=== PATIENT | male | born 1975 | race Caucasian/White ===

== ENCOUNTER 2016-07-25 11:35 | Inpatient (IN) | payer OTHER ==
[2016-07-25 11:53] VITALS: BMI 19.8
[2016-07-25] MEDS ORDERED: IBUPROFEN 400 MG TABLET (FP) PO PRN (13:14)
[2016-07-25] MEDS ORDERED: MAGNESIUM CITRATE 300 ML BOTTLE PO PRN (13:14)
[2016-07-25] MEDS ORDERED: ACETAMINOPHEN 325 MG TABLET (FP) PO PRN (13:14)
[2016-07-25] MEDS ORDERED: guaiFENesin/D-METHORPHAN HB 10 ML UNIT-DOSE CUPS PO PRN (13:14)
[2016-07-25] MEDS ORDERED: chlordiazePOXIDE HCL 25 MG CAPSULE PO PRN (13:14)
[2016-07-25] MEDS ORDERED: MAG HYDROX/AL HYDROX/SIMETH 30 ML UNIT-DOSE CUP PO PRN (13:14)
[2016-07-25] MEDS ORDERED: MAGNESIUM HYDROX 2400MG/30ML ORAL SUSPENSION 30 ML CUP PO PRN (13:14)
[2016-07-25] MEDS ORDERED: P-EPHED 60MG/TRIPROLIDI 2.5MG TABLET PO PRN (13:14)
[2016-07-25] MEDS ORDERED: LOPERAMIDE HCL 2 MG CAPSULE PO PRN (13:14)
[2016-07-25] MEDS ORDERED: MENTHOL/PHENOL 1 EACH UD MM PRN (13:14)
[2016-07-25] MEDS ORDERED: NICOTINE POLACRILEX 4 MG GUM BUC PRN (13:14)
--- NOTE | 2016-07-25 13:14 | HP ---
CIWA Score - CIWA Score Nausea/Vomitin Muscle Tremors: 4-Moderate,w/Arms Extend Anxiety: 4-Mod. Anxious/Guarded Agitation: 4-Moderately Restless Paroxysmal Sweats: 3 Orientation: 0-Oriented Tacttile Disturbances: 1-Very Mild Itch/Numbness Auditory Disturbances: 0-None Visual Disturbances: 0-None Headache: 1-Very Mild CIWA-Ar Total Score: 22 Admission ROS BHS - HPI Chief Complaint: requesting detoxification from alcohol Allergies/Adverse Reactions: Allergies Allergy/AdvReac Type Severity Reaction Status Date / Time diphenhydramine HCl Allergy Severe Difficulty Verified 07/25/16 13:10 [From Benadryl] Breathing History of Present Illness: 40 yo m w h/o alcohol dependence since age 16, h/o alcohol withdrawal seizures, last seizure 3-4 months ago, on keppra for alcohol withdrawal 8 25 fl oz beer cans and vodka daily, last drink this AM. took benzodiazepines prescribed by MD for detox. Signed out AMA last month because of court date. no other illicit drug use reported PMHX asthma, depression, anxiety and insomnia reports recent wt loss and dry heaves Exam Limitations: No Limitations - Ebola screening Have you traveled outside of the country in the last 21 days: No Have you had contact with anyone from an Ebola affected area: No Have you been sick,other than usual withdrawal symptoms: No Do you have a fever: No - Review of Systems Constitutional: See HPI, Loss of Appetite, Changes in sleep, Unintentional Wgt. Loss EENT: reports: No Symptoms Reported (from asthma, not present now) Respiratory: reports: Shortness of Breath, Wheezing Cardiac: reports: No Symptoms Reported GI: reports: Nausea, Poor Appetite, Poor Fluid Intake, Vomiting, Abdominal cramping : reports: No Symptoms Reported Musculoskeletal: reports: No Symptoms Reported Integumentary: reports: Dryness, Other (eczema) Neuro: reports: Seizure (alcohol withdrawal seizure on keppra, last seizure seeral months ago), Tremors Endocrine: reports: No Symptoms Reported Hematology: reports: No Symptoms Reported Psychiatric: reports: Judgement Intact, Mood/Affect Appropiate, Orientated x3, Anxious, Depressed Other Systems: Reviewed and Negative Patient History - Patient Medical History Hx Anemia: No Hx Asthma: Yes (on albuterol inhaler) Hx Chronic Obstructive Pulmonary Disease (COPD): No Hx Cancer: No Hx Cardiac Disorders: No Hx Congestive Heart Failure: No Hx Hypertension: No Hx Hypercholesterolemia: No Hx Pacemaker: No HX Cerebrovascular Accident: No Hx Seizures: Yes (last in 04/17) Hx Dementia: No Hx Diabetes: No Hx Gastrointestinal Disorders: No Hx Liver Disease: No Hx Genitourinary Disorders: No Hx Sexually Transmitted Disorders: No Hx Renal Disease (ESRD): No Hx Thyroid Disease: No Hx Human Immunodeficiency Virus (HIV): No Hx Hepatitis C: No Hx Depression: Yes (anxiety) Hx Suicide Attempt: No Hx Bipolar Disorder: No Hx Schizophrenia: No - Patient Surgical History Past Surgical History: No Hx Neurologic Surgery: No Hx Cataract Extraction: No Hx Cardiac Surgery: No Hx Lung Surgery: No Hx Breast Surgery: No Hx Breast Biopsy: No Hx Abdominal Surgery: No Hx Appendectomy: No Hx Cholecystectomy: No Hx Genitourinary Surgery: No Hx Section: No Hx Orthopedic Surgery: No Anesthesia Reaction: No - PPD History Date: 06/08/15 Results: 0 MM - Reproductive History Patient is a Female of Child Bearing Age (11 -55 yrs old): No Patient : No - Smoking Cessation Smoking history: Current every day smoker Have you smoked in the past 12 months: Yes Aproximately how many cigarettes per day: 30 Cigars Per Day: 0 Hx Chewing Tobacco Use: No Initiated information on smoking cessation: Yes 'Breaking Loose' booklet given: 07/25/16 - Substance & Tx. History Hx Alcohol Use: Yes (beer and vodka dily) Hx Substance Use: Yes Substance Use Type: Alcohol, Tranquilizers Hx Substance Use Treatment: Yes - Substances Abused Alcohol Route: Oral Frequency: Daily Amount used: 8 25 OZ BEERS Age of first use: 16 Date of Last Use: 07/25/16 Family Disease History - Family Disease History Family Disease History: Diabetes: Grandparent, Heart Disease: Father ( [place]), [place]: Grandparent, Other: Father, Mother (alive, no med hx) Admission Physical Exam BHS - Vital Signs Vital Signs: Vital Signs - 24 hr 07/25/16 11:47 Temperature 97 F L Pulse Rate 101 H Respiratory 20 Rate Blood Pressure 133/73 - Physical General Appearance: Yes: Disheveled, Mild Distress, Alcohol on Breath, Thin, Tremorous, Irritable, Sweating, Anxious HEENTM: Yes: EOMI, Hearing grossly Normal, Normal ENT Inspection, Normocephalic , Normal Voice, MIGUEL A, Pharynx Normal Respiratory: Yes: Within Normal Limits, Chest Non-Tender, Lungs Clear, Normal Breath Sounds, No Respiratory Distress, No Accessory Muscle Use Neck: Yes: Within Normal Limits, No masses,lesions,Nodules, Supple, Trachea in good position Breast: Yes: Breast Exam Deferred Cardiology: Yes: Within Normal Limits, Regular Rhythm, Regular Rate, S1, S2 Abdominal: Yes: Within Normal Limits, Normal Bowel Sounds, Non Tender, Flat, Soft Genitourinary: Yes: Within Normal Limits Back: Yes: Within Normal Limits, Normal Inspection Musculoskeletal: Yes: Within Normal Limits, full range of Motion, Gait Steady Extremities: Yes: Within Normal Limits, Normal Capillary Refill, Normal Inspection, Normal Range of Motion, Non-Tender, Tremors Neurological: Yes: Within Normal Limits, stna II-XII NML intact, Fully Oriented, Alert, Motor Strength 5/5, Normal Response, Depressed Affect Integumentary: Yes: Within Normal Limits, Normal Color, Dry, Warm Lymphatic: Yes: Within Normal Limits - Diagnostic (1) Alcohol dependence with uncomplicated withdrawal Current Visit: Yes Status: Chronic (2) Drug-induced mood disorder Current Visit: Yes Status: Acute (3) Anxiety disorder Current Visit: No Status: Chronic Qualifiers: Anxiety disorder type: generalized anxiety disorder Qualified Code(s ): F41.1 - Generalized anxiety disorder (4) Asthma Current Visit: No Status: Chronic Qualifiers: Asthma severity: mild intermittent Asthma complication type: uncomplicated Qualified Code(s): J45.20 - Mild intermittent asthma, uncomplicated (5) GERD (gastroesophageal reflux disease) Current Visit: No Status: Chronic Qualifiers: Esophagitis presence: without esophagitis Qualified Code(s): K21.9 - Gastro-esophageal reflux disease without esophagitis (6) MDD (major depressive disorder) Current Visit: No Status: Chronic (7) Nicotine dependence Current Visit: Yes Status: Chronic Qualifiers: Nicotine product type: cigarettes Substance use status: uncomplicated Qualified Code(s): F17.210 - Nicotine dependence, cigarettes, uncomplicated (8) OCD (obsessive compulsive disorder) Current Visit: No Status: Chronic (9) Sedative, hypnotic, or anxiolytic withdrawal Current Visit: No Status: Inactive (10) Seizure Current Visit: No Status: Inactive (11) Weight loss Current Visit: Yes Status: Acute BHS Breath Alcohol Content Breath Alcohol Content: 0.157 Urine Drug Screen - Control Is Test Valid: Yes - Results Drug Screen Negative: No Urine Drug Screen Results: BZO-Benzodiazepines
[2016-07-25] MEDS ORDERED: ALBUTEROL SO4 6.7 GM HFA INHALER IH PRN (13:19)
[2016-07-25] MEDS ORDERED: chlordiazePOXIDE HCL 25 MG CAPSULE PO ONE (14:42)
[2016-07-25] MEDS: levETIRAcetam 500 MG TABLET (FP) PO SCH ×2 (15:27→22:17)
[2016-07-25] MEDS: NICOTINE 21 MG/24 HOURS TOPICAL PATCH TD SCH (15:28)
[2016-07-25] MEDS: VITAMINS A AND D TOPICAL OINTMENT 60 GM TUBE TP SCH (15:52)
--- NOTE | 2016-07-25 16:06 | EKG ---
Test Reason : Blood Pressure : / mmHG Vent. Rate : 089 BPM Atrial Rate : 089 BPM P-R Int : 136 ms QRS Dur : 082 ms QT Int : 336 ms P-R-T Axes : 061 075 059 degrees QTc Int : 408 ms NORMAL SINUS RHYTHM MINIMAL VOLTAGE CRITERIA FOR LVH, MAY BE NORMAL VARIANT BORDERLINE ECG NO PREVIOUS ECGS AVAILABLE Confirmed by CHARO PRAKASH MD ([id number]) on 07/25/2016 4:06:21 PM Referred By: Austin Awad Confirmed By:CHARO PRAKASH MD
[2016-07-25] MEDS: chlordiazePOXIDE HCL 25 MG CAPSULE PO SCH ×2 (17:14→22:17)
--- NOTE | 2016-07-25 17:51 | CONSULT ---
[facility] Psychiatric Consult - Data Date of interview: 07/25/16 Admission source: [facility] Identifying data: This is one of multiple admisssions to [facility] for this 40 y /o male seeking detox treatment on for alcohol and benzodiazepine dependence.Patient is single without children,domiciled, unemployed and supported by his parents. Substance Abuse History: - Smoking Cessation. Smoking history: Current every day smoker. Have you smoked in the past 12 months: Yes. Aproximately how many cigarettes per day: 30. Cigars Per Day: 0. Hx Chewing Tobacco Use: No. Initiated information on smoking cessation: Yes. 'Breaking Loose' booklet given : 07/25/16. - Substance & Tx. History. Hx Alcohol Use: Yes (beer and vodka dily). Hx Substance Use: Yes. Substance Use Type: Alcohol, Tranquilizers. Hx Substance Use Treatment: Yes. - Substances Abused. Alcohol. Route: Oral. Frequency: Daily. Amount used: 8 25 OZ BEERS. Age of first use: 16. Date of Last Use: 07/25/16. Confirmed by patient. Medical History: Consistent with a history of bronchial asthma,GERD and substance-induced seizures. Psychiatric History: First contact with Psychiatry occurred approximately 20 years ago.No reported history of psychiatric hospitalizations.Mr Aquino has been diagnosed with Anxiety Disorder and Panic Disorder.He gets his outpatient psychiatric services at the [facility] clinic (formerly [facility]) where he sees Dr Islas for medication management (effexor XR 150 mg daily & 75 mg hs + remeron 30 mg po hs).Patient denies history of suicide attempts. Physical/Sexual Abuse/Trauma History: Patient denies. Additional Comment: Urine Drug Screen Results: BZO-Benzodiazepines.Noted. Psychiatric Findings - Problem List ([place] 1, 2,3) (1) Alcohol dependence with uncomplicated withdrawal Current Visit: Yes Status: Acute (2) Nicotine dependence Current Visit: Yes Status: Acute Qualifiers: Nicotine product type: cigarettes Substance use status: uncomplicated Qualified Code(s): F17.210 - Nicotine dependence, cigarettes, uncomplicated (3) Anxiety disorder Current Visit: Yes Status: Chronic Qualifiers: Anxiety disorder type: generalized anxiety disorder Qualified Code(s ): F41.1 - Generalized anxiety disorder (4) GERD (gastroesophageal reflux disease) Current Visit: No Status: Chronic Qualifiers: Esophagitis presence: without esophagitis Qualified Code(s): K21.9 - Gastro-esophageal reflux disease without esophagitis (5) MDD (major depressive disorder) Current Visit: No Status: Chronic (6) OCD (obsessive compulsive disorder) Current Visit: No Status: Chronic Comment: By history. (7) Asthma Current Visit: No Status: Chronic Qualifiers: Asthma severity: mild intermittent Asthma complication type: uncomplicated Qualified Code(s): J45.20 - Mild intermittent asthma, uncomplicated - Initial Treatment Plan Initial Treatment Plan: Psychoeducation.Detoxification.Medications : remeron 30 mg po hs + effexor ER 150 mg po daily + 75 mg po @ 4 pm (no later).Side effects/ benefits discussed with the patient,including the risk of hypertension/seizures (venlafaxine).Mr Aquino indicated that he understood the information and he verbally consented to the implementation of this careplan.According to the patient,he took the remeron last night at home and a dose of effexor this morning prior to coming to [facility].Observation.Review of pharmacy claims confirms medications as reported by the patient (filled scripts issued on 07/01/16 for remeron 30mg/hs # 30 @ [facility] and 07/19/16 for effexor ER 150 mg/75 mg ).
[2016-07-25] MEDS: METOCLOPRAMIDE HCL 10 MG TABLET (FP) PO PRN (18:56)
[2016-07-25] MEDS: hydrOXYzine PAMOATE 50 MG CAPSULE (FP) PO PRN (19:51)
[2016-07-25 20:06] LABS: URINE APPEARANCE CLEAR; URINE BILIRUBIN NEGATIVE (NEGATIVE); URINE BLOOD NEGATIVE (NEGATIVE); URINE COLOR YELLOW; URINE GLUCOSE (UA) NEGATIVE (NEGATIVE); URINE KETONE NEGATIVE (NEGATIVE); URINE LEUK ESTERASE NEGATIVE (NEGATIVE); URINE NITRITE NEGATIVE (NEGATIVE); URINE PROTEIN NEGATIVE (NEGATIVE); URINE UROBILINOGEN NEGATIVE E.U./dl (0.2-1.0)
[2016-07-25] MEDS ORDERED: VENLAFAXINE HCL 75 MG TABLET PO SCH (22:00)
[2016-07-25] MEDS: MIRTAZAPINE 30 MG TABLET (FP) PO SCH (22:17)
[2016-07-25] MEDS: THIAMINE HCL 100 MG TABLET (FP) PO SCH (22:17)
[2016-07-26] MEDS: chlordiazePOXIDE HCL 25 MG CAPSULE PO SCH ×4 (04:53→22:20)
[2016-07-26] MEDS: VENLAFAXINE HCL 150 MG E.R. CAPSULE PO SCH (08:36)
[2016-07-26 09:25] LABS: HIV 1 & 2 AB NEGATIVE; HIV 1 AGp24 NEGATIVE
[2016-07-26] MEDS ORDERED: PRENATAL VITAMINS W/ FOLIC ACID TABLET (FP) PO SCH (10:00)
[2016-07-26 10:15] LABS: MCH 33.1 pg (25.7-33.7); MCHC 33.6 g/dl (32.0-35.9); MEAN CELL VOLUME 98.5 fl (80-96); MEAN PLT VOLUME 7.7 fl (7.5-11.1); PLATELET COUNT 384 K/MM3 (134-434); RDW 14.3 % (11.9-15.9); WHITE BLOOD COUNT 5.4 K/mm3 (4.0-10.0)
[2016-07-26] MEDS: METOCLOPRAMIDE HCL 10 MG TABLET (FP) PO PRN ×2 (10:23→16:58)
[2016-07-26] MEDS: levETIRAcetam 500 MG TABLET (FP) PO SCH ×2 (10:23→22:20)
[2016-07-26] MEDS: NICOTINE 21 MG/24 HOURS TOPICAL PATCH TD SCH (10:24)
[2016-07-26] MEDS: VITAMINS A AND D TOPICAL OINTMENT 60 GM TUBE TP SCH (10:24)
--- NOTE | 2016-07-26 10:34 | PN ---
[facility] CIWA - CIWA Score Nausea/Vomitin-Int. Nausea w/Dry Heave Muscle Tremors: 4-Moderate,w/Arms Extend Anxiety: 3 Agitation: 3 Paroxysmal Sweats: 3 Orientation: 0-Oriented Tacttile Disturbances: 1-Very Mild Itch/Numbness Auditory Disturbances: 0-None Visual Disturbances: 0-None Headache: 0-None Present CIWA-Ar Total Score: 18 BHS Progress Note (SOAP) Subjective: interrupted sleep, nausea, tremor , Objective: 07/26/16 10:33 Vital Signs Temperature 97.7 F 07/26/16 09:35 Pulse Rate 93 H 07/26/16 09:35 Respiratory Rate 18 07/26/16 09:35 Blood Pressure 127/90 07/26/16 09:35 O2 Sat by Pulse Oximetry (%) Laboratory Tests 07/25/16 07/25/16 07/26/16 13:40 17:08 05:50 WBC 5.4 RBC 4.89 Hgb 16.2 Hct 48.2 MCV 98.5 H MCHC 33.6 RDW 14.3 Plt Count 384 MPV 7.7 Urine Color Yellow Urine Appearance Clear Urine pH 6.0 Ur Specific [place] 1.017 Urine Protein Negative Urine Glucose (UA) Negative Urine Ketones Negative Urine Blood Negative Urine Nitrite Negative Urine Bilirubin Negative Urine Urobilinogen Negative Ur Leukocyte Esterase Negative HIV 1&2 Antibody Screen Negative HIV P24 Antigen Negative pt aox3 in nad ambulating Assessment: 07/26/16 10:34 withdrawl sx;s Plan: cont. detox increase fluids prn librium
[2016-07-26] MEDS ORDERED: COLLOIDAL OATMEAL 1 BAR EACH TP PRN (10:48)
[2016-07-26 11:06] LABS: ALBUMIN 4.3 g/dl (3.4-5.0); ALK PHOS 74 U/L (45-117); ANION GAP 9 (8-16); BILIRUBIN,TOTAL 0.2 mg/dL (0.2-1.0); CALCIUM 8.9 mg/dL (8.5-10.1); CO2 27 mmol/L (21-32); CREATININE 0.7 mg/dL (0.7-1.3); GLUCOSE,RANDOM 86 mg/dL (74-106); SGOT/AST 50 U/L (15-37); SGPT/ALT 46 U/L (12-78); TOT PROT 7.8 g/dl (6.4-8.2)
[2016-07-26] MEDS: hydrOXYzine PAMOATE 50 MG CAPSULE (FP) PO PRN ×2 (13:10→20:07)
--- NOTE | 2016-07-26 14:34 | PN ---
[facility] Progress Note Note: Psychiatry Attending's note :
[2016-07-26] MEDS ORDERED: VENLAFAXINE HCL 75 MG E.R. CAPSULES (FP) PO SCH (21:00)
[2016-07-26] MEDS: THIAMINE HCL 100 MG TABLET (FP) PO SCH (22:20)
[2016-07-26] MEDS: MIRTAZAPINE 30 MG TABLET (FP) PO SCH (22:20)
[2016-07-27] MEDS: chlordiazePOXIDE HCL 25 MG CAPSULE PO SCH (05:28)
[2016-07-27] MEDS: VENLAFAXINE HCL 150 MG E.R. CAPSULE PO SCH (07:44)
[2016-07-27 09:35] VITALS: BP 111/80; PULSE 95; TEMP 97.5
--- NOTE | 2016-07-27 09:44 | PN ---
[facility] CIWA - CIWA Score Nausea/Vomitin-No Nausea/No Vomiting Muscle Tremors: 3 Anxiety: 3 Agitation: 3 Paroxysmal Sweats: 3 Orientation: 0-Oriented Tacttile Disturbances: 0-None Auditory Disturbances: 0-None Visual Disturbances: 0-None Headache: 1-Very Mild CIWA-Ar Total Score: 13 S Progress Note (SOAP) Subjective: agitation sweats irritable mild shakes Objective: 07/27/16 09:41 Vital Signs Temperature 97.5 F L 07/27/16 09:34 Pulse Rate 95 H 07/27/16 09:34 Respiratory Rate 20 07/27/16 09:34 Blood Pressure 111/80 07/27/16 09:34 O2 Sat by Pulse Oximetry (%) Laboratory Tests 07/25/16 07/25/16 07/26/16 13:40 17:08 05:50 WBC 5.4 RBC 4.89 Hgb 16.2 Hct 48.2 MCV 98.5 H MCHC 33.6 RDW 14.3 Plt Count 384 MPV 7.7 Sodium Potassium Chloride Carbon Dioxide Anion Gap BUN Creatinine Creat Clearance w eGFR Random Glucose Calcium Total Bilirubin AST ALT Alkaline Phosphatase Total Protein Albumin Urine Color Yellow Urine Appearance Clear Urine pH 6.0 Ur Specific [place] 1.017 Urine Protein Negative Urine Glucose (UA) Negative Urine Ketones Negative Urine Blood Negative Urine Nitrite Negative Urine Bilirubin Negative Urine Urobilinogen Negative Ur Leukocyte Esterase Negative RPR Titer HIV 1&2 Antibody Screen Negative HIV P24 Antigen Negative 07/26/16 07/26/16 05:50 05:50 WBC RBC Hgb Hct MCV MCHC RDW Plt Count MPV Sodium 139 Potassium 4.5 Chloride 103 Carbon Dioxide 27 Anion Gap 9 BUN 6 L Creatinine 0.7 Creat Clearance w eGFR > 60 Random Glucose 86 D Calcium 8.9 Total Bilirubin 0.2 D AST 50 H D ALT 46 Alkaline Phosphatase 74 Total Protein 7.8 Albumin 4.3 Urine Color Urine Appearance Urine pH Ur Specific [place] Urine Protein Urine Glucose (UA) Urine Ketones Urine Blood Urine Nitrite Urine Bilirubin Urine Urobilinogen Ur Leukocyte Esterase RPR Titer Nonreactive HIV 1&2 Antibody Screen HIV P24 Antigen awake/alert ambulating no acute distress Assessment: 07/27/16 09:42 withdrawal sx Plan: continue detox increase fluids
--- NOTE | 2016-07-27 09:52 | PN ---
[facility] Progress Note Note: pt states he feels better and wants to sign out. pt spoke with counselor, RN, and [facility] but pt still insist to leave.
--- NOTE | 2016-07-27 09:59 | DS ---
[facility] Detox Discharge Summary Admission Date: 07/25/16 Discharge Date: 07/27/16 (refused to complete detox. AMA) - History Present History: Alcohol Dependence - Physical Exam Results Vital Signs: Vital Signs Temperature 97.5 F L 07/27/16 09:34 Pulse Rate 95 H 07/27/16 09:34 Respiratory Rate 20 07/27/16 09:34 Blood Pressure 111/80 07/27/16 09:34 O2 Sat by Pulse Oximetry (%) - Medication Discharge Medications: Ambulatory Orders Albuterol Sulfate Inhaler - [Ventolin Hfa Inhaler -] 2 inh PO Q4H PRN 06/06/15 Levetiracetam [Keppra -] 1,000 mg PO BID 03/26/16 Mirtazapine [Remeron -] 30 mg PO HS #30 tablet 06/07/16 Venlafaxine HCl ER [Effexor Xr -] 75 mg PO HS #30 cap.er.24h 06/07/16 Venlafaxine HCl ER [Effexor Xr -] 150 mg PO DAILY #30 cap.er.24h 06/07/16 Metoclopramide HCl [Reglan -] 10 mg PO BID PRN 07/25/16 Petrolatum,White/Lanolin [Vitamin A & D Ointment] 454 gm TP DAILY 07/25/16 Mirtazapine [Remeron -] 30 mg PO HS #30 tablet 07/26/16 - Diagnosis (1) Alcohol dependence with uncomplicated withdrawal Current Visit: Yes Status: Chronic (2) Drug-induced mood disorder Current Visit: Yes Status: Acute (3) Nicotine dependence Current Visit: Yes Status: Chronic Qualifiers: Nicotine product type: cigarettes Substance use status: uncomplicated Qualified Code(s): F17.210 - Nicotine dependence, cigarettes, uncomplicated (4) Weight loss Current Visit: Yes Status: Acute (5) Anxiety disorder Current Visit: Yes Status: Chronic Qualifiers: Anxiety disorder type: generalized anxiety disorder Qualified Code(s ): F41.1 - Generalized anxiety disorder (6) Asthma Current Visit: Yes Status: Chronic Qualifiers: Asthma severity: mild intermittent Asthma complication type: uncomplicated Qualified Code(s): J45.20 - Mild intermittent asthma, uncomplicated (7) GERD (gastroesophageal reflux disease) Current Visit: Yes Status: Chronic Qualifiers: Esophagitis presence: without esophagitis Qualified Code(s): K21.9 - Gastro-esophageal reflux disease without esophagitis (8) MDD (major depressive disorder) Current Visit: No Status: Chronic (9) OCD (obsessive compulsive disorder) Current Visit: No Status: Chronic - AMA Did Patient Leave Against Medical Advice: Yes
[2016-07-27] MEDS ORDERED: chlordiazePOXIDE 5 MG CAPSULE PO SCH (17:00)
[2016-07-28] MEDS ORDERED: chlordiazePOXIDE HCL 10 MG CAPSULE PO SCH (17:00)
== END 2016-07-27 12:07 | disposition left against medical advice (07) | DRG 770 ==
LOC: YASAS 11:35 → Y6N 14:31
PROVIDERS: ADMIT Internal Medicine Addiction Medicine; ATTEND Internal Medicine Addiction Medicine
PROC: HZ2ZZZZ Detoxification Services for Substance Abuse Treatment (ICD-10-PCS; principal; 2016-07-25)
DX: F10.230 Alcohol dependence with withdrawal, uncomplicated (principal); F13.230 Sedative, hypnotic or anxiolytic dependence with withdrawal, uncomplicated; F17.210 Nicotine dependence, cigarettes, uncomplicated; F19.24 Other psychoactive substance dependence with psychoactive substance-induced mood disorder; F41.1 Generalized anxiety disorder; F33.9 Major depressive disorder, recurrent, unspecified; F42.9 Obsessive-compulsive disorder, unspecified; J45.20 Mild intermittent asthma, uncomplicated; K21.9 Gastro-esophageal reflux disease without esophagitis; Z86.69 Personal history of other diseases of the nervous system and sense organs; Z87.898 Personal history of other specified conditions
CPT/HCPCS: 36415; 80053; 81003; 85027; 86593; 87389; 93005; 93010

== ENCOUNTER 2017-02-07 13:55 | Inpatient (IN) | payer OTHER ==
[2017-02-07 15:28] VITALS: BMI 19.4
--- NOTE | 2017-02-07 19:09 | HP ---
CIWA Score - CIWA Score Nausea/Vomitin Muscle Tremors: 3 Anxiety: 3 Agitation: 3 Paroxysmal Sweats: 2 Orientation: 0-Oriented Tacttile Disturbances: 2-Mild Itch/Numbness/Burn Auditory Disturbances: 2-Mild Harshness/Frighten Visual Disturbances: 2-Mild Sensitivity Headache: 2-Mild CIWA-Ar Total Score: 22 Admission ROS BHS - HPI Chief Complaint: i am here for detox from alcohol and valium Allergies/Adverse Reactions: Allergies Allergy/AdvReac Type Severity Reaction Status Date / Time diphenhydramine HCl Allergy Severe Difficulty Verified 02/07/17 18:22 [From Benadryl] Breathing History of Present Illness: this 41 years old mal with alcohol and valium dependence,seeking detox,last treatment in 12/17 [facility] multiple admissions but keep relapsing multiple medical problem asthma,gerd,seizure,nicotine dependence, anxiety,depression,insomnia longest period of sobriety for 6 months Exam Limitations: No Limitations - Ebola screening Have you traveled outside of the country in the last 21 days: No Have you had contact with anyone from an Ebola affected area: No Have you been sick,other than usual withdrawal symptoms: No Do you have a fever: No - Review of Systems Constitutional: Chills, Loss of Appetite, Malaise, Night Sweats, Changes in sleep, Weakness, Unintentional Wgt. Loss EENT: reports: Tearing, Nose Congestion Respiratory: reports: Other (asthm) Cardiac: reports: Palpitations GI: reports: Diarrhea, Nausea, Vomiting, Abdominal cramping : reports: No Symptoms Reported Musculoskeletal: reports: Back Pain, Muscle Pain Integumentary: reports: Dryness Neuro: reports: Headache, Tremors Endocrine: reports: No Symptoms Reported Hematology: reports: No Symptoms Reported Psychiatric: reports: No Sypmtoms Reported, Judgement Intact, Mood/Affect Appropiate, Anxious, Depressed (insomnia) Patient History - Patient Medical History Hx Anemia: No Hx Asthma: Yes (on albuterol inhaler) Hx Chronic Obstructive Pulmonary Disease (COPD): No Hx Cancer: No Hx Cardiac Disorders: No Hx Congestive Heart Failure: No Hx Hypertension: No Hx Hypercholesterolemia: No Hx Pacemaker: No HX Cerebrovascular Accident: No Hx Seizures: Yes (last in 04/17) Hx Dementia: No Hx Diabetes: No Hx Gastrointestinal Disorders: No Hx Liver Disease: No Hx Genitourinary Disorders: No Hx Sexually Transmitted Disorders: No Hx Renal Disease (ESRD): No Hx Thyroid Disease: No Hx Human Immunodeficiency Virus (HIV): No Hx Hepatitis C: No Hx Depression: Yes (anxiety) Hx Suicide Attempt: No Hx Bipolar Disorder: No Hx Schizophrenia: No Other Medical History: insomnia,no suicidal,no homicidal - Patient Surgical History Past Surgical History: No Hx Neurologic Surgery: No Hx Cataract Extraction: No Hx Cardiac Surgery: No Hx Lung Surgery: No Hx Breast Surgery: No Hx Breast Biopsy: No Hx Abdominal Surgery: No Hx Appendectomy: No Hx Cholecystectomy: No Hx Genitourinary Surgery: No Hx Section: No Hx Orthopedic Surgery: No Anesthesia Reaction: No - PPD History Previous Implant?: Yes Documented Results: Negative w/proof Date: 07/27/16 Results: 0 MM PPD to be Administered?: No - Smoking Cessation Smoking history: Current every day smoker Have you smoked in the past 12 months: Yes Aproximately how many cigarettes per day: 30 Cigars Per Day: 0 Hx Chewing Tobacco Use: No Initiated information on smoking cessation: No - Substance & Tx. History Hx Alcohol Use: Yes Hx Substance Use: Yes Substance Use Type: Alcohol, Tranquilizers - Substances Abused Alcohol Route: Oral Frequency: Daily Amount used: BEER- 8, 25oz Age of first use: 16 Date of Last Use: 02/07/17 valium Route: Oral Frequency: Daily Amount used: 15 mgs Age of first use: 16 Date of Last Use: 02/07/17 Family Disease History - Family Disease History Family Disease History: Diabetes: Grandparent, Heart Disease: Father ( [place]), [place]: Grandparent, Other: Father, Mother (alive, no med hx) Admission Physical Exam S - Vital Signs Vital Signs: Vital Signs - 24 hr 02/07/17 15:27 Temperature 97 F L Pulse Rate 112 H Respiratory 20 Rate Blood Pressure 122/69 - Physical General Appearance: Yes: Moderate Distress, Tremorous, Irritable, Sweating, Anxious HEENTM: Yes: Normocephalic, MIGUEL A, Pharynx Normal Respiratory: Yes: Lungs Clear, Normal Breath Sounds, No Respiratory Distress Neck: Yes: Within Normal Limits Breast: Yes: Within Normal Limits Cardiology: Yes: Tachycardia Abdominal: Yes: Within Normal Limits, Normal Bowel Sounds, Non Tender, Flat, Soft Genitourinary: Yes: Within Normal Limits Back: Yes: Muscle Spasm Musculoskeletal: Yes: Back pain, Muscle Pain Extremities: Yes: Tremors Neurological: Yes: lead pharmacy technician II-XII NML intact, Fully Oriented, Alert, Motor Strength 5/5 Integumentary: Yes: Dry Lymphatic: Yes: Within Normal Limits - Diagnostic (1) Weight loss Current Visit: No Status: Acute (2) Alcohol dependence with uncomplicated withdrawal Current Visit: No Status: Chronic (3) Anxiety disorder Current Visit: No Status: Chronic Qualifiers: Anxiety disorder type: generalized anxiety disorder Qualified Code(s ): F41.1 - Generalized anxiety disorder (4) Asthma Current Visit: No Status: Chronic Qualifiers: Asthma severity: mild intermittent Asthma complication type: uncomplicated Qualified Code(s): J45.20 - Mild intermittent asthma, uncomplicated (5) GERD (gastroesophageal reflux disease) Current Visit: No Status: Chronic Qualifiers: Esophagitis presence: without esophagitis Qualified Code(s): K21.9 - Gastro-esophageal reflux disease without esophagitis (6) MDD (major depressive disorder) Current Visit: No Status: Chronic (7) Nicotine dependence Current Visit: No Status: Chronic Qualifiers: Nicotine product type: cigarettes Substance use status: uncomplicated Qualified Code(s): F17.210 - Nicotine dependence, cigarettes, uncomplicated (8) OCD (obsessive compulsive disorder) Current Visit: No Status: Chronic Comment: By history. (9) Uncomplicated sedative, hypnotic or anxiolytic withdrawal Current Visit: Yes Status: Acute Cleared for Admission [facility] - Detox or Rehab [facility] Level of Care: Medically Managed Detox Regimen/Protocol: Librium [facility] Breath Alcohol Content Breath Alcohol Content: 0.202 Urine Drug Screen - Results Drug Screen Negative: No Urine Drug Screen Results: BZO-Benzodiazepines
[2017-02-07] MEDS ORDERED: ACETAMINOPHEN 325 MG TABLET (FP) PO PRN (19:22)
[2017-02-07] MEDS ORDERED: P-EPHED 60MG/TRIPROLIDI 2.5MG TABLET PO PRN (19:22)
[2017-02-07] MEDS ORDERED: MAG HYDROX/AL HYDROX/SIMETH 30 ML UNIT-DOSE CUP PO PRN (19:22)
[2017-02-07] MEDS ORDERED: MAGNESIUM CITRATE 300 ML BOTTLE PO PRN (19:22)
[2017-02-07] MEDS ORDERED: guaiFENesin/D-METHORPHAN HB 10 ML UNIT-DOSE CUPS PO PRN (19:22)
[2017-02-07] MEDS ORDERED: MAGNESIUM HYDROX 2400MG/30ML ORAL SUSPENSION 30 ML CUP PO PRN (19:22)
[2017-02-07] MEDS ORDERED: IBUPROFEN 400 MG TABLET (FP) PO PRN (19:22)
[2017-02-07] MEDS ORDERED: hydrOXYzine PAMOATE 50 MG CAPSULE (FP) PO PRN (19:22)
[2017-02-07] MEDS ORDERED: LOPERAMIDE HCL 2 MG CAPSULE PO PRN (19:22)
[2017-02-07] MEDS ORDERED: MENTHOL/PHENOL 1 EACH UD MM PRN (19:22)
[2017-02-07] MEDS ORDERED: chlordiazePOXIDE HCL 25 MG CAPSULE PO ONE (19:25)
[2017-02-07] MEDS ORDERED: chlordiazePOXIDE HCL 25 MG CAPSULE PO PRN (19:25)
[2017-02-07] MEDS ORDERED: ALBUTEROL SO4 6.7 GM HFA INHALER IH PRN (19:26)
[2017-02-07] MEDS: NICOTINE 21 MG/24 HOURS TOPICAL PATCH TD SCH (20:32)
[2017-02-07] MEDS: ONDANSETRON *ODT* 4 MG TABLET SL PRN (20:33)
[2017-02-07] MEDS ORDERED: THIAMINE HCL 100 MG TABLET (FP) PO SCH (22:00)
[2017-02-07] MEDS: levETIRAcetam 500 MG TABLET (FP) PO SCH (22:50)
[2017-02-07] MEDS: chlordiazePOXIDE HCL 25 MG CAPSULE PO SCH (22:50)
[2017-02-07 23:43] LABS: URINE APPEARANCE CLEAR; URINE BILIRUBIN NEGATIVE (NEGATIVE); URINE BLOOD NEGATIVE (NEGATIVE); URINE COLOR STRAW; URINE GLUCOSE (UA) NEGATIVE (NEGATIVE); URINE KETONE NEGATIVE (NEGATIVE); URINE LEUK ESTERASE NEGATIVE (NEGATIVE); URINE NITRITE NEGATIVE (NEGATIVE); URINE PROTEIN NEGATIVE (NEGATIVE); URINE UROBILINOGEN NEGATIVE mg/dL (0.2-1.0)
[2017-02-08] MEDS: chlordiazePOXIDE HCL 25 MG CAPSULE PO SCH ×2 (06:06→10:07)
[2017-02-08 09:56] LABS: MCH 31.9 pg (25.7-33.7); MCHC 33.2 g/dl (32.0-35.9); MEAN CELL VOLUME 96.2 fl (80-96); PLATELET COUNT 225 K/MM3 (134-434); RDW 14.4 % (11.9-15.9); WHITE BLOOD COUNT 6.4 K/mm3 (4.0-10.0)
[2017-02-08] MEDS ORDERED: PRENATAL VITAMINS W/ FOLIC ACID TABLET (FP) PO SCH (10:00)
[2017-02-08] MEDS: levETIRAcetam 500 MG TABLET (FP) PO SCH (10:07)
[2017-02-08] MEDS: NICOTINE 21 MG/24 HOURS TOPICAL PATCH TD SCH (10:07)
[2017-02-08] MEDS: ONDANSETRON *ODT* 4 MG TABLET SL PRN (10:10)
[2017-02-08 10:46] LABS: ALBUMIN 3.8 g/dl (3.4-5.0); ALK PHOS 54 U/L (45-117); ANION GAP 6 (8-16); BILIRUBIN,TOTAL 0.5 mg/dL (0.2-1.0); CALCIUM 8.8 mg/dL (8.5-10.1); CO2 28 mmol/L (21-32); CREATININE 0.9 mg/dL (0.7-1.3); GLUCOSE,RANDOM 81 mg/dL (74-106); SGOT/AST 20 U/L (15-37); SGPT/ALT 25 U/L (12-78); TOT PROT 6.9 g/dl (6.4-8.2)
[2017-02-08 14:28] VITALS: BP 123/83; PULSE 89; TEMP 96.7
--- NOTE | 2017-02-08 14:50 | EKG ---
Test Reason : Blood Pressure : / mmHG Vent. Rate : 098 BPM Atrial Rate : 098 BPM P-R Int : 132 ms QRS Dur : 086 ms QT Int : 324 ms P-R-T Axes : 062 074 055 degrees QTc Int : 413 ms NORMAL SINUS RHYTHM NORMAL ECG WHEN COMPARED WITH ECG OF 25-JUL-2016 15:14, NO SIGNIFICANT CHANGE WAS FOUND Confirmed by NINO JONH MD ([id number]) on 02/08/2017 2:50:28 PM Referred By: Confirmed By:NINO JOHN MD
--- NOTE | 2017-02-08 15:15 | CONSULT ---
[facility] Psychiatric Consult - Data Date of interview: 02/08/17 Admission source: [facility] Identifying data: Another admisssion to [facility] for this 41 y/o male seeking detox treatment on for alcohol dependence.Patient is single without children,domiciled,unemployed and supported by relatives. Substance Abuse History: Discussed with patient.He confirms this report. Smoking Cessation. Smoking history: Current every day smoker. Have you smoked in the past 12 months: Yes. Aproximately how many cigarettes per day: 30. Cigars Per Day: 0. Hx Chewing Tobacco Use: No. Initiated information on smoking cessation: No. - Substance & Tx. History. Hx Alcohol Use: Yes. Hx Substance Use: Yes. Substance Use Type: Alcohol, Tranquilizers. - Substances Abused. Alcohol. Route: Oral. Frequency: Daily. Amount used: BEER- 8, 25oz. Age of first use: 16. Date of Last Use: 02/07/17. valium. Route: Oral. Frequency: Daily. Amount used: 15 mgs. Age of first use: 16. Date of Last Use: 02/07/17 Medical History: Bronchial asthma,GERD and substance-induced seizures. Psychiatric History: No reported history of psychiatric hospitalizations.Diagnosed with Anxiety Disorder and Panic Disorder.He gets his outpatient psychiatric services at the [facility] in the [place].Maintained on effexor 150 mg daily & 75 mg hs + remeron 15 mg po hs.Patient denies history of suicide attempts. Physical/Sexual Abuse/Trauma History: Patient denies. Additional Comment: Urine Drug Screen Results: BZO-Benzodiazepines.Noted. Mental Status Exam - Mental Status Exam Alert and Oriented to: Time, Place, Person Cognitive Function: Good Patient Appearance: Well Groomed Mood: Withdrawn Affect: Mood Congruent Patient Behavior: Fatigued, Appropriate, Cooperative Speech Pattern: Clear Voice Loudness: Normal Thought Process: Goal Oriented Thought Disorder: Not Present Hallucinations: Denies Suicidal Ideation: Denies Homicidal Ideation: Denies Insight/Judgement: Poor Sleep: Poorly, Difficulty falling asleep Appetite: Good Muscle strength/Tone: Normal Gait/Station: Normal Psychiatric Findings - Problem List ([place] 1, 2,3) (1) Alcohol dependence with uncomplicated withdrawal Current Visit: Yes Status: Acute (2) Uncomplicated sedative, hypnotic or anxiolytic withdrawal Current Visit: Yes Status: Acute (3) Nicotine dependence Current Visit: Yes Status: Acute Qualifiers: Nicotine product type: cigarettes Substance use status: uncomplicated Qualified Code(s): F17.210 - Nicotine dependence, cigarettes, uncomplicated (4) Drug-induced mood disorder Current Visit: Yes Status: Acute (5) MDD (major depressive disorder) Current Visit: Yes Status: Chronic Comment: History. (6) Asthma Current Visit: Yes Status: Chronic Qualifiers: Asthma severity: mild intermittent Asthma complication type: uncomplicated Qualified Code(s): J45.20 - Mild intermittent asthma, uncomplicated (7) GERD (gastroesophageal reflux disease) Current Visit: Yes Status: Chronic Qualifiers: Esophagitis presence: without esophagitis Qualified Code(s): K21.9 - Gastro-esophageal reflux disease without esophagitis (8) Insomnia Current Visit: Yes Status: Acute - Initial Treatment Plan Initial Treatment Plan: Psychoeducation.Detoxification.Medications : effexor 150 mg po daily + 75 mg po hs.Side effects/benefits discussed with the patient.He is in agreement with this careplan.Observation.Medications verified ( filled script on 01/16/17 at [facility] for effexor 150 mg/day - 30 day supply).
--- NOTE | 2017-02-08 15:41 | PN ---
S CIWA - CIWA Score Nausea/Vomitin-Int. Nausea w/Dry Heave Muscle Tremors: 3 Anxiety: 3 Agitation: 2 Paroxysmal Sweats: 2 Orientation: 2-Disoriented Date<2 days Tacttile Disturbances: 3-Moderate Itch/Numb/Burn Auditory Disturbances: 0-None Visual Disturbances: 0-None Headache: 0-None Present CIWA-Ar Total Score: 19 BHS Progress Note (SOAP) Subjective: Nausea, Sweating, Stomach Cramping, Interrupted sleep. Objective: PT. A & O X 3, OBSERVED AMBULATING ON UNIT. NO ACUTE DISTRESS. PT. DENIES CHEST PAIN. 02/08/17 15:39 Vital Signs Temperature 96.7 F L 02/08/17 14:27 Pulse Rate 89 02/08/17 14:27 Respiratory Rate 18 02/08/17 14:27 Blood Pressure 123/83 02/08/17 14:27 O2 Sat by Pulse Oximetry (%) Laboratory Tests 02/07/17 02/08/17 02/08/17 Unknown 07:40 07:40 WBC 6.4 RBC 4.63 Hgb 14.8 Hct 44.5 MCV 96.2 H MCH 31.9 MCHC 33.2 RDW 14.4 Plt Count 225 D MPV 8.0 Sodium 142 Potassium 4.5 Chloride 108 H Carbon Dioxide 28 Anion Gap 6 L BUN 8 D Creatinine 0.9 D Creat Clearance w eGFR > 60 Random Glucose 81 Calcium 8.8 Total Bilirubin 0.5 D AST 20 D ALT 25 D Alkaline Phosphatase 54 D Total Protein 6.9 Albumin 3.8 Urine Color Straw Urine Appearance Clear Urine pH 6.0 Ur Specific [place] <= 1.005 Urine Protein Negative Urine Glucose (UA) Negative Urine Ketones Negative Urine Blood Negative Urine Nitrite Negative Urine Bilirubin Negative Urine Urobilinogen Negative Ur Leukocyte Esterase Negative RPR Titer 02/08/17 07:40 WBC RBC Hgb Hct MCV MCH MCHC RDW Plt Count MPV Sodium Potassium Chloride Carbon Dioxide Anion Gap BUN Creatinine Creat Clearance w eGFR Random Glucose Calcium Total Bilirubin AST ALT Alkaline Phosphatase Total Protein Albumin Urine Color Urine Appearance Urine pH Ur Specific [place] Urine Protein Urine Glucose (UA) Urine Ketones Urine Blood Urine Nitrite Urine Bilirubin Urine Urobilinogen Ur Leukocyte Esterase RPR Titer Nonreactive LABS NOTED. Assessment: WITHDRAWAL SYMPTOMS. 02/08/17 15:40 Plan: CONTINUE DETOX.
--- NOTE | 2017-02-08 17:34 | DS ---
[facility] Detox Discharge Summary Admission Date: 02/07/17 Discharge Date: 02/08/17 - History Present History: Alcohol Dependence, Sedative Dependence Pertinent Past History: GERD Seizure - Physical Exam Results Vital Signs: Vital Signs Temperature 96.7 F L 02/08/17 14:27 Pulse Rate 89 02/08/17 14:27 Respiratory Rate 18 02/08/17 14:27 Blood Pressure 123/83 02/08/17 14:27 O2 Sat by Pulse Oximetry (%) Pertinent Admission Physical Exam Findings: Withdrawal sx. Laboratory Last Values WBC 6.4 K/mm3 (4.0-10.0) 02/08/17 07:40 RBC 4.63 M/mm3 (4.00-5.60) 02/08/17 07:40 Hgb 14.8 GM/dL (11.7-16.9) 02/08/17 07:40 Hct 44.5 % (35.4-49) 02/08/17 07:40 MCV 96.2 fl (80-96) H 02/08/17 07:40 MCH 31.9 pg (25.7-33.7) 02/08/17 07:40 MCHC 33.2 g/dl (32.0-35.9) 02/08/17 07:40 RDW 14.4 % (11.9-15.9) 02/08/17 07:40 Plt Count 225 K/MM3 (134-434) D 02/08/17 07:40 MPV 8.0 fl (7.5-11.1) 02/08/17 07:40 Sodium 142 mmol/L (136-145) 02/08/17 07:40 Potassium 4.5 mmol/L (3.5-5.1) 02/08/17 07:40 Chloride 108 mmol/L (98-107) H 02/08/17 07:40 Carbon Dioxide 28 mmol/L (21-32) 02/08/17 07:40 Anion Gap 6 (8-16) L 02/08/17 07:40 BUN 8 mg/dL (7-18) D 02/08/17 07:40 Creatinine 0.9 mg/dL (0.7-1.3) D 02/08/17 07:40 Creat Clearance w eGFR > 60 (>60) 02/08/17 07:40 Random Glucose 81 mg/dL (74-106) 02/08/17 07:40 Calcium 8.8 mg/dL (8.5-10.1) 02/08/17 07:40 Total Bilirubin 0.5 mg/dL (0.2-1.0) D 02/08/17 07:40 AST 20 U/L (15-37) D 02/08/17 07:40 ALT 25 U/L (12-78) D 02/08/17 07:40 Alkaline Phosphatase 54 U/L (45-117) D 02/08/17 07:40 Total Protein 6.9 g/dl (6.4-8.2) 02/08/17 07:40 Albumin 3.8 g/dl (3.4-5.0) 02/08/17 07:40 Urine Color Straw 02/07/17 Unknown Urine Appearance Clear 02/07/17 Unknown Urine pH 6.0 (5.0-8.0) 02/07/17 Unknown Ur Specific [place] <= 1.005 (1.005-1.025) 02/07/17 Unknown Urine Protein Negative (NEGATIVE) 02/07/17 Unknown Urine Glucose (UA) Negative (NEGATIVE) 02/07/17 Unknown Urine Ketones Negative (NEGATIVE) 02/07/17 Unknown Urine Blood Negative (NEGATIVE) 02/07/17 Unknown Urine Nitrite Negative (NEGATIVE) 02/07/17 Unknown Urine Bilirubin Negative (NEGATIVE) 02/07/17 Unknown Urine Urobilinogen Negative mg/dL (0.2-1.0) 02/07/17 Unknown Ur Leukocyte Esterase Negative (NEGATIVE) 02/07/17 Unknown RPR Titer Nonreactive (NONREACTIVE) 02/08/17 07:40 labs noted - Treatment Patient has Accepted a Rehab Referral to: Primary care doctor Denilson Refused referral to IOP - Medication Discharge Medications: Ambulatory Orders Albuterol Sulfate Inhaler - [Ventolin Hfa Inhaler -] 2 inh PO Q4H PRN 06/06/15 Levetiracetam [Keppra -] 1,000 mg PO BID 03/26/16 Venlafaxine HCl ER [Effexor Xr -] 75 mg PO HS #30 cap.er.24h 06/07/16 Venlafaxine HCl ER [Effexor Xr -] 150 mg PO DAILY #30 cap.er.24h 06/07/16 Metoclopramide HCl [Reglan -] 10 mg PO BID PRN 07/25/16 Mirtazapine [Remeron -] 15 mg PO HS 02/07/17 Venlafaxine HCl ER [Effexor Xr -] 150 mg PO DAILY #30 cap.er.24h 02/08/17 - Diagnosis (1) Alcohol dependence with uncomplicated withdrawal Status: Acute (2) Nicotine dependence Status: Acute Qualifiers: Nicotine product type: cigarettes Substance use status: uncomplicated Qualified Code(s): F17.210 - Nicotine dependence, cigarettes, uncomplicated (3) Seizure Status: Acute (4) Uncomplicated sedative, hypnotic or anxiolytic withdrawal Status: Acute (5) Asthma Status: Chronic Qualifiers: Asthma severity: mild intermittent Asthma complication type: uncomplicated Qualified Code(s): J45.20 - Mild intermittent asthma, uncomplicated (6) GERD (gastroesophageal reflux disease) Status: Chronic Qualifiers: Esophagitis presence: without esophagitis Qualified Code(s): K21.9 - Gastro-esophageal reflux disease without esophagitis (7) Drug-induced mood disorder Status: Acute (8) Insomnia Status: Acute (9) MDD (major depressive disorder) Status: Chronic - AMA Did Patient Leave Against Medical Advice: Yes (refused to complete detox,)
[2017-02-08] MEDS ORDERED: MIRTAZAPINE 15 MG TABLET (FP) PO SCH (22:00)
[2017-02-08] MEDS ORDERED: chlordiazePOXIDE HCL 25 MG CAPSULE PO SCH (23:00)
[2017-02-09] MEDS ORDERED: VENLAFAXINE HCL 150 MG E.R. CAPSULE PO SCH (10:00)
[2017-02-09] MEDS ORDERED: chlordiazePOXIDE 5 MG CAPSULE PO SCH (23:00)
[2017-02-10] MEDS ORDERED: chlordiazePOXIDE HCL 10 MG CAPSULE PO SCH (23:00)
== END 2017-02-08 17:05 | disposition left against medical advice (07) | DRG 770 ==
LOC: YASAS 13:55 → Y3N 18:42
PROVIDERS: ADMIT Internal Medicine; ATTEND Internal Medicine
PROC: HZ2ZZZZ Detoxification Services for Substance Abuse Treatment (ICD-10-PCS; principal; 2017-02-07)
DX: F13.230 Sedative, hypnotic or anxiolytic dependence with withdrawal, uncomplicated (principal); F10.230 Alcohol dependence with withdrawal, uncomplicated; F17.210 Nicotine dependence, cigarettes, uncomplicated; F19.24 Other psychoactive substance dependence with psychoactive substance-induced mood disorder; F33.9 Major depressive disorder, recurrent, unspecified; G40.909 Epilepsy, unspecified, not intractable, without status epilepticus; J45.20 Mild intermittent asthma, uncomplicated; K21.9 Gastro-esophageal reflux disease without esophagitis; G47.00 Insomnia, unspecified; Z87.898 Personal history of other specified conditions
CPT/HCPCS: 36415; 80053; 81003; 85027; 86593; 93005; 93010

== ENCOUNTER 2018-01-26 08:34 | Inpatient (IN) | payer OTHER ==
[2018-01-26 09:25] VITALS: BMI 18.2
--- NOTE | 2018-01-26 10:54 | HP ---
CIWA Score - CIWA Score Nausea/Vomitin Muscle Tremors: 3 Anxiety: 3 Agitation: 3 Paroxysmal Sweats: 2 Orientation: 0-Oriented Tacttile Disturbances: 1-Very Mild Itch/Numbness Auditory Disturbances: 1-Very Mild Visual Disturbances: 0-None Headache: 2-Mild CIWA-Ar Total Score: 18 Admission ROS BHS - HPI Chief Complaint: i need help to stop drinking alcohol Allergies/Adverse Reactions: Allergies Allergy/AdvReac Type Severity Reaction Status Date / Time diphenhydramine HCl Allergy Severe Difficulty Verified 01/26/18 10:00 [From Benadryl] Breathing History of Present Illness: this 42 years old male with alcohol dependence,seeking detox,seen in [facility] 01/25/18 for seizure,clear to come for detox, multiple admissions in the past but keep relapsing last rehab [facility] 01/10/18 to 01/11/18 not completed stated had family emergency asthma on albuterol inhaler anxiety and panic disorder longest period of sobriety 1 year Exam Limitations: No Limitations - Ebola screening Have you traveled outside of the country in the last 21 days: No Have you had contact with anyone from an Ebola affected area: No Have you been sick,other than usual withdrawal symptoms: No Do you have a fever: No - Review of Systems Constitutional: Loss of Appetite, Malaise, Night Sweats, Changes in sleep, Weakness, Unintentional Wgt. Loss EENT: reports: Tearing, Nose Congestion Respiratory: reports: No Symptoms reported, Other (asthma) Cardiac: reports: No Symptoms Reported GI: reports: Diarrhea, Nausea, Vomiting, Abdominal cramping : reports: No Symptoms Reported Musculoskeletal: reports: Back Pain, Muscle Pain Integumentary: reports: Dryness Neuro: reports: Headache, Tremors Endocrine: reports: No Symptoms Reported Hematology: reports: No Symptoms Reported Psychiatric: reports: No Sypmtoms Reported, Judgement Intact, Mood/Affect Appropiate, Orientated x3 (panic disorder), Anxious Patient History - Patient Medical History Hx Anemia: No Hx Asthma: Yes (on albuterol inhaler) Hx Chronic Obstructive Pulmonary Disease (COPD): No Hx Cancer: No Hx Cardiac Disorders: No Hx Congestive Heart Failure: No Hx Hypertension: No Hx Hypercholesterolemia: No Hx Pacemaker: No HX Cerebrovascular Accident: No Hx Seizures: Yes (alcohol related-last episode was in 01/25/2018) Hx Dementia: No Hx Diabetes: No Hx Gastrointestinal Disorders: No Hx Liver Disease: No Hx Genitourinary Disorders: No Hx Sexually Transmitted Disorders: No Hx Renal Disease (ESRD): No Hx Thyroid Disease: No Hx Human Immunodeficiency Virus (HIV): No (last tested 07/20 negative) Hx Hepatitis C: No Hx Depression: No Hx Suicide Attempt: No Hx Bipolar Disorder: No Hx Schizophrenia: No Other Medical History: anxiety and panic disorder,no suicidal,no homicidal - Patient Surgical History Past Surgical History: No Hx Neurologic Surgery: No Hx Cataract Extraction: No Hx Cardiac Surgery: No Hx Lung Surgery: No Hx Breast Surgery: No Hx Breast Biopsy: No Hx Abdominal Surgery: No Hx Appendectomy: No Hx Cholecystectomy: No Hx Genitourinary Surgery: No Hx Section: No Hx Orthopedic Surgery: No Anesthesia Reaction: No - PPD History Previous Implant?: Yes Documented Results: Positive w/proof Date: 01/12/18 Results: no reading PPD to be Administered?: Yes - Smoking Cessation Smoking history: Current every day smoker Have you smoked in the past 12 months: Yes Aproximately how many cigarettes per day: 40 Cigars Per Day: 0 Hx Chewing Tobacco Use: No Initiated information on smoking cessation: Yes 'Breaking Loose' booklet given: 01/26/18 - Substance & Tx. History Hx Alcohol Use: Yes Hx Substance Use: No Substance Use Type: Alcohol Hx Substance Use Treatment: Yes ([facility] last rehab 01/10/18 to 01/11/18) - Substances Abused Alcohol-beer Route: Oral Frequency: Daily Amount used: 8 (24 oz.) Age of first use: 16 Date of Last Use: 01/26/18 Family Disease History - Family Disease History Family Disease History: Diabetes: Grandparent, Heart Disease: Father ( [place]), [place]: Grandparent, Other: Father, Mother (alive, no med hx) Admission Physical Exam BHS - Vital Signs Vital Signs: Vital Signs - 24 hr 01/26/18 09:22 Temperature 96.7 F L Pulse Rate 82 Respiratory 18 Rate Blood Pressure 90/60 - Physical General Appearance: Yes: Moderate Distress, Tremorous, Irritable, Sweating, Anxious HEENTM: Yes: Normal ENT Inspection, MIGUEL A, Pharynx Normal Respiratory: Yes: Lungs Clear, Normal Breath Sounds, No Respiratory Distress Neck: Yes: Within Normal Limits, Supple, Trachea in good position Cardiology: Yes: Within Normal Limits, Regular Rhythm, Regular Rate, S1, S2 Abdominal: Yes: Within Normal Limits, Normal Bowel Sounds, Non Tender, Soft Genitourinary: Yes: Within Normal Limits Back: Yes: Muscle Spasm Extremities: Yes: Within Normal Limits, Normal Capillary Refill, Normal Inspection, Normal Range of Motion Integumentary: Yes: Within Normal Limits, Dry, Other (abrasion of right knee) Lymphatic: Yes: Within Normal Limits - Diagnostic (1) Alcohol dependence with uncomplicated withdrawal Current Visit: No Status: Acute (2) Alcohol-induced sleep disorder Current Visit: No Status: Acute (3) Insomnia Current Visit: No Status: Acute (4) Nicotine dependence Current Visit: No Status: Acute Qualifiers: Nicotine product type: cigarettes Substance use status: uncomplicated Qualified Code(s): F17.210 - Nicotine dependence, cigarettes, uncomplicated (5) Weight loss Current Visit: No Status: Acute (6) Asthma Current Visit: No Status: Chronic (7) Panic disorder Current Visit: No Status: Chronic (8) Alcohol withdrawal seizure Current Visit: No Status: Resolved Cleared for Admission [facility] - Detox or Rehab [facility] Level of Care: Medically Managed Detox Regimen/Protocol: Librium [facility] Breath Alcohol Content Breath Alcohol Content: 0.90 Urine Drug Screen - Results Drug Screen Negative: No Urine Drug Screen Results: BZO-Benzodiazepines
[2018-01-26] MEDS ORDERED: MAG HYDROX/AL HYDROX/SIMETH 30 ML UNIT-DOSE CUP PO PRN (11:12)
[2018-01-26] MEDS ORDERED: MENTHOL/PHENOL 1 EACH UD MM PRN (11:12)
[2018-01-26] MEDS ORDERED: guaiFENesin/D-METHORPHAN HB 10 ML UNIT-DOSE CUPS PO PRN (11:12)
[2018-01-26] MEDS ORDERED: MAGNESIUM HYDROX 2400MG/30ML ORAL SUSPENSION 30 ML CUP PO PRN (11:12)
[2018-01-26] MEDS ORDERED: LOPERAMIDE HCL 2 MG CAPSULE PO PRN (11:12)
[2018-01-26] MEDS ORDERED: MAGNESIUM CITRATE 300 ML BOTTLE PO PRN (11:12)
[2018-01-26] MEDS ORDERED: P-EPHED 60MG/TRIPROLIDI 2.5MG TABLET PO PRN (11:12)
[2018-01-26] MEDS ORDERED: ACETAMINOPHEN 325 MG TABLET (FP) PO PRN (11:12)
[2018-01-26] MEDS ORDERED: NICOTINE POLACRILEX 4 MG GUM BUC PRN (11:12)
[2018-01-26] MEDS ORDERED: IBUPROFEN 400 MG TABLET (FP) PO PRN (11:12)
[2018-01-26] MEDS ORDERED: ALBUTEROL SO4 8 GM HFA INHALER IH PRN (11:23)
[2018-01-26] MEDS ORDERED: COLLOIDAL OATMEAL 1 BAR EACH TP PRN (11:26)
[2018-01-26] MEDS: BACITRACIN 0.9 GM PACKET TP SCH ×2 (13:24→22:48)
[2018-01-26] MEDS: chlordiazePOXIDE HCL 25 MG CAPSULE PO PRN (13:25)
[2018-01-26] MEDS: NICOTINE 21 MG/24 HOURS TOPICAL PATCH TD SCH (13:33)
[2018-01-26] MEDS: chlordiazePOXIDE HCL 25 MG CAPSULE PO SCH ×2 (17:25→22:49)
[2018-01-26] MEDS ORDERED: THIAMINE HCL 100 MG TABLET (FP) PO SCH (22:00)
[2018-01-26] MEDS ORDERED: MELATONIN 5 MG TABLETS PO PRN (22:00)
[2018-01-26] MEDS: levETIRAcetam 500 MG TABLET (FP) PO SCH (22:49)
[2018-01-27] MEDS: chlordiazePOXIDE HCL 25 MG CAPSULE PO SCH ×2 (05:15→10:28)
[2018-01-27] MEDS ORDERED: PRENATAL VITAMINS W/ FOLIC ACID TABLET (FP) PO SCH (10:00)
[2018-01-27 10:14] LABS: HEMATOCRIT 40.9 % (35.4-49); HEMOGLOBIN 13.8 GM/dL (11.7-16.9); MCH 32.9 pg (25.7-33.7); MCHC 33.9 g/dl (32.0-35.9); MEAN CELL VOLUME 97.2 fl (80-96); MEAN PLT VOLUME 8.7 fl (7.5-11.1); PLATELET COUNT 187 K/MM3 (134-434); WHITE BLOOD COUNT 5.2 K/mm3 (4.0-10.0)
[2018-01-27 10:26] LABS: URINE APPEARANCE CLEAR; URINE BILIRUBIN NEGATIVE (<2.0 mg/dL); URINE COLOR LTYELLOW; URINE GLUCOSE (UA) NEGATIVE (NEGATIVE); URINE KETONE NEGATIVE (NEGATIVE); URINE LEUK ESTERASE NEGATIVE (NEGATIVE); URINE NITRITE NEGATIVE (NEGATIVE); URINE PROTEIN NEGATIVE (NEGATIVE); URINE UROBILINOGEN NEGATIVE mg/dL (0.2-1.0)
[2018-01-27] MEDS: levETIRAcetam 500 MG TABLET (FP) PO SCH (10:28)
[2018-01-27] MEDS: BACITRACIN 0.9 GM PACKET TP SCH (10:28)
[2018-01-27] MEDS: NICOTINE 21 MG/24 HOURS TOPICAL PATCH TD SCH (10:28)
[2018-01-27 10:41] LABS: CHLORIDE 103 mmol/L (98-107); SODIUM 139 mmol/L (136-145)
[2018-01-27 10:50] LABS: ALK PHOS 55 U/L (45-117); ANION GAP 9 (8-16); BILIRUBIN,TOTAL 0.3 mg/dL (0.2-1.0); BLOOD UREA NITROGEN 8 mg/dL (7-18); CALCIUM 8.5 mg/dL (8.5-10.1); CO2 27 mmol/L (21-32); CREATININE 1.1 mg/dL (0.7-1.3); GLUCOSE,RANDOM 96 mg/dL (74-106); SGOT/AST 52 U/L (15-37); SGPT/ALT 47 U/L (12-78)
--- NOTE | 2018-01-27 11:38 | CONSULT ---
[facility] Psychiatric Consult - Data Date of interview: 01/27/18 Admission source: [facility] Identifying data: This is one of multiple admisssions to [facility] for this 42 y /o male seeking detox treatment on for alcohol dependence.Patient is single without children,domiciled,unemployed and supported on SSI benefits. Substance Abuse History: Confirmed by patient in this interview.Smoking history : Current every day smoker. Have you smoked in the past 12 months: Yes. Aproximately how many cigarettes per day: 40. Cigars Per Day: 0. Hx Chewing Tobacco Use: No. Initiated information on smoking cessation: Yes. 'Breaking Loose' booklet given: 01/26/18. - Substance & Tx. History. Hx Alcohol Use: Yes. Hx Substance Use: No. Substance Use Type: Alcohol. Hx Substance Use Treatment: Yes ([facility] last rehab 01/10/18 to 01/11/18). - Substances Abused. * * Alcohol-beer. Route: Oral. Frequency: Daily. Amount used: 8 (24 oz.). Age of first use: 16. Date of Last Use: 01/26/18 Medical History: Bronchial asthma,GERD and substance-induced seizures. Psychiatric History: No reported history of psychiatric hospitalizations.Diagnosed with Anxiety Disorder and Panic Disorder.Mr Aquino sees a psychiatrist at the [facility] ([facility]Maintained on effexor 150 mg bid + remeron 30 mg po hs (self-report) .Patient denies history of suicide attempts. Physical/Sexual Abuse/Trauma History: Patient denies. Additional Comment: Urine Drug Screen Results: BZO-Benzodiazepines.Noted. Mental Status Exam - Mental Status Exam Alert and Oriented to: Time, Place, Person Cognitive Function: Good Patient Appearance: Well Groomed (small stature,thin habitus) Mood: Nervous, Withdrawn, Anxious Affect: Mood Congruent Patient Behavior: Fatigued, Cooperative Speech Pattern: Clear Voice Loudness: Normal Thought Process: Intact, Goal Oriented Thought Disorder: Not Present Hallucinations: Denies Suicidal Ideation: Denies Homicidal Ideation: Denies Insight/Judgement: Fair Sleep: Poorly, Difficulty falling asleep Appetite: Good Muscle strength/Tone: Normal Gait/Station: Normal Psychiatric Findings - Problem List ([place] 1, 2,3) (1) Alcohol dependence with uncomplicated withdrawal Current Visit: Yes Status: Acute (2) Nicotine dependence Current Visit: Yes Status: Acute Qualifiers: Nicotine product type: cigarettes Substance use status: uncomplicated Qualified Code(s): F17.210 - Nicotine dependence, cigarettes, uncomplicated (3) Drug-induced mood disorder Current Visit: Yes Status: Acute (4) Panic disorder Current Visit: Yes Status: Chronic Comment: As per existing records and self -report. (5) Insomnia Current Visit: Yes Status: Acute - Initial Treatment Plan Initial Treatment Plan: Psychoeducation.Sleep hygiene.Detoxification.Medications : effexor 75 mg po bid + remeron 15 mg po hs.Side effects/benefits of both drugs are discussed with the patient.Consent ( verbal) given.Observation.Medications are verified with pharmacist at [facility] # : most recent refills were issued on 01/25/18 for remeron 30 mg/hs + effexor 75 mg po bid (still for pick out hand).
[2018-01-27] MEDS ORDERED: VENLAFAXINE HCL 37.5 MG TABLET PO SCH (12:15)
[2018-01-27] MEDS: chlordiazePOXIDE HCL 25 MG CAPSULE PO PRN (12:50)
[2018-01-27 14:41] VITALS: BP 105/70; PULSE 82; TEMP 97.2
[2018-01-27] MEDS ORDERED: chlordiazePOXIDE HCL 25 MG CAPSULE PO SCH (17:00)
--- NOTE | 2018-01-27 18:22 | PN ---
[facility] CIWA - CIWA Score Nausea/Vomitin-No Nausea/No Vomiting Muscle Tremors: 2 Anxiety: 4-Mod. Anxious/Guarded Agitation: 4-Moderately Restless Paroxysmal Sweats: 3 Orientation: 2-Disoriented Date<2 days Tacttile Disturbances: 1-Very Mild Itch/Numbness Auditory Disturbances: 0-None Visual Disturbances: 1-Very Mild Sensitivity Headache: 0-None Present CIWA-Ar Total Score: 17 BHS Progress Note (SOAP) Subjective: Tremors, Anxious, Sweating. Objective: PATIENT A & O X 2 (UNCERTAIN ABOUT CURRENT DAY / DATE). PATIENT OBSERVED AMBULATING ON UNIT. NO ACUTE DISTRESS. 01/27/18 18:20 Laboratory Tests 01/26/18 01/27/18 01/27/18 12:00 05:30 05:30 WBC 5.2 RBC 4.20 Hgb 13.8 Hct 40.9 MCV 97.2 H MCH 32.9 MCHC 33.9 RDW 14.0 Plt Count 187 MPV 8.7 Sodium 139 Potassium 4.0 Chloride 103 Carbon Dioxide 27 Anion Gap 9 BUN 8 Creatinine 1.1 Creat Clearance w eGFR > 60 Random Glucose 96 D Calcium 8.5 Total Bilirubin 0.3 AST 52 H D ALT 47 D Alkaline Phosphatase 55 Total Protein 7.0 Albumin 4.0 Urine Color Urine Appearance Urine pH Ur Specific [place] Urine Protein Urine Glucose (UA) Urine Ketones Urine Blood Urine Nitrite Urine Bilirubin Urine Urobilinogen Ur Leukocyte Esterase RPR Titer HIV 1&2 Antibody Screen Negative HIV P24 Antigen Negative 01/27/18 01/27/18 05:30 05:50 WBC RBC Hgb Hct MCV MCH MCHC RDW Plt Count MPV Sodium Potassium Chloride Carbon Dioxide Anion Gap BUN Creatinine Creat Clearance w eGFR Random Glucose Calcium Total Bilirubin AST ALT Alkaline Phosphatase Total Protein Albumin Urine Color [place] Urine Appearance Clear Urine pH 6.0 Ur Specific [place] 1.005 Urine Protein Negative Urine Glucose (UA) Negative Urine Ketones Negative Urine Blood Negative Urine Nitrite Negative Urine Bilirubin Negative Urine Urobilinogen Negative Ur Leukocyte Esterase Negative RPR Titer Nonreactive HIV 1&2 Antibody Screen HIV P24 Antigen LABS NOTED. Assessment: 01/27/18 18:21 WITHDRAWAL SYMPTOMS. Plan: CONTINUE DETOX.
--- NOTE | 2018-01-27 18:25 | DS ---
[facility] Detox Discharge Summary Admission Date: 01/26/18 Discharge Date: 01/27/18 - History Present History: Alcohol Dependence Additional Comments: PATIENT DOES NOT WISH TO REMAIN TO COMPLETE DETOX REGIMEN. RISKS OF LEAVING DETOX UNIT AGAINST MEDICAL ADVICE AND PRIOR TO COMPLETION OF DETOX REGIMEN EXPLAINED TO PATIENT. PATIENT ADVISED TO GO IMMEDIATELY TO NEAREST ER SHOULD ANY INTOLERABLE DETOX SYMPTOMS DEVELOP AT ANY TIME. PATIENT LEFT DETOX UNIT IN STABLE MEDICAL CONDITION. Pertinent Past History: Asthma, Anxiety, History of Panic Disorder, Nicotine Dependence, History of Seizures (due to ETOH withdrawal), Insomnia, Weight Loss. - Physical Exam Results Vital Signs: Vital Signs Temperature 97.2 F L 01/27/18 14:39 Pulse Rate 82 01/27/18 14:39 Respiratory Rate 20 01/27/18 14:39 Blood Pressure 105/70 01/27/18 14:39 O2 Sat by Pulse Oximetry (%) Pertinent Admission Physical Exam Findings: WITHDRAWAL SYMPTOMS. Laboratory Tests 01/26/18 01/27/18 01/27/18 12:00 05:30 05:30 WBC 5.2 RBC 4.20 Hgb 13.8 Hct 40.9 MCV 97.2 H MCH 32.9 MCHC 33.9 RDW 14.0 Plt Count 187 MPV 8.7 Sodium 139 Potassium 4.0 Chloride 103 Carbon Dioxide 27 Anion Gap 9 BUN 8 Creatinine 1.1 Creat Clearance w eGFR > 60 Random Glucose 96 D Calcium 8.5 Total Bilirubin 0.3 AST 52 H D ALT 47 D Alkaline Phosphatase 55 Total Protein 7.0 Albumin 4.0 Urine Color Urine Appearance Urine pH Ur Specific [place] Urine Protein Urine Glucose (UA) Urine Ketones Urine Blood Urine Nitrite Urine Bilirubin Urine Urobilinogen Ur Leukocyte Esterase RPR Titer HIV 1&2 Antibody Screen Negative HIV P24 Antigen Negative 01/27/18 01/27/18 05:30 05:50 WBC RBC Hgb Hct MCV MCH MCHC RDW Plt Count MPV Sodium Potassium Chloride Carbon Dioxide Anion Gap BUN Creatinine Creat Clearance w eGFR Random Glucose Calcium Total Bilirubin AST ALT Alkaline Phosphatase Total Protein Albumin Urine Color Ltyellow Urine Appearance Clear Urine pH 6.0 Ur Specific [place] 1.005 Urine Protein Negative Urine Glucose (UA) Negative Urine Ketones Negative Urine Blood Negative Urine Nitrite Negative Urine Bilirubin Negative Urine Urobilinogen Negative Ur Leukocyte Esterase Negative RPR Titer Nonreactive HIV 1&2 Antibody Screen HIV P24 Antigen LABS NOTED. - Treatment Hospital Course: Detoxed Safely - Medication Discharge Medications: Ambulatory Orders Mirtazapine [Remeron -] 15 mg PO HS 02/07/17 Venlafaxine HCl ER [Effexor Xr -] 150 mg PO BID 01/10/18 Albuterol Sulfate Inhaler - [Ventolin HFA Inhaler -] 2 inh PO Q4H PRN #1 inhaler 01/11/18 levETIRAcetam [Keppra -] 1,000 mg PO BID #30 tablet 01/11/18 - Diagnosis (1) Alcohol dependence with uncomplicated withdrawal Status: Acute (2) Insomnia Status: Acute Qualifiers: Insomnia type: unspecified Qualified Code(s): G47.00 - Insomnia, unspecified (3) Nicotine dependence Status: Acute Qualifiers: Nicotine product type: cigarettes Substance use status: uncomplicated Qualified Code(s): F17.210 - Nicotine dependence, cigarettes, uncomplicated (4) Weight loss Status: Acute (5) Asthma Status: Chronic Qualifiers: Asthma severity: mild Asthma persistence: intermittent Asthma complication type: uncomplicated Qualified Code(s): J45.20 - Mild intermittent asthma, uncomplicated (6) Panic disorder Status: Chronic (7) Alcohol withdrawal seizure Status: Resolved Qualifiers: Complication of substance-induced condition: uncomplicated Qualified Code(s ): F10.230 - Alcohol dependence with withdrawal, uncomplicated (8) Alcohol-induced sleep disorder Status: Acute (9) Drug-induced mood disorder Status: Acute - AMA Did Patient Leave Against Medical Advice: Yes (PATIENT DID NOT WISH TO REMAIN TO COMPELTE DETOX REGIMEN.)
[2018-01-27] MEDS ORDERED: MIRTAZAPINE 30 MG TABLET (FP) PO SCH (22:00)
[2018-01-27] MEDS ORDERED: VENLAFAXINE HCL 75 MG TABLET PO SCH (22:00)
[2018-01-28] MEDS ORDERED: chlordiazePOXIDE 5 MG CAPSULE PO SCH (17:00)
--- NOTE | 2018-01-29 11:11 | EKG ---
Test Reason : Blood Pressure : / mmHG Vent. Rate : 101 BPM Atrial Rate : 101 BPM P-R Int : 134 ms QRS Dur : 082 ms QT Int : 318 ms P-R-T Axes : 059 066 060 degrees QTc Int : 412 ms SINUS TACHYCARDIA POSSIBLE LEFT ATRIAL ENLARGEMENT BORDERLINE ECG WHEN COMPARED WITH ECG OF 10-JAN-2018 23:02, NO SIGNIFICANT CHANGE WAS FOUND Confirmed by CHARO PRAKASH MD ([id number]) on 01/29/2018 11:10:24 AM Referred By: Confirmed By:CHARO PRAKASH MD
[2018-01-29] MEDS ORDERED: chlordiazePOXIDE HCL 10 MG CAPSULE PO SCH (17:00)
== END 2018-01-27 14:35 | disposition left against medical advice (07) | DRG 770 ==
LOC: YASAS 08:34 → Y3N 11:42
PROVIDERS: ADMIT Surgery; ATTEND Surgery
PROC: HZ2ZZZZ Detoxification Services for Substance Abuse Treatment (ICD-10-PCS; principal; 2018-01-26)
DX: F10.230 Alcohol dependence with withdrawal, uncomplicated (principal); F17.210 Nicotine dependence, cigarettes, uncomplicated; F10.282 Alcohol dependence with alcohol-induced sleep disorder; F10.24 Alcohol dependence with alcohol-induced mood disorder; F41.0 Panic disorder [episodic paroxysmal anxiety]; F41.9 Anxiety disorder, unspecified; G47.00 Insomnia, unspecified; G40.509 Epileptic seizures related to external causes, not intractable, without status epilepticus; J45.20 Mild intermittent asthma, uncomplicated; R63.4 Abnormal weight loss; Z68.1 Body mass index [BMI] 19.9 or less, adult
CPT/HCPCS: 36415; 80053; 81003; 85027; 86593; 87389; 93005; 93010

== ENCOUNTER 2018-04-27 09:27 | Inpatient (IN) | payer OTHER ==
[2018-04-27 10:24] VITALS: BMI 18.2
--- NOTE | 2018-04-27 12:21 | HP ---
CIWA Score - CIWA Score Nausea/Vomitin Muscle Tremors: 2 Anxiety: 2 Agitation: 2 Paroxysmal Sweats: 1-Minimal Palms Moist Orientation: 0-Oriented Tacttile Disturbances: 1-Very Mild Itch/Numbness Auditory Disturbances: 1-Very Mild Visual Disturbances: 0-None Headache: 2-Mild CIWA-Ar Total Score: 13 Admission ROS BHS - HPI Chief Complaint: i need help to stop drinking alcohol Allergies/Adverse Reactions: Allergies Allergy/AdvReac Type Severity Reaction Status Date / Time diphenhydramine HCl Allergy Severe Difficulty Verified 04/27/18 17:25 [From Benadryl] Breathing History of Present Illness: this 42 years old male with alcohol dependence,seeking detox,withdrawal symptom, last detox 12/18 twan completed seizure last 02/17 ,alcohol related [facility] weight loss neuropathy multiple admissions to detox,keep relapsing,non compliance history nicotine dependence no significant period of sobriety anxiety,depression,panic attack Exam Limitations: No Limitations - Ebola screening Have you traveled outside of the country in the last 21 days: No Have you had contact with anyone from an Ebola affected area: No Have you been sick,other than usual withdrawal symptoms: No Do you have a fever: No - Review of Systems Constitutional: Loss of Appetite, Malaise, Night Sweats, Changes in sleep, Weakness, Unintentional Wgt. Loss EENT: reports: Tearing, Nose Congestion Respiratory: reports: No Symptoms reported, Other (asthma) Cardiac: reports: Palpitations GI: reports: Nausea, Vomiting, Abdominal cramping : reports: No Symptoms Reported Musculoskeletal: reports: Back Pain, Muscle Pain Integumentary: reports: Dryness Neuro: reports: Headache, Tremors Endocrine: reports: No Symptoms Reported Hematology: reports: No Symptoms Reported Psychiatric: reports: No Sypmtoms Reported, Judgement Intact, Mood/Affect Appropiate, Orientated x3, Anxious, Depressed (panic attack) Patient History - Patient Medical History Hx Anemia: No Hx Asthma: Yes (on albuterol inhaler) Hx Chronic Obstructive Pulmonary Disease (COPD): No Hx Cancer: No Hx Cardiac Disorders: No Hx Congestive Heart Failure: No Hx Hypertension: No Hx Hypercholesterolemia: No Hx Pacemaker: No HX Cerebrovascular Accident: No Hx Seizures: Yes (alcohol related-last episode was in 01/25/2018) Hx Dementia: No Hx Diabetes: No Hx Gastrointestinal Disorders: No Hx Liver Disease: No Hx Genitourinary Disorders: No Hx Sexually Transmitted Disorders: No Hx Renal Disease (ESRD): No Hx Thyroid Disease: No Hx Human Immunodeficiency Virus (HIV): No (last tested 07/20 negative) Hx Hepatitis C: No Hx Depression: Yes Hx Suicide Attempt: No Hx Bipolar Disorder: No Hx Schizophrenia: No Other Medical History: anxiety,depression,panic attack - Patient Surgical History Past Surgical History: No Hx Neurologic Surgery: No Hx Cataract Extraction: No Hx Cardiac Surgery: No Hx Lung Surgery: No Hx Breast Surgery: No Hx Breast Biopsy: No Hx Abdominal Surgery: No Hx Appendectomy: No Hx Cholecystectomy: No Hx Genitourinary Surgery: No Hx Section: No Hx Orthopedic Surgery: No Anesthesia Reaction: No - PPD History Previous Implant?: Yes Documented Results: Negative w/o proof Date: 01/12/18 Results: no reading PPD to be Administered?: Yes - Smoking Cessation Smoking history: Current every day smoker Have you smoked in the past 12 months: Yes Aproximately how many cigarettes per day: 40 Cigars Per Day: 0 Hx Chewing Tobacco Use: No Initiated information on smoking cessation: Yes 'Breaking Loose' booklet given: 04/27/18 - Substance & Tx. History Hx Alcohol Use: Yes Hx Substance Use: No Substance Use Type: Alcohol Hx Substance Use Treatment: No - Substances Abused Alcohol-vodka/beer Route: Oral Frequency: Daily Amount used: 3 pts./3-6 pks. Age of first use: 16 Date of Last Use: 04/26/18 Family Disease History - Family Disease History Family Disease History: Diabetes: Grandparent, Heart Disease: Father ( [place]), [place]: Grandparent, Other: Father, Mother (alive, no med hx) Admission Physical Exam BHS - Vital Signs Vital Signs: Vital Signs - 24 hr 04/27/18 10:21 Temperature 98.3 F Pulse Rate 130 H Respiratory 17 Rate Blood Pressure 154/84 - Physical General Appearance: Yes: Moderate Distress, Tremorous, Irritable, Sweating, Anxious HEENTM: Yes: Normal ENT Inspection, MIGUEL A, Pharynx Normal Respiratory: Yes: Within Normal Limits, Lungs Clear, Normal Breath Sounds Neck: Yes: Within Normal Limits, Supple, Trachea in good position Breast: Yes: Within Normal Limits Cardiology: Yes: Tachycardia Abdominal: Yes: Within Normal Limits, Normal Bowel Sounds, Non Tender, Soft Genitourinary: Yes: Within Normal Limits Back: Yes: Muscle Spasm Musculoskeletal: Yes: Back pain, Muscle Pain Extremities: Yes: Normal Range of Motion, Tremors Neurological: Yes: vine pruner II-XII NML intact, Fully Oriented, Alert, Motor Strength 5/5 Integumentary: Yes: Dry Lymphatic: Yes: Tenderness - Diagnostic (1) Alcohol dependence with uncomplicated withdrawal Current Visit: Yes Status: Acute (2) Nicotine dependence Current Visit: Yes Status: Chronic Qualifiers: Nicotine product type: cigarettes Substance use status: uncomplicated Qualified Code(s): F17.210 - Nicotine dependence, cigarettes, uncomplicated (3) Weight loss Current Visit: No Status: Acute (4) Asthma Current Visit: No Status: Chronic Qualifiers: Asthma severity: mild Asthma persistence: intermittent Asthma complication type: uncomplicated Qualified Code(s): J45.20 - Mild intermittent asthma, uncomplicated (5) Panic disorder Current Visit: Yes Status: Chronic Comment: As per existing records and self -report. (6) Alcohol withdrawal seizure Current Visit: No Status: Resolved Qualifiers: Complication of substance-induced condition: uncomplicated Qualified Code(s ): F10.230 - Alcohol dependence with withdrawal, uncomplicated (7) Insomnia secondary to depression with anxiety Current Visit: Yes Status: Acute (8) Neuropathy Current Visit: Yes Status: Acute Cleared for Admission [facility] - Detox or Rehab [facility] Level of Care: Medically Managed Detox Regimen/Protocol: Librium [facility] Breath Alcohol Content Breath Alcohol Content: 0.048 Urine Drug Screen - Results Drug Screen Negative: No Urine Drug Screen Results: BZO-Benzodiazepines
[2018-04-27] MEDS ORDERED: P-EPHED 60MG/TRIPROLIDI 2.5MG TABLET PO PRN (12:51)
[2018-04-27] MEDS ORDERED: LOPERAMIDE HCL 2 MG CAPSULE PO PRN (12:51)
[2018-04-27] MEDS ORDERED: MAGNESIUM CITRATE 300 ML BOTTLE PO PRN (12:51)
[2018-04-27] MEDS ORDERED: MAGNESIUM HYDROX 2400MG/30ML ORAL SUSPENSION 30 ML CUP PO PRN (12:51)
[2018-04-27] MEDS ORDERED: IBUPROFEN 400 MG TABLET (FP) PO PRN (12:51)
[2018-04-27] MEDS ORDERED: NICOTINE POLACRILEX 2 MG GUM BUC PRN (12:51)
[2018-04-27] MEDS ORDERED: guaiFENesin/D-METHORPHAN HB 10 ML UNIT-DOSE CUPS PO PRN (12:51)
[2018-04-27] MEDS ORDERED: MENTHOL/PHENOL 1 EACH UD MM PRN (12:51)
[2018-04-27] MEDS ORDERED: ALBUTEROL SO4 8 GM HFA INHALER IH PRN (12:56)
[2018-04-27] MEDS: chlordiazePOXIDE HCL 25 MG CAPSULE PO PRN ×2 (13:16→19:19)
[2018-04-27] MEDS: NICOTINE 21 MG/24 HOURS TOPICAL PATCH TD SCH (13:16)
[2018-04-27] MEDS: ONDANSETRON *ODT* 4 MG TABLET SL PRN (15:18)
--- NOTE | 2018-04-27 16:48 | PN ---
[facility] Progress Note Note: Psychiatric nurse practitioner: As per history patient has reported adverse reactions to benadryl. He is currently requesting vistaril. He denies adverse effects from accepting vistaril in the past. He reports taking medications at home and as per chart medication has been ordered in rehab. Will order Vistaril 50mg q4h.
[2018-04-27] MEDS: COLLOIDAL OATMEAL 1 BAR EACH TP PRN (17:27)
[2018-04-27] MEDS: hydrOXYzine PAMOATE 50 MG CAPSULE (FP) PO PRN ×2 (17:27→22:23)
[2018-04-27] MEDS: chlordiazePOXIDE HCL 25 MG CAPSULE PO SCH ×2 (17:27→22:20)
--- NOTE | 2018-04-27 17:53 | CONSULT ---
[facility] Psychiatric Consult - Data Date of interview: 04/27/18 Admission source: [facility] Identifying data: Patient is a 42 year old single male, without children, unemployed, and is currently residing with mother. This is one of multiple admissions for patient. Patient admitted to for alcohol dependence. Substance Abuse History: Smoking Cessation. Smoking history: Current every day smoker. Have you smoked in the past 12 months: Yes. Aproximately how many cigarettes per day: 40. Cigars Per Day: 0. Hx Chewing Tobacco Use: No. Initiated information on smoking cessation: Yes. 'Breaking Loose' booklet given : 04/27/18. - Substance & Tx. History. Hx Alcohol Use: Yes. Hx Substance Use : No. Substance Use Type: Alcohol. Hx Substance Use Treatment: No. - Substances Abused. Alcohol-vodka/beer. Route: Oral. Frequency: Daily. Amount used: 3 pts./3-6 pks. Age of first use: 16. Date of Last Use: 04/26/18 Medical History: Asthma, Seizures alcohol related-last episode was in 01/25/2018 Psychiatric History: Patient denies h/o psychiatric hospitalizations. Outpatient psychiatric services is provided at the [facility] ([facility] Patient is currently prescribed effexor 75mg BID + remeron 15mg qhs + vistaril 50mg TID. Diagnosis of anxiety and panic disorder. Patient denies h/o suicide attempt. Physical/Sexual Abuse/Trauma History: denies. Mental Status Exam - Mental Status Exam Alert and Oriented to: Time, Place, Person Cognitive Function: Good Patient Appearance: Well Groomed Mood: Euthymic Affect: Appropriate Patient Behavior: Appropriate, Cooperative Speech Pattern: Clear, Appropriate Voice Loudness: Normal Thought Process: Intact, Goal Oriented Hallucinations: Denies Suicidal Ideation: Denies Homicidal Ideation: Denies Insight/Judgement: Poor Sleep: Poorly Appetite: Fair Muscle strength/Tone: Normal Gait/Station: Normal Psychiatric Findings - Problem List (Sims 1, 2,3) (1) Alcohol dependence with uncomplicated withdrawal Current Visit: Yes Status: Acute (2) Nicotine dependence Current Visit: Yes Status: Chronic Qualifiers: Nicotine product type: cigarettes Substance use status: uncomplicated Qualified Code(s): F17.210 - Nicotine dependence, cigarettes, uncomplicated (3) Anxiety disorder Current Visit: Yes Status: Chronic Qualifiers: Anxiety disorder type: generalized anxiety disorder Qualified Code(s): F41.1 - Generalized anxiety disorder (4) Panic disorder Current Visit: Yes Status: Chronic Comment: As per existing records and self -report. (5) Insomnia Current Visit: Yes Status: Acute Qualifiers: Insomnia type: unspecified Qualified Code(s): G47.00 - Insomnia, unspecified - Initial Treatment Plan Initial Treatment Plan: Psychoeducation provided. Detoxification in progress. Will order Effexor 75mg BID (1000, 1800) + Mirtzapine 15mg qhs + Vistaril 50mg q4h. Benefits and side effects discussed. Verbal consent given.
[2018-04-27] MEDS: MAG HYDROX/AL HYDROX/SIMETH 30 ML UNIT-DOSE CUP PO PRN (18:25)
[2018-04-27] MEDS: VENLAFAXINE HCL 75 MG TABLET PO SCH (19:18)
[2018-04-27 19:29] LABS: URINE APPEARANCE CLEAR; URINE BILIRUBIN NEGATIVE (<2.0 mg/dL); URINE COLOR STRAW; URINE GLUCOSE (UA) NEGATIVE (NEGATIVE); URINE KETONE TRACE (NEGATIVE); URINE LEUK ESTERASE NEGATIVE (NEGATIVE); URINE NITRITE NEGATIVE (NEGATIVE); URINE PROTEIN NEGATIVE (NEGATIVE); URINE UROBILINOGEN NEGATIVE mg/dL (0.2-1.0)
[2018-04-27] MEDS: IBUPROFEN 400 MG TABLET (FP) PO PRN (20:14)
[2018-04-27] MEDS ORDERED: MELATONIN 5 MG TABLETS PO PRN (22:00)
[2018-04-27] MEDS ORDERED: VENLAFAXINE HCL 150 MG E.R. CAPSULE PO SCH (22:00)
[2018-04-27] MEDS: MIRTAZAPINE 15 MG TABLET (FP) PO SCH (22:20)
[2018-04-27] MEDS: THIAMINE HCL 100 MG TABLET (FP) PO SCH (22:20)
[2018-04-27] MEDS: levETIRAcetam 500 MG TABLET (FP) PO SCH (22:20)
[2018-04-28] MEDS: chlordiazePOXIDE HCL 25 MG CAPSULE PO SCH ×4 (05:25→22:16)
[2018-04-28] MEDS: chlordiazePOXIDE HCL 25 MG CAPSULE PO PRN (08:39)
[2018-04-28] MEDS: PRENATAL VITAMINS W/ FOLIC ACID TABLET (FP) PO SCH (10:13)
[2018-04-28] MEDS: NICOTINE 21 MG/24 HOURS TOPICAL PATCH TD SCH (10:14)
[2018-04-28] MEDS: levETIRAcetam 500 MG TABLET (FP) PO SCH ×2 (10:14→22:16)
[2018-04-28] MEDS: VENLAFAXINE HCL 75 MG TABLET PO SCH ×2 (10:14→17:26)
[2018-04-28] MEDS: IBUPROFEN 400 MG TABLET (FP) PO PRN ×2 (10:15→17:25)
[2018-04-28 10:19] LABS: HEMATOCRIT 33.3 % (35.4-49); HEMOGLOBIN 11.4 GM/dL (11.7-16.9); MCH 29.8 pg (25.7-33.7); MCHC 34.1 g/dl (32.0-35.9); MEAN CELL VOLUME 87.2 fl (80-96); MEAN PLT VOLUME 7.6 fl (7.5-11.1); PLATELET COUNT 424 K/MM3 (134-434); RBC 3.82 M/mm3 (4.00-5.60); RDW 12.7 % (11.9-15.9); WHITE BLOOD COUNT 9.5 K/mm3 (4.0-10.0)
[2018-04-28 10:54] LABS: ALBUMIN 3.9 g/dl (3.4-5.0); ALK PHOS 64 U/L (45-117); ANION GAP 13 MMOL/L (8-16); BILIRUBIN,TOTAL 0.6 mg/dL (0.2-1); BLOOD UREA NITROGEN 13 mg/dL (7-18); CALCIUM 8.9 mg/dL (8.5-10.1); CHLORIDE 98 mmol/L (98-107); CO2 25 mmol/L (21-32); CREATININE 0.9 mg/dL (0.55-1.3); GLUCOSE,RANDOM 100 mg/dL (74-106); POTASSIUM 3.9 mmol/L (3.5-5.1); SGOT/AST 28 U/L (15-37); SGPT/ALT 30 U/L (13-61); SODIUM 136 mmol/L (136-145)
[2018-04-28] MEDS: hydrOXYzine PAMOATE 50 MG CAPSULE (FP) PO PRN ×2 (14:21→19:39)
--- NOTE | 2018-04-28 15:03 | EKG ---
Test Reason : Blood Pressure : / mmHG Vent. Rate : 125 BPM Atrial Rate : 125 BPM P-R Int : 132 ms QRS Dur : 086 ms QT Int : 310 ms P-R-T Axes : 074 075 061 degrees QTc Int : 447 ms SINUS TACHYCARDIA OTHERWISE NORMAL ECG WHEN COMPARED WITH ECG OF 26-JAN-2018 12:43, NO SIGNIFICANT CHANGE WAS FOUND Confirmed by MD Griffith Edward ([id number]) on 04/28/2018 3:03:19 PM Referred By: Confirmed By:Sergio Griffith MD
--- NOTE | 2018-04-28 16:38 | PN ---
[facility] CIWA - CIWA Score Nausea/Vomitin-No Nausea/No Vomiting Muscle Tremors: 2 Anxiety: 3 Agitation: 3 Paroxysmal Sweats: 2 Orientation: 0-Oriented Tacttile Disturbances: 1-Very Mild Itch/Numbness Auditory Disturbances: 0-None Visual Disturbances: 1-Very Mild Sensitivity Headache: 1-Very Mild CIWA-Ar Total Score: 13 S Progress Note (SOAP) Subjective: anxious, interrupted sleep, body aches Objective: 04/28/18 16:37 Vital Signs Temperature 96.7 F L 04/28/18 13:54 Pulse Rate 121 H 04/28/18 13:54 Respiratory Rate 18 04/28/18 13:54 Blood Pressure 129/9 L 04/28/18 13:54 O2 Sat by Pulse Oximetry (%) Laboratory Last Values WBC 9.5 K/mm3 (4.0-10.0) 04/28/18 05:40 RBC 3.82 M/mm3 (4.00-5.60) L 04/28/18 05:40 Hgb 11.4 GM/dL (11.7-16.9) L 04/28/18 05:40 Hct 33.3 % (35.4-49) L D 04/28/18 05:40 MCV 87.2 fl (80-96) 04/28/18 05:40 MCH 29.8 pg (25.7-33.7) 04/28/18 05:40 MCHC 34.1 g/dl (32.0-35.9) 04/28/18 05:40 RDW 12.7 % (11.9-15.9) 04/28/18 05:40 Plt Count 424 K/MM3 (134-434) D 04/28/18 05:40 MPV 7.6 fl (7.5-11.1) D 04/28/18 05:40 Sodium 136 mmol/L (136-145) 04/28/18 05:40 Potassium 3.9 mmol/L (3.5-5.1) 04/28/18 05:40 Chloride 98 mmol/L (98-107) 04/28/18 05:40 Carbon Dioxide 25 mmol/L (21-32) 04/28/18 05:40 Anion Gap 13 MMOL/L (8-16) 04/28/18 05:40 BUN 13 mg/dL (7-18) 04/28/18 05:40 Creatinine 0.9 mg/dL (0.55-1.3) 04/28/18 05:40 Creat Clearance w eGFR > 60 (>60) 04/28/18 05:40 Random Glucose 100 mg/dL (74-106) 04/28/18 05:40 Calcium 8.9 mg/dL (8.5-10.1) 04/28/18 05:40 Total Bilirubin 0.6 mg/dL (0.2-1) 04/28/18 05:40 AST 28 U/L (15-37) 04/28/18 05:40 ALT 30 U/L (13-61) 04/28/18 05:40 Alkaline Phosphatase 64 U/L (45-117) 04/28/18 05:40 Total Protein 7.0 g/dl (6.4-8.2) 04/28/18 05:40 Albumin 3.9 g/dl (3.4-5.0) 04/28/18 05:40 Urine Color Straw 04/27/18 16:27 Urine Appearance Clear 04/27/18 16:27 Urine pH 7.0 (5.0-8.0) 04/27/18 16:27 Ur Specific [place] 1.008 (1.010-1.035) L 04/27/18 16:27 Urine Protein Negative (NEGATIVE) 04/27/18 16:27 Urine Glucose (UA) Negative (NEGATIVE) 04/27/18 16:27 Urine Ketones Trace (NEGATIVE) H 04/27/18 16:27 Urine Blood Negative (NEGATIVE) 04/27/18 16:27 Urine Nitrite Negative (NEGATIVE) 04/27/18 16:27 Urine Bilirubin Negative (<2.0 mg/dL) 04/27/18 16:27 Urine Urobilinogen Negative mg/dL (0.2-1.0) 04/27/18 16:27 Ur Leukocyte Esterase Negative (NEGATIVE) 04/27/18 16:27 RPR Titer Nonreactive (NONREACTIVE) 04/28/18 05:40 Aox3 no adventitious breath sounds full ROM Assessment: 04/28/18 16:37 withdrawal sx Plan: increase PO fluids continue detox continue to monitor
[2018-04-28] MEDS: ONDANSETRON *ODT* 4 MG TABLET SL PRN (17:25)
[2018-04-28] MEDS: THIAMINE HCL 100 MG TABLET (FP) PO SCH (22:15)
[2018-04-28] MEDS: MIRTAZAPINE 15 MG TABLET (FP) PO SCH (22:16)
[2018-04-29] MEDS: IBUPROFEN 400 MG TABLET (FP) PO PRN ×3 (02:58→17:25)
[2018-04-29] MEDS: chlordiazePOXIDE HCL 25 MG CAPSULE PO SCH ×2 (05:40→10:09)
[2018-04-29] MEDS: VENLAFAXINE HCL 75 MG TABLET PO SCH ×2 (10:08→17:24)
[2018-04-29] MEDS: PRENATAL VITAMINS W/ FOLIC ACID TABLET (FP) PO SCH (10:08)
[2018-04-29] MEDS: levETIRAcetam 500 MG TABLET (FP) PO SCH ×2 (10:08→22:16)
[2018-04-29] MEDS: NICOTINE 21 MG/24 HOURS TOPICAL PATCH TD SCH (10:12)
[2018-04-29] MEDS: hydrOXYzine PAMOATE 50 MG CAPSULE (FP) PO PRN ×2 (12:14→17:27)
[2018-04-29] MEDS: ONDANSETRON *ODT* 4 MG TABLET SL PRN (12:14)
--- NOTE | 2018-04-29 13:20 | PN ---
S CIWA - CIWA Score Nausea/Vomitin Muscle Tremors: 3 Anxiety: 3 Agitation: 3 Paroxysmal Sweats: 3 Orientation: 0-Oriented Tacttile Disturbances: 0-None Auditory Disturbances: 0-None Visual Disturbances: 0-None Headache: 0-None Present CIWA-Ar Total Score: 14 BHS Progress Note (SOAP) Subjective: Sweating, interrupted sleep Objective: 04/29/18 13:19 Last Vital Signs Temp Pulse Resp BP Pulse Ox 96.5 F L 99 H 16 137/87 04/29/18 09:43 04/29/18 09:43 04/29/18 09:43 04/29/18 09:43 Laboratory Tests 04/27/18 04/28/18 04/28/18 16:27 05:40 05:40 WBC 9.5 RBC 3.82 L Hgb 11.4 L Hct 33.3 L D MCV 87.2 MCH 29.8 MCHC 34.1 RDW 12.7 Plt Count 424 D MPV 7.6 D Sodium 136 Potassium 3.9 Chloride 98 Carbon Dioxide 25 Anion Gap 13 BUN 13 Creatinine 0.9 Creat Clearance w eGFR > 60 Random Glucose 100 Calcium 8.9 Total Bilirubin 0.6 AST 28 ALT 30 Alkaline Phosphatase 64 Total Protein 7.0 Albumin 3.9 Urine Color Straw Urine Appearance Clear Urine pH 7.0 Ur Specific [place] 1.008 L Urine Protein Negative Urine Glucose (UA) Negative Urine Ketones Trace H Urine Blood Negative Urine Nitrite Negative Urine Bilirubin Negative Urine Urobilinogen Negative Ur Leukocyte Esterase Negative RPR Titer 04/28/18 05:40 WBC RBC Hgb Hct MCV MCH MCHC RDW Plt Count MPV Sodium Potassium Chloride Carbon Dioxide Anion Gap BUN Creatinine Creat Clearance w eGFR Random Glucose Calcium Total Bilirubin AST ALT Alkaline Phosphatase Total Protein Albumin Urine Color Urine Appearance Urine pH Ur Specific [place] Urine Protein Urine Glucose (UA) Urine Ketones Urine Blood Urine Nitrite Urine Bilirubin Urine Urobilinogen Ur Leukocyte Esterase RPR Titer Nonreactive Labs reviewed Assessment: 04/29/18 13:20 Withdrawal symptoms Plan: Continue detox Encouraged PO water intake
[2018-04-29] MEDS: COLLOIDAL OATMEAL 1 BAR EACH TP PRN (14:39)
[2018-04-29] MEDS: ACETAMINOPHEN 325 MG TABLET (FP) PO PRN ×2 (15:42→22:17)
[2018-04-29] MEDS: chlordiazePOXIDE 5 MG CAPSULE PO SCH ×2 (17:24→22:16)
[2018-04-29] MEDS: MIRTAZAPINE 15 MG TABLET (FP) PO SCH (22:16)
[2018-04-29] MEDS: THIAMINE HCL 100 MG TABLET (FP) PO SCH (22:16)
[2018-04-29] MEDS: CYCLOBENZAPRINE HCL 5 MG TABLET PO PRN (23:52)
[2018-04-30] MEDS: chlordiazePOXIDE 5 MG CAPSULE PO SCH ×2 (05:34→10:16)
[2018-04-30] MEDS: NICOTINE 21 MG/24 HOURS TOPICAL PATCH TD SCH (10:10)
[2018-04-30] MEDS: VENLAFAXINE HCL 75 MG TABLET PO SCH ×2 (10:11→17:30)
[2018-04-30] MEDS: levETIRAcetam 500 MG TABLET (FP) PO SCH ×2 (10:11→22:16)
[2018-04-30] MEDS: PRENATAL VITAMINS W/ FOLIC ACID TABLET (FP) PO SCH (10:11)
[2018-04-30] MEDS: IBUPROFEN 400 MG TABLET (FP) PO PRN ×2 (10:14→17:31)
[2018-04-30] MEDS: hydrOXYzine PAMOATE 50 MG CAPSULE (FP) PO PRN ×2 (10:15→17:34)
[2018-04-30] MEDS: CYCLOBENZAPRINE HCL 5 MG TABLET PO PRN ×2 (13:48→22:16)
[2018-04-30] MEDS: ACETAMINOPHEN 325 MG TABLET (FP) PO PRN ×2 (15:47→23:18)
--- NOTE | 2018-04-30 15:48 | PN ---
BHS Progress Note (SOAP) Subjective: sweats interrupted sleep Objective: 04/30/18 15:47 Ambulates with a limp No acute distress noted Vital Signs Temperature 97.5 F L 04/30/18 13:08 Pulse Rate 102 H 04/30/18 13:08 Respiratory Rate 20 04/30/18 13:08 Blood Pressure 125/77 04/30/18 13:08 O2 Sat by Pulse Oximetry (%) Assessment: 04/30/18 15:48 withdrawal sx Plan: continuie detox
[2018-04-30] MEDS: chlordiazePOXIDE HCL 10 MG CAPSULE PO SCH ×2 (17:29→22:16)
[2018-04-30] MEDS: MAG HYDROX/AL HYDROX/SIMETH 30 ML UNIT-DOSE CUP PO PRN (20:52)
[2018-04-30] MEDS: MIRTAZAPINE 15 MG TABLET (FP) PO SCH (22:17)
[2018-04-30] MEDS: THIAMINE HCL 100 MG TABLET (FP) PO SCH (22:17)
[2018-05-01] MEDS: IBUPROFEN 400 MG TABLET (FP) PO PRN ×3 (05:09→23:08)
[2018-05-01] MEDS: chlordiazePOXIDE HCL 10 MG CAPSULE PO SCH ×2 (06:03→12:01)
[2018-05-01] MEDS: PRENATAL VITAMINS W/ FOLIC ACID TABLET (FP) PO SCH (10:17)
[2018-05-01] MEDS: levETIRAcetam 500 MG TABLET (FP) PO SCH ×2 (10:17→22:14)
[2018-05-01] MEDS: ACETAMINOPHEN 325 MG TABLET (FP) PO PRN ×2 (10:17→17:21)
[2018-05-01] MEDS: NICOTINE 21 MG/24 HOURS TOPICAL PATCH TD SCH (10:17)
[2018-05-01] MEDS: VENLAFAXINE HCL 75 MG TABLET PO SCH ×2 (10:17→17:20)
--- NOTE | 2018-05-01 10:42 | DS ---
[facility] Detox Discharge Summary Admission Date: 04/27/18 Discharge Date: 05/01/18 - History Present History: Alcohol Dependence - Physical Exam Results Vital Signs: Vital Signs Temperature 98.3 F 05/01/18 09:34 Pulse Rate 87 05/01/18 09:34 Respiratory Rate 18 05/01/18 09:34 Blood Pressure 137/77 05/01/18 09:34 O2 Sat by Pulse Oximetry (%) Pertinent Admission Physical Exam Findings: PATIENT COMPLETED DETOX REGIMEN WITHOUT ADVERSE EVENT. PATIENT CLINICALLY STABLE UPON D/C AND DENIES SI/HI. PATIENT ALERT AND ORIENTED X 3, SKIN WARM AND DRY, EXT FULL ROM, AMB AD CHRIS. PATIENT ENCOURAGED TO ATTEND AA TO PREVENT RELAPSE, FOLLOW UP WITH PCP WITHIN ONE WEEK OF D/C AND TO SEEK MEDICAL ATTENTION IF WITHDRAWAL SX OCCUR. D/C INSTRUCTIONS GIVEN TO PATIENT AND PROVIDED BY STAFF. - Treatment Hospital Course: Detox Protocol Followed, Detoxed Safely, Responded well, Discharged Condition Good - Medication Discharge Medications: Ambulatory Orders Mirtazapine [Remeron -] 15 mg PO HS 02/07/17 Venlafaxine HCl ER [Effexor Xr -] 150 mg PO BID 01/10/18 Albuterol Sulfate Inhaler - [Ventolin HFA Inhaler -] 2 inh PO Q4H PRN #1 inhaler 01/11/18 levETIRAcetam [Keppra -] 1,000 mg PO BID #30 tablet 01/11/18 Hydroxyzine HCl 50 mg PO TID 04/27/18 Ibuprofen [Ibu] 800 mg PO TID PRN 04/27/18 Venlafaxine HCl [Effexor -] 75 mg PO BID@1000,1800 04/27/18 - AMA Did Patient Leave Against Medical Advice: No
[2018-05-01] MEDS: CYCLOBENZAPRINE HCL 5 MG TABLET PO PRN ×2 (12:01→22:14)
[2018-05-01] MEDS: hydrOXYzine PAMOATE 50 MG CAPSULE (FP) PO PRN ×2 (15:11→22:16)
[2018-05-01] MEDS: THIAMINE HCL 100 MG TABLET (FP) PO SCH (22:14)
[2018-05-01] MEDS: MIRTAZAPINE 15 MG TABLET (FP) PO SCH (22:14)
[2018-05-02] MEDS: IBUPROFEN 400 MG TABLET (FP) PO PRN (08:49)
[2018-05-02 09:11] VITALS: BP 136/82; PULSE 89; TEMP 97.3
[2018-05-02] MEDS: levETIRAcetam 500 MG TABLET (FP) PO SCH (10:21)
[2018-05-02] MEDS: NICOTINE 21 MG/24 HOURS TOPICAL PATCH TD SCH (10:21)
[2018-05-02] MEDS: VENLAFAXINE HCL 75 MG TABLET PO SCH (10:21)
[2018-05-02] MEDS: PRENATAL VITAMINS W/ FOLIC ACID TABLET (FP) PO SCH (10:21)
--- NOTE | 2018-05-02 11:42 | DS ---
[facility] Detox Discharge Summary Admission Date: 04/27/18 Discharge Date: 05/02/18 - History Present History: Alcohol Dependence Additional Comments: Patient discharged today and has rehab bed at [facility] for today as per his counselor, Mr. Wick. Patient initially wanted to leave tomorrow as he was told that he would have a bed at [facility] tomorrow but a bed became available today and patient agreed to leave today. He is without any complaints. - Physical Exam Results Vital Signs: Vital Signs Temperature 97.3 F L 05/02/18 09:10 Pulse Rate 89 05/02/18 09:10 Respiratory Rate 18 05/02/18 09:10 Blood Pressure 136/82 05/02/18 09:10 O2 Sat by Pulse Oximetry (%) Pertinent Admission Physical Exam Findings: Withdrawal symptoms Laboratory Tests 04/27/18 04/28/18 04/28/18 16:27 05:40 05:40 WBC 9.5 RBC 3.82 L Hgb 11.4 L Hct 33.3 L D MCV 87.2 MCH 29.8 MCHC 34.1 RDW 12.7 Plt Count 424 D MPV 7.6 D Sodium 136 Potassium 3.9 Chloride 98 Carbon Dioxide 25 Anion Gap 13 BUN 13 Creatinine 0.9 Creat Clearance w eGFR > 60 Random Glucose 100 Calcium 8.9 Total Bilirubin 0.6 AST 28 ALT 30 Alkaline Phosphatase 64 Total Protein 7.0 Albumin 3.9 Urine Color Straw Urine Appearance Clear Urine pH 7.0 Ur Specific [place] 1.008 L Urine Protein Negative Urine Glucose (UA) Negative Urine Ketones Trace H Urine Blood Negative Urine Nitrite Negative Urine Bilirubin Negative Urine Urobilinogen Negative Ur Leukocyte Esterase Negative RPR Titer 04/28/18 05:40 WBC RBC Hgb Hct MCV MCH MCHC RDW Plt Count MPV Sodium Potassium Chloride Carbon Dioxide Anion Gap BUN Creatinine Creat Clearance w eGFR Random Glucose Calcium Total Bilirubin AST ALT Alkaline Phosphatase Total Protein Albumin Urine Color Urine Appearance Urine pH Ur Specific [place] Urine Protein Urine Glucose (UA) Urine Ketones Urine Blood Urine Nitrite Urine Bilirubin Urine Urobilinogen Ur Leukocyte Esterase RPR Titer Nonreactive Labs reviewed - Treatment Hospital Course: Detox Protocol Followed, Detoxed Safely, Responded well, Discharged Condition Good, Rehab Referral Accepted - Medication Discharge Medications: Ambulatory Orders Mirtazapine [Remeron -] 15 mg PO HS 02/07/17 Venlafaxine HCl ER [Effexor Xr -] 150 mg PO BID 01/10/18 Hydroxyzine HCl 50 mg PO TID 04/27/18 Ibuprofen [Ibu] 800 mg PO TID PRN 04/27/18 Venlafaxine HCl [Effexor -] 75 mg PO BID@1000,1800 04/27/18 Albuterol Sulfate Inhaler - [Ventolin HFA Inhaler -] 2 inh PO Q4H PRN #1 inhaler 05/01/18 levETIRAcetam [Keppra -] 1,000 mg PO BID #30 tablet 05/01/18 - Diagnosis (1) Alcohol dependence with uncomplicated withdrawal Status: Resolved (2) Insomnia secondary to depression with anxiety Status: Acute (3) Neuropathy Status: Chronic (4) Nicotine dependence Status: Chronic Qualifiers: Nicotine product type: cigarettes Substance use status: uncomplicated Qualified Code(s): F17.210 - Nicotine dependence, cigarettes, uncomplicated (5) Panic disorder Status: Chronic (6) Asthma Status: Chronic Qualifiers: Asthma severity: mild Asthma persistence: intermittent Asthma complication type: uncomplicated Qualified Code(s): J45.20 - Mild intermittent asthma, uncomplicated - AMA Did Patient Leave Against Medical Advice: No (F/U with your PCP after completion of rehab at [facility])
== END 2018-05-02 10:36 | disposition home or self-care (01) | DRG 775 ==
LOC: YASAS 09:27 → Y3N 12:30
PROC: HZ2ZZZZ Detoxification Services for Substance Abuse Treatment (ICD-10-PCS; principal; 2018-04-27)
DX: F10.230 Alcohol dependence with withdrawal, uncomplicated (principal); F13.230 Sedative, hypnotic or anxiolytic dependence with withdrawal, uncomplicated; F17.210 Nicotine dependence, cigarettes, uncomplicated; F51.05 Insomnia due to other mental disorder; F41.0 Panic disorder [episodic paroxysmal anxiety]; F41.1 Generalized anxiety disorder; F19.282 Other psychoactive substance dependence with psychoactive substance-induced sleep disorder; G62.9 Polyneuropathy, unspecified; J45.20 Mild intermittent asthma, uncomplicated; K21.9 Gastro-esophageal reflux disease without esophagitis; R00.0 Tachycardia, unspecified; Z86.69 Personal history of other diseases of the nervous system and sense organs; Z87.898 Personal history of other specified conditions
CPT/HCPCS: 36415; 80053; 81003; 85027; 86593; 93005; 93010; Q0162

== ENCOUNTER 2018-06-19 10:23 | Inpatient (IN) | payer OTHER ==
[2018-06-19 10:52] VITALS: BMI 19.8
--- NOTE | 2018-06-19 12:58 | HP ---
CIWA Score Nausea/Vomitin-No Nausea/No Vomiting Muscle Tremors: 4-Moderate,w/Arms Extend Anxiety: 4-Mod. Anxious/Guarded Agitation: 4-Moderately Restless Paroxysmal Sweats: 3 Orientation: 0-Oriented Tacttile Disturbances: 0-None Auditory Disturbances: 0-None Visual Disturbances: 0-None Headache: 2-Mild CIWA-Ar Total Score: 17 - Admission Criteria OASAS Guidelines: Admission for Medically Managed Detox: Requires at least one of the followin. CIWA greater than 12 2. Seizures within the past 24 hours 3. Delirium tremens within the past 24 hours 4. Hallucinations within the past 24 hours 5. Acute intervention needed for co occurring medical disorder 6. Acute intervention needed for co occurring psychiatric disorder 7. Severe withdrawal that cannot be handled at a lower level of care (continued vomiting, continued diarrhea, abnormal vital signs) requiring intravenous medication and/or fluids 8. Admission ROS [facility] Chief Complaint: I need to be here for detox after being at [facility] overnight for alcohol withdrawals. I was released and referred to [facility] for detox. Allergies/Adverse Reactions: Allergies Allergy/AdvReac Type Severity Reaction Status Date / Time diphenhydramine HCl Allergy Severe Difficulty Verified 06/19/18 12:45 [From Benadryl] Breathing History of Present Illness: Pt is here d/t alcohol withdrawals seeking detox for treatment. Pt was referred from [facility] for detox. Pt was at [facility] last night and received medication for his withdrawals. Pt was d/c and referred to [facility] for detox. Exam Limitations: No Limitations - Ebola screening Have you traveled outside of the country in the last 21 days: No Have you had contact with anyone from an Ebola affected area: No Have you been sick,other than usual withdrawal symptoms: No Do you have a fever: No - Review of Systems Constitutional: Chills, Diaphoresis, Night Sweats, Changes in sleep EENT: reports: No Symptoms Reported Respiratory: reports: No Symptoms reported Cardiac: reports: Syncope GI: reports: Poor Appetite, Poor Fluid Intake : reports: No Symptoms Reported Musculoskeletal: reports: Joint Pain, Muscle Pain (left leg) Integumentary: reports: No Symptoms Reported Neuro: reports: Headache, Seizure, Tingling, Tremors Endocrine: reports: Excessive Sweating, Flushing, Intolerance to Cold, Intolerance to Heat Hematology: reports: No Symptoms Reported Psychiatric: reports: Judgement Intact, Mood/Affect Appropiate, Orientated x3, Agitated, Anxious Other Systems: Reviewed and Negative Patient History - Patient Medical History Hx Anemia: No Hx Asthma: No Hx Chronic Obstructive Pulmonary Disease (COPD): No Hx Cancer: No Hx Cardiac Disorders: No Hx Congestive Heart Failure: No Hx Hypertension: No Hx Hypercholesterolemia: No Hx Pacemaker: No HX Cerebrovascular Accident: No Hx Seizures: No Hx Dementia: No Hx Diabetes: No Hx Gastrointestinal Disorders: No Hx Liver Disease: No Hx Genitourinary Disorders: No Hx Sexually Transmitted Disorders: No Hx Renal Disease (ESRD): No Hx Thyroid Disease: No Hx Human Immunodeficiency Virus (HIV): No (last tested 07/20 negative) Hx Hepatitis C: No Hx Depression: Yes Hx Suicide Attempt: No Hx Bipolar Disorder: No Hx Schizophrenia: No Other Medical History: panic anxiety - Patient Surgical History Past Surgical History: No Hx Neurologic Surgery: No Hx Cataract Extraction: No Hx Cardiac Surgery: No Hx Lung Surgery: No Hx Breast Surgery: No Hx Breast Biopsy: No Hx Abdominal Surgery: No Hx Appendectomy: No Hx Cholecystectomy: No Hx Genitourinary Surgery: No Hx Section: No Hx Orthopedic Surgery: No Anesthesia Reaction: No - PPD History Previous Implant?: Yes Documented Results: Negative w/proof Implanted On Prior [facility] Admission?: Yes Date: 04/29/18 Results: 0 mm PPD to be Administered?: No - Reproductive History Patient is a Female of Child Bearing Age (11 -55 yrs old): No - Smoking Cessation Smoking history: Current every day smoker Have you smoked in the past 12 months: Yes Aproximately how many cigarettes per day: 30 Cigars Per Day: 0 Hx Chewing Tobacco Use: No Initiated information on smoking cessation: Yes 'Breaking Loose' booklet given: 06/19/18 - Substance & Tx. History Hx Alcohol Use: Yes Hx Substance Use: No Substance Use Type: Alcohol Hx Substance Use Treatment: Yes (last detox at [facility] 2mo ago) - Substances Abused Alcohol Route: Oral Frequency: Daily Amount used: 8 25 oz cans beer Age of first use: 16 Date of Last Use: 06/19/18 Family Disease History - Family Disease History Family Disease History: Diabetes: Grandparent, Heart Disease: Father ( [place]), [place]: Grandparent, Other: Father, Mother (alive, no med hx) Admission Physical Exam [facility] - Vital Signs Vital Signs: Vital Signs - 24 hr 06/19/18 10:51 Temperature 98.3 F Pulse Rate 110 H Respiratory 18 Rate Blood Pressure 134/85 - Physical General Appearance: Yes: Appropriately Dressed, Moderate Distress, Thin, Tremorous, Irritable, Sweating, Anxious HEENTM: Yes: Hearing grossly Normal, Normal Voice, Nasal Congestion Respiratory: Yes: Lungs Clear, Normal Breath Sounds, No Respiratory Distress Neck: Yes: No masses,lesions,Nodules Breast: Yes: Within Normal Limits Cardiology: Yes: Regular Rhythm, Regular Rate, S1, S2, Tachycardia Abdominal: Yes: Normal Bowel Sounds, Non Tender, Soft Genitourinary: Yes: Within Normal Limits Back: Yes: Normal Inspection Musculoskeletal: Yes: Gait Steady, Muscle Pain Extremities: Yes: Normal Capillary Refill, Normal Inspection, Tremors Neurological: Yes: Fully Oriented, Alert, Normal Response Integumentary: Yes: Normal Color, Diaphoresis Lymphatic: Yes: Within Normal Limits - Diagnostic (1) Asthma Current Visit: Yes Status: Chronic Qualifiers: Asthma severity: mild Asthma persistence: unspecified Asthma complication type: uncomplicated Qualified Code(s): J45.909 - Unspecified asthma, uncomplicated (2) MDD (major depressive disorder) Current Visit: No Status: Chronic Comment: History. (3) Nicotine dependence Current Visit: Yes Status: Chronic Qualifiers: Nicotine product type: cigarettes Substance use status: uncomplicated Qualified Code(s): F17.210 - Nicotine dependence, cigarettes, uncomplicated (4) Panic disorder Current Visit: Yes Status: Chronic Comment: As per existing records and self -report. (5) Alcohol dependence with uncomplicated withdrawal Current Visit: Yes Status: Chronic (6) Alcohol withdrawal seizure Current Visit: No Status: Suspected Qualifiers: Complication of substance-induced condition: uncomplicated Cleared for Admission S - Detox or Rehab [facility] Level of Care: Medically Managed Detox Regimen/Protocol: Librium [facility] Breath Alcohol Content Breath Alcohol Content: 0.088 Urine Drug Screen - Results Drug Screen Negative: No Urine Drug Screen Results: BZO-Benzodiazepines
[2018-06-19] MEDS ORDERED: ACETAMINOPHEN 325 MG TABLET (FP) PO PRN (13:13)
[2018-06-19] MEDS ORDERED: guaiFENesin/D-METHORPHAN HB 10 ML UNIT-DOSE CUPS PO PRN (13:13)
[2018-06-19] MEDS ORDERED: MAGNESIUM HYDROX 2400MG/30ML ORAL SUSPENSION 30 ML CUP PO PRN (13:13)
[2018-06-19] MEDS ORDERED: IBUPROFEN 400 MG TABLET (FP) PO PRN ×2 (13:13→13:17)
[2018-06-19] MEDS ORDERED: MAG HYDROX/AL HYDROX/SIMETH 30 ML UNIT-DOSE CUP PO PRN (13:13)
[2018-06-19] MEDS ORDERED: MAGNESIUM CITRATE 300 ML BOTTLE PO PRN (13:13)
[2018-06-19] MEDS ORDERED: LOPERAMIDE HCL 2 MG CAPSULE PO PRN (13:13)
[2018-06-19] MEDS ORDERED: MENTHOL/PHENOL 1 EACH UD MM PRN (13:13)
[2018-06-19] MEDS ORDERED: NICOTINE POLACRILEX 4 MG GUM BUC PRN (13:13)
[2018-06-19] MEDS ORDERED: ALBUTEROL SO4 8 GM HFA INHALER IH PRN (13:16)
[2018-06-19] MEDS ORDERED: chlordiazePOXIDE HCL 25 MG CAPSULE PO ONE (15:45)
[2018-06-19] MEDS: chlordiazePOXIDE HCL 25 MG CAPSULE PO SCH ×2 (17:38→22:25)
--- NOTE | 2018-06-19 19:08 | PN ---
S Progress Note Note: pt was seen for his anxiety and restlessness. he is requesting visitril. Pt states he takes visitiril at home and has taken it while a patient here in the past. Pt states he is not allergic to visitil even though it is in the benadryl family. Will order visitil as per pt request for his anxiety.
[2018-06-19] MEDS: hydrOXYzine PAMOATE 50 MG CAPSULE (FP) PO PRN (19:24)
[2018-06-19] MEDS ORDERED: COLLOIDAL OATMEAL 1 BAR EACH TP PRN (19:30)
[2018-06-19] MEDS ORDERED: MELATONIN 5 MG TABLETS PO PRN (22:00)
[2018-06-19] MEDS: THIAMINE HCL 100 MG TABLET (FP) PO SCH (22:24)
[2018-06-19] MEDS: levETIRAcetam 500 MG TABLET (FP) PO SCH (22:25)
[2018-06-20] MEDS: chlordiazePOXIDE HCL 25 MG CAPSULE PO SCH ×4 (06:50→22:12)
[2018-06-20 10:00] LABS: HEMATOCRIT 42.6 % (35.4-49); MCH 30.2 pg (25.7-33.7); MEAN CELL VOLUME 91.6 fl (80-96); MEAN PLT VOLUME 7.9 fl (7.5-11.1); PLATELET COUNT 340 K/MM3 (134-434); RBC 4.65 M/mm3 (4.00-5.60); RDW 14.2 % (11.9-15.9); WHITE BLOOD COUNT 8.4 K/mm3 (4.0-10.0)
[2018-06-20] MEDS: NICOTINE 21 MG/24 HOURS TOPICAL PATCH TD SCH (10:26)
[2018-06-20] MEDS: PRENATAL VITAMINS W/ FOLIC ACID TABLET (FP) PO SCH (10:26)
[2018-06-20] MEDS: levETIRAcetam 500 MG TABLET (FP) PO SCH ×2 (10:26→22:12)
[2018-06-20] MEDS: hydrOXYzine PAMOATE 50 MG CAPSULE (FP) PO PRN ×3 (10:30→22:12)
--- NOTE | 2018-06-20 11:02 | PN ---
S CIWA - CIWA Score Nausea/Vomitin-No Nausea/No Vomiting Muscle Tremors: 4-Moderate,w/Arms Extend Anxiety: 3 Agitation: 3 Paroxysmal Sweats: 3 Orientation: 0-Oriented Tacttile Disturbances: 0-None Auditory Disturbances: 0-None Visual Disturbances: 0-None Headache: 0-None Present CIWA-Ar Total Score: 13 [facility] Progress Note (SOAP) Subjective: stomach ache sweats body aches shakes agitation Objective: 06/20/18 11:02 Vital Signs Temperature 98.3 F 06/20/18 09:18 Pulse Rate 78 06/20/18 09:18 Respiratory Rate 18 06/20/18 09:18 Blood Pressure 132/76 06/20/18 09:18 O2 Sat by Pulse Oximetry (%) Laboratory Tests 06/20/18 05:45 WBC 8.4 RBC 4.65 Hgb 14.0 Hct 42.6 D MCV 91.6 MCH 30.2 MCHC 33.0 RDW 14.2 D Plt Count 340 MPV 7.9 rest of labs pending aaox3 ambulating no acute distress Assessment: 06/20/18 11:02 withdrawal sx Plan: continue detox increase fluids labs pending
[2018-06-20 11:17] LABS: ALBUMIN 4.1 g/dl (3.4-5.0); ALK PHOS 69 U/L (45-117); ANION GAP 8 MMOL/L (8-16); BILIRUBIN,TOTAL 0.2 mg/dL (0.2-1); BLOOD UREA NITROGEN 10 mg/dL (7-18); CALCIUM 8.6 mg/dL (8.5-10.1); CHLORIDE 102 mmol/L (98-107); CO2 26 mmol/L (21-32); CREATININE 0.9 mg/dL (0.55-1.3); GLUCOSE,RANDOM 70 mg/dL (74-106); SGOT/AST 40 U/L (15-37); SGPT/ALT 28 U/L (13-61); SODIUM 136 mmol/L (136-145); TOT PROT 7.5 g/dl (6.4-8.2)
[2018-06-20] MEDS ORDERED: ONDANSETRON *ODT* 4 MG TABLET SL PRN (11:25)
--- NOTE | 2018-06-20 13:13 | CONSULT ---
[facility] Psychiatric Consult - Data Date of interview: 06/20/18 Admission source: [facility] Identifying data: Readmisssion to [facility] for this 42 y/o male seeking detoxification treatment, on , for alcohol dependence. Patient is single without children, undomiciled, unemployed and supported on food stamps. Substance Abuse History: Confirmed by patient in this session. Details in current [facility] report : Smoking history: Current every day smoker. Have you smoked in the past 12 months: Yes. Aproximately how many cigarettes per day: 30. Cigars Per Day: 0. Hx Chewing Tobacco Use: No. Initiated information on smoking cessation: Yes. 'Breaking Loose' booklet given: 06/19/18. - Substance & Tx. History. Hx Alcohol Use: Yes. Hx Substance Use: No. Substance Use Type : Alcohol. Hx Substance Use Treatment: Yes (last detox at [facility] 2mo ago). - Substances Abused. Alcohol. Route: Oral. Frequency: Daily. Amount used: 8 25 oz cans beer. Age of first use: 16. Date of Last Use: Medical History: Bronchial asthma, GERD and substance-related seizures. Psychiatric History: Patient denies history of psychiatric hospitalizations. Diagnosed with Anxiety Disorder and Panic Disorder. Mr Aquino sees a psychiatrist at the [facility] in the [place]. Medicated with effexor 75 mg bid + remeron 15 mg po hs (self-report). Patient denies history of suicide attempts. Physical/Sexual Abuse/Trauma History: Patient denies. Additional Comment: Urine Drug Screen Results: BZO-Benzodiazepines. Noted. Mental Status Exam - Mental Status Exam Alert and Oriented to: Time, Place, Person Cognitive Function: Good Patient Appearance: Well Groomed Mood: Apprehensive, Hopeful Affect: Appropriate, Normal Range Patient Behavior: Fatigued, Cooperative Speech Pattern: Clear, Appropriate Voice Loudness: Normal Thought Process: Intact, Goal Oriented Thought Disorder: Not Present Hallucinations: Denies Suicidal Ideation: Denies Homicidal Ideation: Denies Insight/Judgement: Poor Sleep: Poorly, Difficulty falling asleep Appetite: Good Muscle strength/Tone: Normal Gait/Station: Normal Psychiatric Findings - Problem List ([place] 1, 2,3) (1) Alcohol dependence with uncomplicated withdrawal Current Visit: Yes Status: Chronic (2) Nicotine dependence Current Visit: Yes Status: Chronic Qualifiers: Nicotine product type: cigarettes Substance use status: uncomplicated Qualified Code(s): F17.210 - Nicotine dependence, cigarettes, uncomplicated (3) MDD (major depressive disorder) Current Visit: Yes Status: Chronic Comment: Self-report. (4) Panic disorder Current Visit: Yes Status: Chronic (5) Insomnia Current Visit: Yes Status: Chronic - Initial Treatment Plan Initial Treatment Plan: Psychoeducation. Sleep hygiene. Detoxification in progress. AA meetings. Patient is made aware of current interventions available for relapse prevention (opioid antagonist, acamprosate, psychotherapy, 12 step doctrine). Will resume medications as : effexor 75 mg po bid + remeron 15 mg po hs. Side effects/benefits of both drugs are discussed with the patient. Mr Aquino is in agreement with this careplan. Observation.
[2018-06-20] MEDS: chlordiazePOXIDE HCL 25 MG CAPSULE PO PRN (15:15)
[2018-06-20] MEDS: VENLAFAXINE HCL 75 MG TABLET PO SCH (18:41)
[2018-06-20] MEDS ORDERED: MIRTAZAPINE 15 MG TABLET (FP) PO SCH (22:00)
[2018-06-20] MEDS: THIAMINE HCL 100 MG TABLET (FP) PO SCH (22:12)
[2018-06-21] MEDS: chlordiazePOXIDE HCL 25 MG CAPSULE PO SCH ×2 (05:21→10:19)
[2018-06-21] MEDS: VENLAFAXINE HCL 75 MG TABLET PO SCH ×2 (10:19→18:04)
[2018-06-21] MEDS: NICOTINE 21 MG/24 HOURS TOPICAL PATCH TD SCH (10:19)
[2018-06-21] MEDS: PRENATAL VITAMINS W/ FOLIC ACID TABLET (FP) PO SCH (10:19)
[2018-06-21] MEDS: levETIRAcetam 500 MG TABLET (FP) PO SCH (10:19)
[2018-06-21] MEDS: hydrOXYzine PAMOATE 50 MG CAPSULE (FP) PO PRN ×2 (12:23→16:32)
--- NOTE | 2018-06-21 12:46 | PN ---
[facility] CIWA - CIWA Score Nausea/Vomitin-No Nausea/No Vomiting Muscle Tremors: 3 Anxiety: 3 Agitation: 3 Paroxysmal Sweats: 3 Orientation: 0-Oriented Tacttile Disturbances: 0-None Auditory Disturbances: 0-None Visual Disturbances: 0-None Headache: 0-None Present CIWA-Ar Total Score: 12 S Progress Note (SOAP) Subjective: sweats agitation interrupted sleep Objective: 06/21/18 12:46 Vital Signs Temperature 97.7 F 06/21/18 09:23 Pulse Rate 77 06/21/18 09:23 Respiratory Rate 18 06/21/18 09:23 Blood Pressure 127/69 06/21/18 09:23 O2 Sat by Pulse Oximetry (%) Laboratory Tests 06/20/18 06/20/18 06/20/18 05:45 05:45 05:45 WBC 8.4 RBC 4.65 Hgb 14.0 Hct 42.6 D MCV 91.6 MCH 30.2 MCHC 33.0 RDW 14.2 D Plt Count 340 MPV 7.9 Sodium 136 Potassium 4.0 Chloride 102 Carbon Dioxide 26 Anion Gap 8 BUN 10 Creatinine 0.9 Creat Clearance w eGFR > 60 Random Glucose 70 L Calcium 8.6 Total Bilirubin 0.2 AST 40 H ALT 28 Alkaline Phosphatase 69 Total Protein 7.5 Albumin 4.1 RPR Titer Nonreactive aaox3 ambulating no acute distress Assessment: 06/21/18 12:46 withdrawal sx Plan: continue detox increase fluids
[2018-06-21] MEDS: chlordiazePOXIDE HCL 25 MG CAPSULE PO PRN (15:15)
[2018-06-21] MEDS ORDERED: chlordiazePOXIDE 5 MG CAPSULE PO SCH (17:00)
[2018-06-21 17:58] VITALS: BP 118/65; PULSE 108; TEMP 97.9
--- NOTE | 2018-06-21 21:52 | DS ---
[facility] Detox Discharge Summary Admission Date: 06/19/18 Discharge Date: 06/21/18 - Physical Exam Results Vital Signs: Vital Signs Temperature 97.9 F 06/21/18 17:57 Pulse Rate 108 H 06/21/18 17:57 Respiratory Rate 18 06/21/18 17:57 Blood Pressure 118/65 06/21/18 17:57 O2 Sat by Pulse Oximetry (%) - Medication Discharge Medications: Ambulatory Orders Mirtazapine [Remeron -] 15 mg PO HS 02/07/17 Hydroxyzine HCl 50 mg PO TID 04/27/18 Ibuprofen [Ibu] 800 mg PO TID PRN 04/27/18 Venlafaxine HCl [Effexor -] 75 mg PO BID@1000,1800 04/27/18 Albuterol Sulfate Inhaler - [Ventolin HFA Inhaler -] 2 inh PO Q4H PRN #1 inhaler 05/01/18 levETIRAcetam [Keppra -] 1,000 mg PO BID #30 tablet 05/01/18
[2018-06-21] MEDS ORDERED: BACLOFEN 10 MG TABLET (FP) PO SCH (22:00)
[2018-06-22] MEDS ORDERED: chlordiazePOXIDE HCL 10 MG CAPSULE PO SCH (17:00)
== END 2018-06-21 20:20 | disposition left against medical advice (07) | DRG 770 ==
LOC: YASAS 10:23 → Y6N 15:06
PROC: HZ2ZZZZ Detoxification Services for Substance Abuse Treatment (ICD-10-PCS; principal; 2018-06-19)
DX: F10.230 Alcohol dependence with withdrawal, uncomplicated (principal); F17.210 Nicotine dependence, cigarettes, uncomplicated; F33.9 Major depressive disorder, recurrent, unspecified; F41.0 Panic disorder [episodic paroxysmal anxiety]; J45.909 Unspecified asthma, uncomplicated; G47.00 Insomnia, unspecified; K21.9 Gastro-esophageal reflux disease without esophagitis; R00.0 Tachycardia, unspecified; Z86.69 Personal history of other diseases of the nervous system and sense organs
CPT/HCPCS: 36415; 80053; 85027; 86593; Q0162

== ENCOUNTER 2018-09-13 10:55 | Inpatient (IN) | payer OTHER ==
[2018-09-13 11:07] VITALS: BMI 19.3
--- NOTE | 2018-09-13 11:54 | HP ---
CIWA Score Nausea/Vomitin Muscle Tremors: 2 Anxiety: 2 Agitation: 2 Paroxysmal Sweats: 1-Minimal Palms Moist Orientation: 0-Oriented Tacttile Disturbances: 1-Very Mild Itch/Numbness Auditory Disturbances: 1-Very Mild Visual Disturbances: 0-None Headache: 2-Mild CIWA-Ar Total Score: 13 - Admission Criteria OASAS Guidelines: Admission for Medically Managed Detox: Requires at least one of the followin. CIWA greater than 12 2. Seizures within the past 24 hours 3. Delirium tremens within the past 24 hours 4. Hallucinations within the past 24 hours 5. Acute intervention needed for co occurring medical disorder 6. Acute intervention needed for co occurring psychiatric disorder 7. Severe withdrawal that cannot be handled at a lower level of care (continued vomiting, continued diarrhea, abnormal vital signs) requiring intravenous medication and/or fluids 8. Patient presents the following: CIWA greater than 12 Admission Criteria Met: Admission criteria met Admission ROS [facility] - HPI Chief Complaint: i need help to stop drinking alcohol Allergies/Adverse Reactions: Allergies Allergy/AdvReac Type Severity Reaction Status Date / Time diphenhydramine HCl Allergy Severe Difficulty Verified 06/19/18 12:45 [From Benadryl] Breathing History of Present Illness: this 43 years old male with alcohol dependence,seeking detox,withdrawal symptom, seen in [facility] last night received librium refer for detox multiple admissions in detox last [facility] 06/19/18 to 06/21/18 not completed alcohol relate seizure last 04/19 syncope nicotine dependence 3o cigarette/day weight loss sensitive skin longest period of sobriety 6 months plan to go to [facility] - Ebola screening Have you traveled outside of the country in the last 21 days: No Have you had contact with anyone from an Ebola affected area: No Have you been sick,other than usual withdrawal symptoms: No Do you have a fever: No - Review of Systems Constitutional: Loss of Appetite, Malaise, Night Sweats, Changes in sleep, Weakness, Unintentional Wgt. Loss EENT: reports: Nose Congestion Respiratory: reports: No Symptoms reported Cardiac: reports: Palpitations GI: reports: Nausea, Vomiting, Abdominal cramping Musculoskeletal: reports: Back Pain, Muscle Pain Integumentary: reports: Dryness Neuro: reports: Headache, Seizure, Tremors Endocrine: reports: No Symptoms Reported Hematology: reports: No Symptoms Reported Psychiatric: reports: No Sypmtoms Reported, Judgement Intact, Mood/Affect Appropiate, Orientated x3, Anxious, Depressed, other (insomnia) Other Systems: Reviewed and Negative Patient History - Patient Medical History Hx Anemia: No Hx Asthma: Yes (on albuterol inhaler) Hx Chronic Obstructive Pulmonary Disease (COPD): No Hx Cancer: No Hx Cardiac Disorders: No Hx Congestive Heart Failure: No Hx Hypertension: No Hx Hypercholesterolemia: No Hx Pacemaker: No HX Cerebrovascular Accident: No Hx Seizures: No Hx Dementia: No Hx Diabetes: No Hx Gastrointestinal Disorders: No Hx Liver Disease: No Hx Genitourinary Disorders: No Hx Sexually Transmitted Disorders: No Hx Renal Disease (ESRD): No Hx Thyroid Disease: No Hx Human Immunodeficiency Virus (HIV): No (last tested 07/20 negative) Hx Hepatitis C: No Hx Depression: Yes (anxiety,insomnia) Hx Suicide Attempt: No Hx Bipolar Disorder: No Hx Schizophrenia: No Other Medical History: no suicidal,no homicidal - Patient Surgical History Past Surgical History: No Hx Neurologic Surgery: No Hx Cataract Extraction: No Hx Cardiac Surgery: No Hx Lung Surgery: No Hx Breast Surgery: No Hx Breast Biopsy: No Hx Abdominal Surgery: No Hx Appendectomy: No Hx Cholecystectomy: No Hx Genitourinary Surgery: No Hx Section: No Hx Orthopedic Surgery: No Anesthesia Reaction: No - PPD History Previous Implant?: Yes Documented Results: Negative w/proof Date: 04/29/18 Results: 0 mm PPD to be Administered?: No - Reproductive History Patient : No - Smoking Cessation Smoking history: Current every day smoker Have you smoked in the past 12 months: Yes Aproximately how many cigarettes per day: 30 Cigars Per Day: 0 Hx Chewing Tobacco Use: No Initiated information on smoking cessation: Yes 'Breaking Loose' booklet given: 09/13/18 - Substance & Tx. History Hx Alcohol Use: Yes Hx Substance Use: No Substance Use Type: Alcohol Hx Substance Use Treatment: Yes ([facility] 06/19/18 to 06/21/18) - Substances Abused Alcohol Route: Oral Frequency: Daily Amount used: 8(25 oz can beer , 4 pints vodka Age of first use: 16 Date of Last Use: 09/13/18 Family Disease History - Family Disease History Family Disease History: Diabetes: Grandparent, Heart Disease: Father ( [place]), [place]: Grandparent, Other: Father, Mother (alive, no med hx) Admission Physical Exam [facility] - Vital Signs Vital Signs: Vital Signs - 24 hr 09/13/18 11:01 Temperature 97.7 F Pulse Rate 106 H Respiratory 17 Rate Blood Pressure 147/81 - Physical General Appearance: Yes: Moderate Distress, Tremorous, Irritable, Sweating, Anxious HEENTM: Yes: Normal ENT Inspection, MIGUEL A, Pharynx Normal Respiratory: Yes: Lungs Clear, Normal Breath Sounds, No Respiratory Distress Neck: Yes: Within Normal Limits, Supple, Trachea in good position Breast: Yes: Within Normal Limits Cardiology: Yes: Tachycardia Abdominal: Yes: Within Normal Limits, Normal Bowel Sounds, Non Tender, Soft Genitourinary: Yes: Within Normal Limits Back: Yes: Muscle Spasm Musculoskeletal: Yes: Back pain, Muscle Pain Extremities: Yes: Within Normal Limits, Normal Range of Motion, Tremors Neurological: Yes: blade 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 (5) Nicotine dependence Current Visit: No Status: Chronic Qualifiers: Nicotine product type: cigarettes Substance use status: uncomplicated Qualified Code(s): F17.210 - Nicotine dependence, cigarettes, uncomplicated (6) Panic disorder Current Visit: No Status: Chronic Comment: As per existing records and self- report. (7) Alcohol withdrawal seizure Current Visit: No Status: Suspected Qualifiers: Complication of substance-induced condition: uncomplicated Qualified Code(s ): F10.230 - Alcohol dependence with withdrawal, uncomplicated (8) Syncope Current Visit: Yes Status: Acute (9) Sensitive skin Current Visit: Yes Status: Acute (10) Weight loss Current Visit: Yes Status: Acute Cleared for Admission [facility] - Detox or Rehab [facility] Level of Care: Medically Managed Detox Regimen/Protocol: Librium [facility] Breath Alcohol Content Breath Alcohol Content: 0.006 Urine Drug Screen - Results Drug Screen Negative: No Urine Drug Screen Results: BZO-Benzodiazepines Inpatient Rehab Admission - Rehab Decision to Admit Inpatient rehab admission?: No
[2018-09-13] MEDS ORDERED: MAGNESIUM CITRATE 300 ML BOTTLE PO PRN (12:02)
[2018-09-13] MEDS ORDERED: NICOTINE POLACRILEX 4 MG GUM BUC PRN (12:02)
[2018-09-13] MEDS ORDERED: MAGNESIUM HYDROX 2400MG/30ML ORAL SUSPENSION 30 ML CUP PO PRN (12:02)
[2018-09-13] MEDS ORDERED: MELATONIN 5 MG TABLETS PO PRN (12:02)
[2018-09-13] MEDS ORDERED: BISMUTH SUBSALICYLATE 524 MG/30 ML UD PO PRN (12:02)
[2018-09-13] MEDS ORDERED: MAG HYDROX/AL HYDROX/SIMETH 30 ML UNIT-DOSE CUP PO PRN (12:02)
[2018-09-13] MEDS ORDERED: IBUPROFEN 400 MG TABLET (FP) PO PRN (12:02)
[2018-09-13] MEDS ORDERED: ACETAMINOPHEN 325 MG TABLET (FP) PO PRN ×2 (12:02)
[2018-09-13] MEDS ORDERED: MENTHOL/PHENOL 1 EACH UD MM PRN (12:02)
[2018-09-13] MEDS ORDERED: ALBUTEROL SO4 8 GM HFA INHALER IH PRN (12:06)
[2018-09-13] MEDS ORDERED: COLLOIDAL OATMEAL 1 BAR EACH TP PRN (12:07)
[2018-09-13] MEDS: hydrOXYzine PAMOATE 50 MG CAPSULE (FP) PO SCH ×2 (13:23→22:23)
[2018-09-13] MEDS: NICOTINE 21 MG/24 HOURS TOPICAL PATCH TD SCH (13:24)
[2018-09-13] MEDS: chlordiazePOXIDE HCL 25 MG CAPSULE PO PRN ×2 (13:25→19:37)
[2018-09-13] MEDS: chlordiazePOXIDE HCL 25 MG CAPSULE PO SCH ×2 (17:38→22:23)
[2018-09-13] MEDS: ONDANSETRON *ODT* 4 MG TABLET SL PRN (19:55)
[2018-09-13] MEDS ORDERED: VENLAFAXINE HCL 150 MG E.R. CAPSULE PO SCH (20:15)
--- NOTE | 2018-09-13 20:22 | PN ---
[facility] Progress Note Note: Psychiatric nurse practitioner note: Call received requesting patient's evening dose of Effexor 150mg ER and Mirtazapine 15mg HS. Pharmacy claims reviewed and noted a 30 day prescription of effexor 150mg ER + Mirtazapine 15mg HS was electronically sent to patient's pharmacy on 08/31/18. [employer] able to speak to patient. Patient calm and cooperative on the telephone. He reports medication compliance and reports taking his effexor 150mg ER and mirtazapine 15mg consistently every night. Will order effexor 150mg ER @ 2000 + Mirtazapine 15mg HS. Verbal consent given.
[2018-09-13] MEDS: MIRTAZAPINE 30 MG TABLET (FP) PO SCH (22:22)
[2018-09-13] MEDS: THIAMINE HCL 100 MG TABLET (FP) PO SCH (22:22)
[2018-09-13] MEDS: levETIRAcetam 500 MG TABLET (FP) PO SCH (22:23)
[2018-09-14] MEDS: hydrOXYzine PAMOATE 50 MG CAPSULE (FP) PO SCH ×3 (05:33→22:10)
[2018-09-14] MEDS: chlordiazePOXIDE HCL 25 MG CAPSULE PO SCH ×4 (05:34→22:10)
[2018-09-14] MEDS: ONDANSETRON *ODT* 4 MG TABLET SL PRN ×2 (05:35→16:39)
--- NOTE | 2018-09-14 08:57 | CONSULT ---
[facility] Psychiatric Consult - Data Date of interview: 09/14/18 Admission source: [facility] Identifying data: Patient is a 43 year old single male, without children, unemployed, domiciled, and is supported by his mother. This is one of multiple admissions for patient. Patient admitted to for alcohol dependence. Substance Abuse History: - Smoking Cessation. Smoking history: Current every day smoker. Have you smoked in the past 12 months: Yes. Aproximately how many cigarettes per day: 30. Cigars Per Day: 0. Hx Chewing Tobacco Use: No. Initiated information on smoking cessation: Yes. 'Breaking Loose' booklet given : 09/13/18. - Substance & Tx. History. Hx Alcohol Use: Yes. Hx Substance Use : No. Substance Use Type: Alcohol. Hx Substance Use Treatment: Yes ([facility] 06/19 to 06/21/18). - Substances Abused. Alcohol. Route: Oral. Frequency: Daily. Amount used: 8(25 oz can beer , 4 pints vodka. Age of first use: 16. Date of Last Use: 09/13/18 Medical History: Asthma Psychiatric History: Patient's first psychiatric contact was at 17 years of age to address anxiety. He was seen by an outpatient psychiatrist and was diagnosed with anxiety disorder. Throughout the years he has seen different psychiatric providers. He reports past trials of paxil, lexapro, valium, prozac, and buspar. Mr. Aquino reports one psychiatric hospitalizations in 2018 at [facility] in [place], [place] after he reported suicidal ideation as an attempt to be admitted to an alcohol program. He was discharged after five days on the psychiatric unit. Patient's most recent outpatient care was provided at the [facility]. At the moment he does not have a psychiatrist and therefore receives his refills from detox/rehab facilites. Patient was recently at [facility] rehab and was discharged with a prescription of effexor 150mg ER + 75mg daily+ Mirtazapine 15mg HS (written on )(pharmacy claims reviewed). Patient also has an additional effexor prescription of 75mg every 8 hours that was given to him on 09/07/18. Patient denies h/o suicide atttempt. At present, Mr. Aquino reports feeling anxious. Physical/Sexual Abuse/Trauma History: denies. Mental Status Exam - Mental Status Exam Alert and Oriented to: Time, Place, Person Cognitive Function: Good Patient Appearance: Well Groomed Mood: Anxious Affect: Mood Congruent Patient Behavior: Appropriate, Cooperative Speech Pattern: Appropriate Voice Loudness: Normal Thought Process: Intact, Goal Oriented Thought Disorder: Not Present Hallucinations: Denies Suicidal Ideation: Denies Homicidal Ideation: Denies Insight/Judgement: Poor Sleep: Fair Appetite: Fair Muscle strength/Tone: Normal Gait/Station: Normal Psychiatric Findings - Problem List ([place] 1, 2,3) (1) Alcohol dependence with uncomplicated withdrawal Current Visit: Yes Status: Acute (2) Nicotine dependence Current Visit: Yes Status: Chronic Qualifiers: Nicotine product type: cigarettes Substance use status: uncomplicated Qualified Code(s): F17.210 - Nicotine dependence, cigarettes, uncomplicated (3) Panic disorder Current Visit: Yes Status: Chronic - Initial Treatment Plan Initial Treatment Plan: Psychoeducation provided. Detoxification in progress. Will order Effexor 75 daily TID + Mirtazapine 15mg HS. Benefits and side effects discussed. Patient made aware of the risk of hypertension when accepting effexor. Verbal consent given.
[2018-09-14 09:38] LABS: HEMATOCRIT 37.5 % (35.4-49); HEMOGLOBIN 12.8 GM/dL (11.7-16.9); MCH 30.9 pg (25.7-33.7); MCHC 34.3 g/dl (32.0-35.9); MEAN CELL VOLUME 90.1 fl (80-96); MEAN PLT VOLUME 8.1 fl (7.5-11.1); PLATELET COUNT 351 K/MM3 (134-434); RBC 4.16 M/mm3 (4.00-5.60); RDW 14.1 % (11.9-15.9); WHITE BLOOD COUNT 8.6 K/mm3 (4.0-10.0)
[2018-09-14 09:56] LABS: ALBUMIN 3.7 g/dl (3.4-5.0); ALK PHOS 67 U/L (45-117); ANION GAP 8 MMOL/L (8-16); BILIRUBIN,TOTAL 0.4 mg/dL (0.2-1); BLOOD UREA NITROGEN 8 mg/dL (7-18); CALCIUM 8.6 mg/dL (8.5-10.1); CHLORIDE 108 mmol/L (98-107); CO2 23 mmol/L (21-32); CREATININE 0.8 mg/dL (0.55-1.3); GLUCOSE,RANDOM 91 mg/dL (74-106); POTASSIUM 3.9 mmol/L (3.5-5.1); SGOT/AST 19 U/L (15-37); SGPT/ALT 21 U/L (13-61); SODIUM 139 mmol/L (136-145); TOT PROT 6.9 g/dl (6.4-8.2)
[2018-09-14] MEDS ORDERED: VENLAFAXINE HCL 75 MG TABLET PO SCH (10:00)
[2018-09-14] MEDS: levETIRAcetam 500 MG TABLET (FP) PO SCH ×2 (10:02→22:10)
[2018-09-14] MEDS: PRENATAL VITAMINS W/ FOLIC ACID TABLET (FP) PO SCH (10:02)
[2018-09-14] MEDS: NICOTINE 21 MG/24 HOURS TOPICAL PATCH TD SCH (10:02)
[2018-09-14] MEDS: hydrOXYzine PAMOATE 25 MG CAPSULE (FP) PO PRN ×2 (10:03→18:52)
[2018-09-14] MEDS: chlordiazePOXIDE HCL 25 MG CAPSULE PO PRN (13:47)
--- NOTE | 2018-09-14 16:32 | PN ---
S CIWA - CIWA Score Nausea/Vomitin-No Nausea/No Vomiting Muscle Tremors: 3 Anxiety: 3 Agitation: 0-Normal Activity Paroxysmal Sweats: 3 Orientation: 0-Oriented Tacttile Disturbances: 1-Very Mild Itch/Numbness Auditory Disturbances: 2-Mild Harshness/Frighten Visual Disturbances: 2-Mild Sensitivity Headache: 2-Mild CIWA-Ar Total Score: 16 BHS Progress Note (SOAP) Subjective: Tremors, Anxious, Sweating, H/A. Objective: PATIENT A & O X 3, OBSERVED AMBULATING ON UNIT. IN NO ACUTE DISTRESS. 09/14/18 16:31 Vital Signs Temperature 97.1 F L 09/14/18 13:42 Pulse Rate 91 H 09/14/18 13:42 Respiratory Rate 18 09/14/18 13:42 Blood Pressure 107/61 09/14/18 13:42 O2 Sat by Pulse Oximetry (%) Laboratory Tests 09/13/18 09/14/18 09/14/18 12:00 05:50 05:50 WBC 8.6 RBC 4.16 Hgb 12.8 Hct 37.5 MCV 90.1 MCH 30.9 MCHC 34.3 RDW 14.1 Plt Count 351 MPV 8.1 Sodium 139 Potassium 3.9 Chloride 108 H Carbon Dioxide 23 Anion Gap 8 BUN 8 Creatinine 0.8 Creat Clearance w eGFR 105.01 Random Glucose 91 Calcium 8.6 Total Bilirubin 0.4 AST 19 ALT 21 Alkaline Phosphatase 67 Total Protein 6.9 Albumin 3.7 RPR Titer HIV 1&2 Antibody Screen Negative HIV P24 Antigen Negative 09/14/18 05:50 WBC RBC Hgb Hct MCV MCH MCHC RDW Plt Count MPV Sodium Potassium Chloride Carbon Dioxide Anion Gap BUN Creatinine Creat Clearance w eGFR Random Glucose Calcium Total Bilirubin AST ALT Alkaline Phosphatase Total Protein Albumin RPR Titer Nonreactive HIV 1&2 Antibody Screen HIV P24 Antigen LABS NOTED. Assessment: 09/14/18 16:32 WITHDRAWAL SYMPTOMS. Plan: CONTINUE DETOX. INCREASE DAILY PO FLUID INTAKE.
[2018-09-14] MEDS: VENLAFAXINE HCL 75 MG TABLET PO SCH (17:44)
[2018-09-14] MEDS: THIAMINE HCL 100 MG TABLET (FP) PO SCH (22:10)
[2018-09-14] MEDS: MIRTAZAPINE 30 MG TABLET (FP) PO SCH (22:10)
[2018-09-14] MEDS: METHOCARBAMOL 500 MG TABLET PO PRN (22:12)
[2018-09-15] MEDS: chlordiazePOXIDE HCL 25 MG CAPSULE PO SCH ×2 (05:28→10:03)
[2018-09-15] MEDS: hydrOXYzine PAMOATE 50 MG CAPSULE (FP) PO SCH ×3 (05:28→22:37)
[2018-09-15] MEDS: levETIRAcetam 500 MG TABLET (FP) PO SCH ×2 (10:03→22:37)
[2018-09-15] MEDS: VENLAFAXINE HCL 75 MG TABLET PO SCH ×3 (10:03→17:23)
[2018-09-15] MEDS: PRENATAL VITAMINS W/ FOLIC ACID TABLET (FP) PO SCH (10:05)
[2018-09-15] MEDS: NICOTINE 21 MG/24 HOURS TOPICAL PATCH TD SCH (10:05)
[2018-09-15] MEDS: NAPROXEN 375 MG TABLET (FP) PO SCH ×2 (12:08→22:38)
--- NOTE | 2018-09-15 14:46 | PN ---
S CIWA - CIWA Score Nausea/Vomitin-No Nausea/No Vomiting Muscle Tremors: None Anxiety: 3 Agitation: 1-Slight > Activity Paroxysmal Sweats: No Perspiration Orientation: 0-Oriented Tacttile Disturbances: 2-Mild Itch/Numbness/Burn Auditory Disturbances: 1-Very Mild Visual Disturbances: 2-Mild Sensitivity Headache: 2-Mild CIWA-Ar Total Score: 11 BHS Progress Note (SOAP) Subjective: Stomach Cramping, Body Aches, Anxious, H/A. Objective: PATIENT A & O X 3, OBSERVED AMBULATING ON UNIT. IN NO ACUTE DISTRESS. 09/15/18 14:47 Vital Signs Temperature 97.3 F L 09/15/18 13:50 Pulse Rate 89 09/15/18 13:50 Respiratory Rate 18 09/15/18 13:50 Blood Pressure 105/63 09/15/18 13:50 O2 Sat by Pulse Oximetry (%) Laboratory Tests 09/13/18 09/14/18 09/14/18 12:00 05:50 05:50 WBC 8.6 RBC 4.16 Hgb 12.8 Hct 37.5 MCV 90.1 MCH 30.9 MCHC 34.3 RDW 14.1 Plt Count 351 MPV 8.1 Sodium 139 Potassium 3.9 Chloride 108 H Carbon Dioxide 23 Anion Gap 8 BUN 8 Creatinine 0.8 Creat Clearance w eGFR 105.01 Random Glucose 91 Calcium 8.6 Total Bilirubin 0.4 AST 19 ALT 21 Alkaline Phosphatase 67 Total Protein 6.9 Albumin 3.7 RPR Titer HIV 1&2 Antibody Screen Negative HIV P24 Antigen Negative 09/14/18 05:50 WBC RBC Hgb Hct MCV MCH MCHC RDW Plt Count MPV Sodium Potassium Chloride Carbon Dioxide Anion Gap BUN Creatinine Creat Clearance w eGFR Random Glucose Calcium Total Bilirubin AST ALT Alkaline Phosphatase Total Protein Albumin RPR Titer Nonreactive HIV 1&2 Antibody Screen HIV P24 Antigen LABS NOTED. Assessment: 09/15/18 14:48 WITHDRAWAL SYMPTOMS. Plan: CONTINUE DETOX.
[2018-09-15] MEDS: METHOCARBAMOL 500 MG TABLET PO PRN (15:45)
[2018-09-15] MEDS ORDERED: chlordiazePOXIDE HCL 10 MG CAPSULE PO PRN (17:00)
[2018-09-15] MEDS: chlordiazePOXIDE HCL 10 MG CAPSULE PO SCH ×2 (17:23→22:40)
[2018-09-15] MEDS ORDERED: levETIRAcetam 250 MG TABLET (FP) PO ONE (21:55)
[2018-09-15] MEDS: MIRTAZAPINE 30 MG TABLET (FP) PO SCH (22:37)
[2018-09-15] MEDS: THIAMINE HCL 100 MG TABLET (FP) PO SCH (22:37)
[2018-09-16] MEDS: chlordiazePOXIDE HCL 10 MG CAPSULE PO SCH ×3 (05:26→17:09)
[2018-09-16] MEDS: hydrOXYzine PAMOATE 50 MG CAPSULE (FP) PO SCH ×3 (05:26→22:18)
[2018-09-16] MEDS: VENLAFAXINE HCL 75 MG TABLET PO SCH ×3 (07:53→17:09)
[2018-09-16] MEDS ORDERED: levETIRAcetam 250 MG TABLET (FP) PO ONE (09:01)
[2018-09-16] MEDS: levETIRAcetam 500 MG TABLET (FP) PO SCH ×2 (10:16→22:18)
[2018-09-16] MEDS: NAPROXEN 375 MG TABLET (FP) PO SCH ×2 (10:16→22:18)
[2018-09-16] MEDS: PRENATAL VITAMINS W/ FOLIC ACID TABLET (FP) PO SCH (10:16)
--- NOTE | 2018-09-16 10:16 | PN ---
[facility] CIWA - CIWA Score Nausea/Vomitin-No Nausea/No Vomiting Muscle Tremors: 1-None Visible, but [place] Anxiety: 1-Mildly Anxious Agitation: 1-Slight > Activity Paroxysmal Sweats: 1-Minimal Palms Moist Orientation: 1-Uncertain about Date Tacttile Disturbances: 1-Very Mild Itch/Numbness Auditory Disturbances: 0-None Visual Disturbances: 0-None Headache: 1-Very Mild CIWA-Ar Total Score: 7 S Progress Note (SOAP) Subjective: feeling better less tremor mild sweating sleep better at night talking about aftercare with staff Objective: 09/16/18 10:16 Vital Signs Temperature 96.2 F L 09/16/18 09:32 Pulse Rate 84 09/16/18 09:32 Respiratory Rate 18 09/16/18 09:32 Blood Pressure 121/76 09/16/18 09:32 O2 Sat by Pulse Oximetry (%) Laboratory Last Values WBC 8.6 K/mm3 (4.0-10.0) 09/14/18 05:50 RBC 4.16 M/mm3 (4.00-5.60) 09/14/18 05:50 Hgb 12.8 GM/dL (11.7-16.9) 09/14/18 05:50 Hct 37.5 % (35.4-49) 09/14/18 05:50 MCV 90.1 fl (80-96) 09/14/18 05:50 MCH 30.9 pg (25.7-33.7) 09/14/18 05:50 MCHC 34.3 g/dl (32.0-35.9) 09/14/18 05:50 RDW 14.1 % (11.9-15.9) 09/14/18 05:50 Plt Count 351 K/MM3 (134-434) 09/14/18 05:50 MPV 8.1 fl (7.5-11.1) 09/14/18 05:50 Sodium 139 mmol/L (136-145) 09/14/18 05:50 Potassium 3.9 mmol/L (3.5-5.1) 09/14/18 05:50 Chloride 108 mmol/L (98-107) H 09/14/18 05:50 Carbon Dioxide 23 mmol/L (21-32) 09/14/18 05:50 Anion Gap 8 MMOL/L (8-16) 09/14/18 05:50 BUN 8 mg/dL (7-18) 09/14/18 05:50 Creatinine 0.8 mg/dL (0.55-1.3) 09/14/18 05:50 Creat Clearance w eGFR 105.01 (>60) 09/14/18 05:50 Random Glucose 91 mg/dL (74-106) 09/14/18 05:50 Calcium 8.6 mg/dL (8.5-10.1) 09/14/18 05:50 Total Bilirubin 0.4 mg/dL (0.2-1) 09/14/18 05:50 AST 19 U/L (15-37) 09/14/18 05:50 ALT 21 U/L (13-61) 09/14/18 05:50 Alkaline Phosphatase 67 U/L (45-117) 09/14/18 05:50 Total Protein 6.9 g/dl (6.4-8.2) 09/14/18 05:50 Albumin 3.7 g/dl (3.4-5.0) 09/14/18 05:50 RPR Titer Nonreactive (NONREACTIVE) 09/14/18 05:50 HIV 1&2 Antibody Screen Negative 09/13/18 12:00 HIV P24 Antigen Negative 09/13/18 12:00 lab noted Assessment: 09/16/18 10:16 mild withdrawal sx Plan: continue detox
[2018-09-16] MEDS: NICOTINE 21 MG/24 HOURS TOPICAL PATCH TD SCH (10:19)
[2018-09-16] MEDS: METHOCARBAMOL 500 MG TABLET PO PRN ×2 (13:22→20:57)
[2018-09-16] MEDS: THIAMINE HCL 100 MG TABLET (FP) PO SCH (22:18)
[2018-09-16] MEDS: MIRTAZAPINE 30 MG TABLET (FP) PO SCH (22:19)
[2018-09-17] MEDS: chlordiazePOXIDE HCL 10 MG CAPSULE PO SCH (05:31)
[2018-09-17] MEDS: hydrOXYzine PAMOATE 50 MG CAPSULE (FP) PO SCH (05:31)
[2018-09-17] MEDS: VENLAFAXINE HCL 75 MG TABLET PO SCH (07:37)
[2018-09-17] MEDS: levETIRAcetam 500 MG TABLET (FP) PO SCH (09:03)
[2018-09-17] MEDS: NAPROXEN 375 MG TABLET (FP) PO SCH (09:04)
[2018-09-17 09:16] VITALS: BP 104/64; PULSE 83; TEMP 97
--- NOTE | 2018-09-17 16:20 | DS ---
[facility] Detox Discharge Summary Admission Date: 09/13/18 Discharge Date: 09/17/18 - History Present History: Alcohol Dependence Additional Comments: 43 years old male admitted on 09/13/18 for alcohol withdrawal stabilization completed detox regimen [facility] - Physical Exam Results Vital Signs: Vital Signs Temperature 97.0 F L 09/17/18 09:15 Pulse Rate 83 09/17/18 09:15 Respiratory Rate 17 09/17/18 09:15 Blood Pressure 104/64 09/17/18 09:15 O2 Sat by Pulse Oximetry (%) Pertinent Admission Physical Exam Findings: alcohol withdrawal sx Laboratory Last Values WBC 8.6 K/mm3 (4.0-10.0) 09/14/18 05:50 RBC 4.16 M/mm3 (4.00-5.60) 09/14/18 05:50 Hgb 12.8 GM/dL (11.7-16.9) 09/14/18 05:50 Hct 37.5 % (35.4-49) 09/14/18 05:50 MCV 90.1 fl (80-96) 09/14/18 05:50 MCH 30.9 pg (25.7-33.7) 09/14/18 05:50 MCHC 34.3 g/dl (32.0-35.9) 09/14/18 05:50 RDW 14.1 % (11.9-15.9) 09/14/18 05:50 Plt Count 351 K/MM3 (134-434) 09/14/18 05:50 MPV 8.1 fl (7.5-11.1) 09/14/18 05:50 Sodium 139 mmol/L (136-145) 09/14/18 05:50 Potassium 3.9 mmol/L (3.5-5.1) 09/14/18 05:50 Chloride 108 mmol/L (98-107) H 09/14/18 05:50 Carbon Dioxide 23 mmol/L (21-32) 09/14/18 05:50 Anion Gap 8 MMOL/L (8-16) 09/14/18 05:50 BUN 8 mg/dL (7-18) 09/14/18 05:50 Creatinine 0.8 mg/dL (0.55-1.3) 09/14/18 05:50 Creat Clearance w eGFR 105.01 (>60) 09/14/18 05:50 Random Glucose 91 mg/dL (74-106) 09/14/18 05:50 Calcium 8.6 mg/dL (8.5-10.1) 09/14/18 05:50 Total Bilirubin 0.4 mg/dL (0.2-1) 09/14/18 05:50 AST 19 U/L (15-37) 09/14/18 05:50 ALT 21 U/L (13-61) 09/14/18 05:50 Alkaline Phosphatase 67 U/L (45-117) 09/14/18 05:50 Total Protein 6.9 g/dl (6.4-8.2) 09/14/18 05:50 Albumin 3.7 g/dl (3.4-5.0) 09/14/18 05:50 RPR Titer Nonreactive (NONREACTIVE) 09/14/18 05:50 HIV 1&2 Antibody Screen Negative 09/13/18 12:00 HIV P24 Antigen Negative 09/13/18 12:00 lab noted - Treatment Hospital Course: Detox Protocol Followed, Detoxed Safely, Responded well, Discharged Condition Good, Rehab Referral Accepted Patient has Accepted a Rehab Referral to: [facility] - Medication Discharge Medications: Ambulatory Orders Mirtazapine [Remeron -] 15 mg PO HS 02/07/17 Ibuprofen [Ibu] 800 mg PO TID PRN 04/27/18 Venlafaxine HCl [Effexor -] 75 mg PO DAILY 04/27/18 Venlafaxine HCl ER [Effexor Xr -] 150 mg PO DAILY@199909/13/18 Venlafaxine HCl [Effexor -] 150 mg PO HS 09/13/18 hydrOXYzine PAMOATE [Vistaril -] 50 mg PO TID 09/13/18 Albuterol Sulfate Inhaler - [Ventolin HFA Inhaler -] 2 inh PO Q4H PRN #1 inhaler 09/14/18 levETIRAcetam [Keppra -] 1,000 mg PO BID 30 Days #60 tablet 09/14/18 - Diagnosis (1) Alcohol dependence with uncomplicated withdrawal Status: Acute (2) Weight loss Status: Acute (3) Asthma Status: Chronic Qualifiers: Asthma severity: mild Asthma persistence: intermittent Asthma complication type: uncomplicated Qualified Code(s): J45.20 - Mild intermittent asthma, uncomplicated (4) Nicotine dependence Status: Acute Qualifiers: Nicotine product type: cigarettes Substance use status: in withdrawal Qualified Code(s): F17.213 - Nicotine dependence, cigarettes, with withdrawal (5) Seizure Status: Chronic - AMA Did Patient Leave Against Medical Advice: No
== END 2018-09-17 10:00 | disposition home or self-care (01) | DRG 775 ==
LOC: YASAS 10:55 → Y3N 12:02
PROVIDERS: ADMIT Surgery; ATTEND Surgery
PROC: HZ2ZZZZ Detoxification Services for Substance Abuse Treatment (ICD-10-PCS; principal; 2018-09-13)
DX: F10.230 Alcohol dependence with withdrawal, uncomplicated (principal); F17.210 Nicotine dependence, cigarettes, uncomplicated; F41.0 Panic disorder [episodic paroxysmal anxiety]; F41.8 Other specified anxiety disorders; J45.20 Mild intermittent asthma, uncomplicated; G40.509 Epileptic seizures related to external causes, not intractable, without status epilepticus; G47.00 Insomnia, unspecified; R55 Syncope and collapse; R20.3 Hyperesthesia; R63.4 Abnormal weight loss; Z68.1 Body mass index [BMI] 19.9 or less, adult
CPT/HCPCS: 36415; 80053; 85027; 86593; 87389; Q0162

== ENCOUNTER 2019-01-16 11:04 | Inpatient (IN) | payer OTHER ==
[2019-01-16 14:50] VITALS: BMI 18.7
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
[2019-01-16] MEDS ORDERED: chlordiazePOXIDE HCL 25 MG CAPSULE PO PRN (18:35)
[2019-01-16] MEDS ORDERED: IBUPROFEN 400 MG TABLET (FP) PO PRN (18:35)
[2019-01-16] MEDS ORDERED: MELATONIN 5 MG TABLETS PO PRN (18:35)
[2019-01-16] MEDS ORDERED: BISMUTH SUBSALICYLATE 524 MG/30 ML UD PO PRN (18:35)
[2019-01-16] MEDS ORDERED: MAGNESIUM HYDROX 2400MG/30ML ORAL SUSPENSION 30 ML CUP PO PRN (18:35)
[2019-01-16] MEDS ORDERED: ACETAMINOPHEN 325 MG TABLET (FP) PO PRN ×2 (18:35)
[2019-01-16] MEDS ORDERED: METHOCARBAMOL 500 MG TABLET PO PRN (18:35)
[2019-01-16] MEDS ORDERED: MENTHOL/PHENOL 1 EACH UD MM PRN (18:35)
[2019-01-16] MEDS ORDERED: MAGNESIUM CITRATE 300 ML BOTTLE PO PRN (18:35)
[2019-01-16] MEDS ORDERED: MAG HYDROX/AL HYDROX/SIMETH 30 ML UNIT-DOSE CUP PO PRN (18:35)
[2019-01-16] MEDS ORDERED: ALBUTEROL SO4 8 GM HFA INHALER IH PRN (18:38)
[2019-01-16] MEDS: NICOTINE 14 MG/24 HOURS TOPICAL PATCH TD SCH (19:36)
[2019-01-16] MEDS ORDERED: THIAMINE HCL 100 MG TABLET (FP) PO SCH (22:00)
[2019-01-16] MEDS: levETIRAcetam 500 MG TABLET (FP) PO SCH (22:48)
[2019-01-16] MEDS: chlordiazePOXIDE HCL 25 MG CAPSULE PO SCH (22:49)
[2019-01-17] MEDS: chlordiazePOXIDE HCL 25 MG CAPSULE PO SCH ×2 (05:46→10:13)
[2019-01-17 08:40] VITALS: TEMP 97.5
[2019-01-17 09:48] VITALS: BP 106/74; PULSE 83
[2019-01-17] MEDS ORDERED: ONDANSETRON *ODT* 4 MG TABLET SL PRN (09:51)
[2019-01-17] MEDS ORDERED: PRENATAL VITAMINS W/ FOLIC ACID TABLET (FP) PO SCH (10:00)
[2019-01-17] MEDS: NICOTINE 14 MG/24 HOURS TOPICAL PATCH TD SCH (10:13)
[2019-01-17] MEDS: levETIRAcetam 500 MG TABLET (FP) PO SCH (10:13)
[2019-01-17 10:26] LABS: HEMATOCRIT 43.8 % (35.4-49); MCH 31.4 pg (25.7-33.7); MCHC 34.3 g/dl (32.0-35.9); MEAN CELL VOLUME 91.3 fl (80-96); MEAN PLT VOLUME 7.5 fl (7.5-11.1); RDW 15.3 % (11.9-15.9); WHITE BLOOD COUNT 6.5 K/mm3 (4.0-10.0)
[2019-01-17 10:40] LABS: PLATELET COUNT 366 K/MM3 (134-434)
[2019-01-17 10:41] LABS: ALBUMIN 3.9 g/dl (3.4-5.0); BILIRUBIN,TOTAL 0.8 mg/dL (0.2-1); BLOOD UREA NITROGEN 7.1 mg/dL (7-18); CALCIUM 9.3 mg/dL (8.5-10.1); POTASSIUM 4.9 mmol/L (3.5-5.1); TOT PROT 7.4 g/dl (6.4-8.2)
--- NOTE | 2019-01-17 11:17 | CONSULT ---
[facility] Psychiatric Consult - Data Date of interview: 01/17/19 Admission source: Self-referred Identifying data: Mr Aquino is a 43 years old single male, unemployed with no source of income, homeless seeking dettox treatment for alcohol Substance Abuse History: Reports history of alcohol use. Refer to addiction counselor's summary for further information Medical History: Significant for bronchial asthma and seizure disorder. Smokes 1.5 ppd Psychiatric History: Patient is well known to this facility from multiple previous admission. He was most recently admitted here in 2018. Historical narrative remains consistent. He reports that his first psychiatric contact was at age 17 when he was diagnosed with Anxiety Disorder and started on psychotropic medications. Reports that over the years, he has seen different psychiatrist and tried on different medications including Paxil, Prozac, Lexapro , Buspar, Valium etc. Reports that his most recent outpatient psychiatric treatment was at [facility]. He denies receiving outpatient psychiatric treament at present. However, received psychiatric treatment through his admissions to substance abuse inpatient and residential treatment. During his most recent admission in this facility, he saw MISTY Quiroz on 09/14/18 and he was prescribed Effexor 75 mg/tid and Remeron 15 mg/hs. Told global technical writer that foolowing his discharge here, he was at [facility] in December 2018 and he was prescribed Buspar 10 mg/tid, Vistaril 50 mg/tid in addition to Effexor and Remeron. Denies previous suicidal attempt. Mental Status Exam - Mental Status Exam Alert and Oriented to: Time, Place, Person Cognitive Function: Fair Patient Appearance: Well Groomed Mood: Anxious Affect: Mood Congruent Patient Behavior: Cooperative Speech Pattern: Clear Voice Loudness: Normal Thought Process: Intact, Goal Oriented Thought Disorder: Not Present Hallucinations: Denies Suicidal Ideation: Denies Homicidal Ideation: Denies Insight/Judgement: Fair Sleep: Poorly Appetite: Good Muscle strength/Tone: Normal Gait/Station: Normal Psychiatric Findings - Problem List ([place] 1, 2,3) (1) Anxiety disorder Current Visit: Yes Status: Chronic (2) Panic disorder Current Visit: No Status: Ruled-out Comment: As per existing records and self-report. (3) Alcohol-induced anxiety disorder Current Visit: Yes Status: Acute (4) Alcohol-induced sleep disorder Current Visit: Yes Status: Acute (5) Alcohol dependence with uncomplicated withdrawal Current Visit: No Status: Acute (6) Nicotine dependence Current Visit: No Status: Chronic Qualifiers: Nicotine product type: cigarettes Substance use status: in withdrawal Qualified Code(s): F17.213 - Nicotine dependence, cigarettes, with withdrawal (7) Asthma Current Visit: No Status: Chronic Qualifiers: Asthma severity: mild Asthma persistence: intermittent Asthma complication type: uncomplicated Qualified Code(s): J45.20 - Mild intermittent asthma, uncomplicated (8) Seizure Current Visit: No Status: Chronic - Initial Treatment Plan Initial Treatment Plan: 1) Continue Buspar 10 mg po TID and Remeron 15 mg po HS. 2) Start Effexor XR 225 mgpo daily, Vistaril 50 mg po Q 4hrs prn for anxiety. 3) Continue inpatient detoxification
--- NOTE | 2019-01-17 11:17 | PN ---
S CIWA - CIWA Score Nausea/Vomitin-Mild Nausea/No Vomiting Muscle Tremors: 4-Moderate,w/Arms Extend Anxiety: 4-Mod. Anxious/Guarded Agitation: 4-Moderately Restless Paroxysmal Sweats: 3 Orientation: 0-Oriented Tacttile Disturbances: 0-None Auditory Disturbances: 0-None Visual Disturbances: 0-None Headache: 0-None Present CIWA-Ar Total Score: 16 BHS Progress Note (SOAP) Subjective: nausea sweats shakes interrupted sleep body aches Objective: 01/17/19 11:15 Vital Signs Temperature 97.5 F L 01/17/19 09:48 Pulse Rate 83 01/17/19 09:48 Respiratory Rate 18 01/17/19 09:48 Blood Pressure 106/74 01/17/19 09:48 O2 Sat by Pulse Oximetry (%) Laboratory Tests 01/17/19 01/17/19 07:00 07:00 WBC 6.5 RBC 4.80 Hgb 15.0 Hct 43.8 D MCV 91.3 MCH 31.4 MCHC 34.3 RDW 15.3 Plt Count 366 MPV 7.5 Sodium 140 Potassium 4.9 Chloride 105 Carbon Dioxide 33 H Anion Gap 2 L BUN 7.1 Creatinine 1.0 Est GFR (CKD-EPI)AfAm 105.62 Est GFR (CKD-EPI)NonAf 91.13 Random Glucose 95 Calcium 9.3 Total Bilirubin 0.8 AST 21 ALT 22 Alkaline Phosphatase 90 Total Protein 7.4 Albumin 3.9 labs noted aaox3 ambulating no acute distress Assessment: 01/17/19 11:16 withdrawal sx Plan: continue detox increase fluids maycol rojas prn
[2019-01-17] MEDS ORDERED: hydrOXYzine PAMOATE 50 MG CAPSULE (FP) PO PRN (11:20)
[2019-01-17] MEDS ORDERED: VENLAFAXINE HCL 75 MG E.R. CAPSULES (FP) PO SCH (12:00)
[2019-01-17] MEDS ORDERED: NICOTINE 14 MG/24 HOURS TOPICAL PATCH TD SCH (12:29)
--- NOTE | 2019-01-17 13:34 | PN ---
[facility] Progress Note Note: pt arrived yesterday in withdrawals. pt c/o withdrawals and aggressive symptomatic management attempted however, pt in spite of extensive motivational counseling regarding the risk of relapse, seizures, DT's and or loss, pt chose to sign out AMA.
--- NOTE | 2019-01-17 13:38 | DS ---
[facility] Detox Discharge Summary Admission Date: 01/16/19 - History Present History: Alcohol Dependence - Physical Exam Results Vital Signs: Vital Signs Temperature 97.5 F L 01/17/19 09:48 Pulse Rate 83 01/17/19 09:48 Respiratory Rate 18 01/17/19 09:48 Blood Pressure 106/74 01/17/19 09:48 O2 Sat by Pulse Oximetry (%) Pertinent Admission Physical Exam Findings: pt arrived in withdrawals Laboratory Tests 01/17/19 01/17/19 01/17/19 07:00 07:00 07:00 WBC 6.5 RBC 4.80 Hgb 15.0 Hct 43.8 D MCV 91.3 MCH 31.4 MCHC 34.3 RDW 15.3 Plt Count 366 MPV 7.5 Sodium 140 Potassium 4.9 Chloride 105 Carbon Dioxide 33 H Anion Gap 2 L BUN 7.1 Creatinine 1.0 Est GFR (CKD-EPI)AfAm 105.62 Est GFR (CKD-EPI)NonAf 91.13 Random Glucose 95 Calcium 9.3 Total Bilirubin 0.8 AST 21 ALT 22 Alkaline Phosphatase 90 Total Protein 7.4 Albumin 3.9 RPR Titer Nonreactive aaox3 ambulating some shakes/sweats noted pt has dion to scalp of head. wound healing stage noted pt insisted on leaving d/t family issues and signed out AMA. - Treatment Patient has Accepted a Rehab Referral to: pt decline rehab - Medication Discharge Medications: Ambulatory Orders Mirtazapine [Remeron -] 15 mg PO HS 02/07/17 Venlafaxine HCl [Effexor -] 75 mg PO BID 04/27/18 hydrOXYzine PAMOATE [Vistaril -] 50 mg PO TID 09/13/18 Albuterol Sulfate Inhaler - [Ventolin HFA Inhaler -] 2 inh PO Q4H PRN #1 inhaler 09/14/18 levETIRAcetam [Keppra -] 1,000 mg PO BID 30 Days #60 tablet 09/14/18 Buspirone HCl [Buspar -] 10 mg PO TID 01/16/19 - Diagnosis (1) Alcohol dependence with uncomplicated withdrawal Status: Chronic (2) Alcohol-induced anxiety disorder Status: Acute (3) Alcohol-induced sleep disorder Status: Acute (4) Sensitive skin Status: Acute (5) Syncope Status: Acute (6) Anxiety disorder Status: Chronic (7) Asthma Status: Chronic Qualifiers: Asthma severity: mild Asthma persistence: intermittent Asthma complication type: uncomplicated Qualified Code(s): J45.20 - Mild intermittent asthma, uncomplicated (8) Insomnia Status: Chronic (9) MDD (major depressive disorder) Status: Chronic (10) Nicotine dependence Status: Chronic Qualifiers: Nicotine product type: cigarettes Substance use status: uncomplicated Qualified Code(s): F17.210 - Nicotine dependence, cigarettes, uncomplicated (11) Panic disorder Status: Chronic (12) Alcohol withdrawal seizure Status: Suspected Qualifiers: Complication of substance-induced condition: uncomplicated Qualified Code(s ): F10.230 - Alcohol dependence with withdrawal, uncomplicated (13) Panic disorder Status: Ruled-out - AMA Did Patient Leave Against Medical Advice: Yes (going home)
[2019-01-17] MEDS ORDERED: busPIRone HCL 10 MG TABLET (FP) PO SCH ×2 (14:00)
[2019-01-17] MEDS ORDERED: MIRTAZAPINE 15 MG TABLET (FP) PO SCH (22:00)
[2019-01-18] MEDS ORDERED: chlordiazePOXIDE HCL 25 MG CAPSULE PO SCH (05:00)
[2019-01-19] MEDS ORDERED: chlordiazePOXIDE HCL 10 MG CAPSULE PO PRN
[2019-01-19] MEDS ORDERED: chlordiazePOXIDE HCL 10 MG CAPSULE PO SCH (05:00)
[2019-01-20] MEDS ORDERED: chlordiazePOXIDE HCL 10 MG CAPSULE PO SCH (05:00)
[2019-01-21] MEDS ORDERED: chlordiazePOXIDE HCL 10 MG CAPSULE PO ONE (05:00)
== END 2019-01-17 12:56 | disposition left against medical advice (07) | DRG 770 ==
LOC: YASAS 11:04 → Y6N 18:59
PROVIDERS: ADMIT Surgery; ATTEND Surgery
PROC: HZ2ZZZZ Detoxification Services for Substance Abuse Treatment (ICD-10-PCS; principal; 2019-01-16)
DX: F10.230 Alcohol dependence with withdrawal, uncomplicated (principal); F10.280 Alcohol dependence with alcohol-induced anxiety disorder; F10.282 Alcohol dependence with alcohol-induced sleep disorder; F41.8 Other specified anxiety disorders; F41.0 Panic disorder [episodic paroxysmal anxiety]; F32.9 Major depressive disorder, single episode, unspecified; J45.909 Unspecified asthma, uncomplicated; G47.00 Insomnia, unspecified; R55 Syncope and collapse; R20.3 Hyperesthesia; Z86.69 Personal history of other diseases of the nervous system and sense organs
CPT/HCPCS: 36415; 80053; 85027; 86593; Q0162

== ENCOUNTER 2019-01-22 15:57 | Inpatient (IN) | payer OTHER ==
[2019-01-22 18:15] VITALS: BMI 18.8
--- NOTE | 2019-01-22 20:12 | HP ---
"CIWA Score - Admission Criteria OASAS Guidelines: Admission for Medically Managed Detox: Requires at least one of the followin. CIWA greater than 12 2. Seizures within the past 24 hours 3. Delirium tremens within the past 24 hours 4. Hallucinations within the past 24 hours 5. Acute intervention needed for co occurring medical disorder 6. Acute intervention needed for co occurring psychiatric disorder 7. Severe withdrawal that cannot be handled at a lower level of care (continued vomiting, continued diarrhea, abnormal vital signs) requiring intravenous medication and/or fluids 8. Admission ROS [facility] Chief Complaint: rehab. Allergies/Adverse Reactions: Allergies Allergy/AdvReac Type Severity Reaction Status Date / Time diphenhydramine HCl Allergy Severe Difficulty Verified 01/16/19 14:40 [From Benadryl] Breathing History of Present Illness: 43 yo with recent alcohol detox which began at [facility](01/16-01/17) and was completed in-patient at [facility] (01/17 to 723). Presents today for rehab. Hx: alcohol related seizure: last 04/19 Alcohol use began at age 16. Was drinking 8 - 25 oz beers daily prior to detox. last drink was 01/16/19. Nicotine use began at age 14. Smokes 1.5 PPD. Longest period of sobriety 6 months - was in out-patient program, , and was on Campral PMHx: Seizures (last seizure 12/2018), Asthma (last exacerbation years ago); Weight loss, Sensitive skin EKG on 04/27/18 = w/ Sinus Tachycardia otherwise WNL. MHHx: Anxiety/Panic attacks; Denies depression. Denies thoughts of harming self or others. Search Terms: Will Aquino, 1975 Search Date: 01/22/2019 08:19:12 PM The Drug Utilization Report below displays all of the controlled substance prescriptions, if any, that your patient has filled in the last twelve months. The information displayed on this report is compiled from pharmacy submissions to the Department, and accurately reflects the information as submitted by the pharmacies. This report was requested by: Aleena Bobby | Reference #: [id number] There are no results for the search terms that you entered. Search Terms: Will Aquino, 1975 Search Date: 01/22/2019 08:19:44 PM States Searched: [place], [place], [place], [place], [place], [place], [place] The Drug Utilization Report below displays the controlled substance prescriptions, if any, that were dispensed in the indicated state(s). The information displayed on this report is compiled from requests submitted to other states' PMPs, and accurately reflects the information as returned by them. Blank farmer indicate data not provided by other state. This report was requested by: Aleena Bobby | Reference #: [id number] Exam Limitations: No Limitations - Ebola screening Have you traveled outside of the country in the last 21 days: No Have you had contact with anyone from an Ebola affected area: No Have you been sick,other than usual withdrawal symptoms: No (Denies recent exposure to measles) Do you have a fever: No - Review of Systems Constitutional: Changes in sleep (Trouble falling asleep - on meds) EENT: reports: Blurred Vision Respiratory: reports: No Symptoms reported Cardiac: reports: No Symptoms Reported GI: reports: No Symptoms Reported : reports: No Symptoms Reported Musculoskeletal: reports: No Symptoms Reported Integumentary: reports: No Symptoms Reported Neuro: reports: No Symptoms reported Endocrine: reports: No Symptoms Reported Hematology: reports: No Symptoms Reported Psychiatric: reports: Orientated x3, Agitated, Anxious (Denies thoughts of harming self or others.) Patient History - Patient Medical History Hx Anemia: No Hx Asthma: Yes (on albuterol inhaler) Hx Chronic Obstructive Pulmonary Disease (COPD): No Hx Cancer: No Hx Cardiac Disorders: No Hx Congestive Heart Failure: No Hx Hypertension: No Hx Hypercholesterolemia: No Hx Pacemaker: No HX Cerebrovascular Accident: No Hx Seizures: No Hx Dementia: No Hx Diabetes: No Hx Gastrointestinal Disorders: No Hx Liver Disease: No Hx Genitourinary Disorders: No Hx Sexually Transmitted Disorders: No Hx Renal Disease (ESRD): No Hx Thyroid Disease: No Hx Human Immunodeficiency Virus (HIV): No (last tested 07/20 negative) Hx Hepatitis C: No Hx Depression: Yes (anxiety,insomnia) Hx Suicide Attempt: No Hx Bipolar Disorder: No Hx Schizophrenia: No - Patient Surgical History Past Surgical History: No Hx Neurologic Surgery: No Hx Cataract Extraction: No Hx Cardiac Surgery: No Hx Lung Surgery: No Hx Breast Surgery: No Hx Breast Biopsy: No Hx Abdominal Surgery: No Hx Appendectomy: No Hx Cholecystectomy: No Hx Genitourinary Surgery: No Hx Section: No Hx Orthopedic Surgery: No Anesthesia Reaction: No - PPD History Previous Implant?: Yes Documented Results: Negative w/proof Implanted On Prior R Admission?: Yes Date: 04/29/18 Results: 0 mm PPD to be Administered?: No - Smoking Cessation Smoking history: Current every day smoker Have you smoked in the past 12 months: Yes Aproximately how many cigarettes per day: 30 Cigars Per Day: 0 Hx Chewing Tobacco Use: No Initiated information on smoking cessation: Yes 'Breaking Loose' booklet given: 01/22/19 - Substance & Tx. History Hx Alcohol Use: Yes Hx Substance Use: Yes Substance Use Type: Alcohol Hx Substance Use Treatment: Yes (detox, rehab, community support) - Substances abused Alcohol Substance route: Oral Frequency: Daily Amount used: 8OZ CANS OF BEER Age of first use: 16 Date of last use: 01/16/19 Family Disease History - Family Disease History Family Disease History: Diabetes: Grandparent, Heart Disease: Father ( [place]), [place]: Grandparent, Other: Father, Mother (alive, no med hx) Admission Physical Exam [facility] - Vital Signs Vital Signs: Vital Signs - 24 hr 01/22/19 17:55 Temperature 97.2 F L Pulse Rate 86 Respiratory 18 Rate Blood Pressure 118/77 - Physical General Appearance: Yes: Thin, Anxious HEENTM: Yes: EOMI (Nystagmus on lateral gaze), Hearing grossly Normal, Normocephalic, Normal Voice, MIGUEL A, Pharynx Normal Respiratory: Yes: Lungs Clear, Normal Breath Sounds, No Respiratory Distress Neck: Yes: No masses,lesions,Nodules, Supple Breast: Yes: Breast Exam Deferred Cardiology: Yes: Regular Rhythm, Regular Rate, S1, S2 Abdominal: Yes: Non Tender, Flat, Soft, Increased Bowel Sounds Genitourinary: Yes: Within Normal Limits Back: Yes: Normal Inspection Musculoskeletal: Yes: full range of Motion, Gait Steady Extremities: Yes: Normal Capillary Refill, Non-Tender, Tremors (Mild tremors of hands at rest and w/ arm elevation) Neurological: Yes: lead principal technical architect II-XII NML intact (Nystagmus on lateral gaze), Fully Oriented, Alert, Motor Strength 5/5 Integumentary: Yes: Normal Color, Warm Lymphatic: Yes: Within Normal Limits - Diagnostic (1) Alcohol use disorder, severe, in early remission Current Visit: Yes Status: Acute (2) History of asthma Current Visit: Yes Status: Acute (3) Thin build Current Visit: Yes Status: Acute (4) Nicotine dependence Current Visit: No Status: Chronic Qualifiers: Nicotine product type: cigarettes Substance use status: uncomplicated Qualified Code(s): F17.210 - Nicotine dependence, cigarettes, uncomplicated Cleared for Admission [facility] - Detox or Rehab Claeared for Rehab Admission: Yes Breathalyzer - Breathalyzer Breathalyzer: 0 Urine Drug Screen - Test Device Lot number: [id number] Expiration date: 10/30/20 - Control Is test valid?: Yes - Results Drug screen NEGATIVE: No Urine drug screen results: BZO-Benzodiazepines Inpatient Rehab Admission - Rehab Decision to Admit Inpatient rehab admission?: Yes - Initial Determination Are CD services needed?: Yes Free of communicable disease: Yes Not in need of hospitalization: Yes - Rehab Admission Criteria Previous failed treatment: Yes Poor recovery environment: Yes Comorbidities: No Lacks judgement: No Patient is meeting Inpatient Rehab admission criteria:: Yes"
[2019-01-22] MEDS ORDERED: IBUPROFEN 400 MG TABLET (FP) PO PRN (20:34)
[2019-01-22] MEDS ORDERED: LOPERAMIDE HCL 2 MG CAPSULE PO PRN (20:34)
[2019-01-22] MEDS ORDERED: MENTHOL/PHENOL 1 EACH UD MM PRN (20:34)
[2019-01-22] MEDS ORDERED: MAGNESIUM HYDROX 2400MG/30ML ORAL SUSPENSION 30 ML CUP PO PRN (20:34)
[2019-01-22] MEDS ORDERED: MAGNESIUM CITRATE 300 ML BOTTLE PO PRN (20:34)
[2019-01-22] MEDS ORDERED: P-EPHED 60MG/TRIPROLIDI 2.5MG TABLET PO PRN (20:34)
[2019-01-22] MEDS ORDERED: guaiFENesin 200 MG/10 ML 10 ML UNIT-DOSE CUPS PO PRN (20:34)
[2019-01-22] MEDS ORDERED: ACETAMINOPHEN 325 MG TABLET (FP) PO PRN (20:34)
[2019-01-22] MEDS ORDERED: NICOTINE POLACRILEX 4 MG GUM BUC PRN (20:34)
[2019-01-22] MEDS ORDERED: MAG HYDROX/AL HYDROX/SIMETH 30 ML UNIT-DOSE CUP PO PRN (20:34)
[2019-01-22] MEDS ORDERED: COLLOIDAL OATMEAL 1 BAR EACH TP PRN (20:35)
[2019-01-22] MEDS ORDERED: ALBUTEROL SO4 0.083% IH SOL 2.5 MG/3 ML VIAL.NEB. NEB PRN (20:38)
[2019-01-22] MEDS: THIAMINE HCL 100 MG TABLET (FP) PO SCH (21:49)
[2019-01-22] MEDS: hydrOXYzine PAMOATE 50 MG CAPSULE (FP) PO PRN (21:50)
[2019-01-22] MEDS: levETIRAcetam 500 MG TABLET (FP) PO SCH (21:52)
[2019-01-22] MEDS ORDERED: MELATONIN 5 MG TABLETS PO PRN (22:00)
[2019-01-23] MEDS: hydrOXYzine PAMOATE 50 MG CAPSULE (FP) PO PRN ×4 (01:55→19:18)
--- NOTE | 2019-01-23 07:55 | CONSULT ---
[facility] Psych[facility] Consult - Data Date of interview: 01/23/19 Admission source: Self-referred Identifying data: Mr Aquino is a 43 years old single male, unemployed with no source of income, homeless seeking dettox treatment for alcohol Substance Abuse History: Reports history of alcohol use. Refer to addiction counselor's summary for further information Medical History: Significant for bronchial asthma and seizure disorder. Smokes 1.5 ppd Psychiatric History: Patient is well known to this facility from multiple previous admission. He was most recently seen by signwriter on 01/17/19 while dmitted to detox Historical narrative remains consistent. He reports that his first psychiatric contact was at age 17 when he was diagnosed with Anxiety Disorder and started on psychotropic medications. Reports that over the years, he has seen different psychiatrist and tried on different medications including Paxil, Prozac, Lexapro, Buspar, Valium etc. Reports that his most recent outpatient psychiatric treatment was at [facility]. He denies receiving outpatient psychiatric treament at present. However, received psychiatric treatment through his admissions to substance abuse inpatient and residential treatment. During his most recent admission to detox in this facility on January 16, 2019, he saw signwriter and he was prescribed Effexor 75 mg/tid and Remeron 15 mg/hs. Told signwriter that foolowing his discharge here, he was at [facility] in December 2018 and he was prescribed Buspar 10 mg/tid , Effexor XR 225 mg/day and Remeron 30 mg/hs in addition to Vistaril 50 mg Q 4hrs prn for anxiety. After discharge from this facilty on 01/17/19, he said that he waent to [facility] for removal of suture on his scalp and he was admitted for that purpose. He was discharged from [facility] yesterday and came back for admission to inpatient rehab in this facility. Denies previous suicidal attempt. At present, denies anxiety symptoms , S/H ideations. However, reports sleeping poorly last night since his medication was not ordered. Physical/Sexual Abuse/Trauma History: Denies history of emotional, physical or sexual abuse as DV as relationship. No service Additional Comment: Reports history of 5-6 previous misdemeanor arrests. denies being on parole/probation currently Mental Status Exam - Mental Status Exam Alert and Oriented to: Time, Place, Person Cognitive Function: Fair Patient Appearance: Well Groomed Mood: Hopeful, Euthymic Patient Behavior: Cooperative Speech Pattern: Clear Voice Loudness: Normal Thought Process: Intact Thought Disorder: Not Present Hallucinations: Denies Suicidal Ideation: Denies Homicidal Ideation: Denies Insight/Judgement: Fair Sleep: Poorly Appetite: Good Muscle strength/Tone: Normal Gait/Station: Normal Psychiatric Findings - Problem List ([place] 1, 2,3) (1) Anxiety disorder Current Visit: Yes Status: Chronic (2) Panic disorder Current Visit: No Status: Ruled-out Comment: As per existing records and self-report. (3) Alcohol-induced sleep disorder Current Visit: No Status: Acute (4) Alcohol dependence Current Visit: Yes Status: Acute (5) Nicotine dependence Current Visit: No Status: Chronic Qualifiers: Nicotine product type: cigarettes Substance use status: uncomplicated Qualified Code(s): F17.210 - Nicotine dependence, cigarettes, uncomplicated (6) Asthma Current Visit: No Status: Chronic Qualifiers: Asthma severity: mild Asthma persistence: intermittent Asthma complication type: uncomplicated Qualified Code(s): J45.20 - Mild intermittent asthma, uncomplicated (7) Alcohol withdrawal seizure Current Visit: No Status: Resolved Qualifiers: Complication of substance-induced condition: uncomplicated Qualified Code(s ): F10.230 - Alcohol dependence with withdrawal, uncomplicated - Initial Treatment Plan Initial Treatment Plan: 1) Continue Effexor XR 225 mg po daily, Buspar 10 mg po TID and Remeron 30 mg po HS. 2) Continue inpatient rehabilitation
[2019-01-23] MEDS ORDERED: levETIRAcetam 250 MG TABLET (FP) PO ONE ×2 (09:03→20:38)
[2019-01-23] MEDS: PRENATAL VITAMINS W/ FOLIC ACID TABLET (FP) PO SCH (10:13)
[2019-01-23] MEDS: NICOTINE 21 MG/24 HOURS TOPICAL PATCH TD SCH (10:13)
[2019-01-23] MEDS: levETIRAcetam 500 MG TABLET (FP) PO SCH ×2 (10:13→21:10)
[2019-01-23] MEDS: VENLAFAXINE HCL 75 MG E.R. CAPSULES (FP) PO SCH (14:36)
[2019-01-23] MEDS: busPIRone HCL 10 MG TABLET (FP) PO SCH ×2 (14:36→22:14)
[2019-01-23] MEDS: THIAMINE HCL 100 MG TABLET (FP) PO SCH (21:09)
[2019-01-23] MEDS ORDERED: MIRTAZAPINE 30 MG TABLET (FP) PO SCH (22:00)
[2019-01-24] MEDS: busPIRone HCL 10 MG TABLET (FP) PO SCH (05:59)
[2019-01-24 06:58] VITALS: BP 109/86; PULSE 100; TEMP 97.7
[2019-01-24] MEDS ORDERED: levETIRAcetam 250 MG TABLET (FP) PO ONE (08:55)
[2019-01-24] MEDS: VENLAFAXINE HCL 75 MG E.R. CAPSULES (FP) PO SCH (10:22)
[2019-01-24] MEDS: hydrOXYzine PAMOATE 50 MG CAPSULE (FP) PO PRN (10:22)
[2019-01-24] MEDS: NICOTINE 21 MG/24 HOURS TOPICAL PATCH TD SCH (10:23)
[2019-01-24] MEDS: PRENATAL VITAMINS W/ FOLIC ACID TABLET (FP) PO SCH (10:23)
[2019-01-24] MEDS: levETIRAcetam 500 MG TABLET (FP) PO SCH (10:23)
--- NOTE | 2019-01-24 10:59 | PN ---
[facility] Progress Note (SOAP) Subjective: Patient requesting to leave today. HOSPITAL COURSE: Patient was admitted to rehab on 01/22 and is leaving today, 01/24 because he states that this program is not working for him and arranged on his own to go to [facility], where he has undergone rehab in the past. During his time here he met 1:1 with his counselor, had a session with the psychiatrist, and was adherent to the treatment plan and medication regimen. Objective: - Physical General Appearance: Yes: Thin, Appropriate HEENTM: Nystagmus on lateral gaze, Normocephalic, PERRLA, Pharynx Normal, mucous membranes pink Respiratory: Lungs Clear, No Respiratory Distress Neck: Supple Cardiology: Regular Rhythm, Regular Rate, S1, S2 Abdominal: Non Tender, Flat, Soft, +Bowel Sounds Back: spine aligned Musculoskeletal: full range of Motion, full weight bearing, Gait Steady Extremities: Brisk capillary Refill, no pedal edema Neurological: tank storage supervisor II-XII intact Fully Oriented, Alert, Motor Strength 5/5 Integumentary: Color consistent throughout trunk and extremities, clear, Warm, dry Lymphatic: no palpable lymph nodes 01/24/19 10:58 01/24/19 11:05 01/24/19 11:15 Vital Signs (72 hours) 01/22/19 01/22/19 01/22/19 17:55 21:02 22:00 Temperature 97.2 F L Pulse Rate 86 83 83 Respiratory 18 18 18 Rate Blood Pressure 118/77 121/83 121/83 01/23/19 01/23/19 01/24/19 00:30 03:30 00:30 Temperature Pulse Rate Respiratory 18 18 18 Rate Blood Pressure 01/24/19 01/24/19 03:30 06:57 Temperature 97.7 F Pulse Rate 100 H Respiratory 18 20 Rate Blood Pressure 109/86 Assessment: Medically stable for discharge Discharge Dx: ETOH dependence Asthma Panic Disorder Sensitive skin 01/24/19 11:14 Plan: On-going continuation of care: patient will go to [facility] today. Transportation arranged. Prescriptions transmitted to pharmacy.
== END 2019-01-24 11:10 | disposition left against medical advice (07) | DRG 770 ==
LOC: YASAS 15:57 → Y3W 21:02
PROVIDERS: ADMIT Neuromusculoskeletal Medicine & OMM; ATTEND Neuromusculoskeletal Medicine & OMM
PROC: HZ42ZZZ Group Counseling for Substance Abuse Treatment, Cognitive-Behavioral (ICD-10-PCS; principal; 2019-01-22)
DX: F10.20 Alcohol dependence, uncomplicated (principal); F10.282 Alcohol dependence with alcohol-induced sleep disorder; F17.210 Nicotine dependence, cigarettes, uncomplicated; F41.0 Panic disorder [episodic paroxysmal anxiety]; J45.909 Unspecified asthma, uncomplicated; G40.909 Epilepsy, unspecified, not intractable, without status epilepticus

== ENCOUNTER 2019-02-18 14:53 | Inpatient (IN) | payer OTHER ==
[2019-02-18 20:58] VITALS: BMI 19.0
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
[2019-02-18] MEDS ORDERED: ACETAMINOPHEN 325 MG TABLET (FP) PO PRN ×2 (22:06)
[2019-02-18] MEDS ORDERED: MAGNESIUM HYDROX 2400MG/30ML ORAL SUSPENSION 30 ML CUP PO PRN (22:06)
[2019-02-18] MEDS ORDERED: BISMUTH SUBSALICYLATE 524 MG/30 ML UD PO PRN (22:06)
[2019-02-18] MEDS ORDERED: hydrOXYzine PAMOATE 25 MG CAPSULE (FP) PO PRN (22:06)
[2019-02-18] MEDS ORDERED: MAGNESIUM CITRATE 300 ML BOTTLE PO PRN (22:06)
[2019-02-18] MEDS ORDERED: METHOCARBAMOL 500 MG TABLET PO PRN (22:06)
[2019-02-18] MEDS ORDERED: MENTHOL/PHENOL 1 EACH UD MM PRN (22:06)
[2019-02-18] MEDS ORDERED: NICOTINE POLACRILEX 2 MG GUM BUC PRN (22:06)
[2019-02-18] MEDS ORDERED: COLLOIDAL OATMEAL 1 BAR EACH TP PRN (22:13)
[2019-02-19] MEDS: chlordiazePOXIDE HCL 25 MG CAPSULE PO SCH ×5 (00:43→22:28)
[2019-02-19] MEDS: levETIRAcetam 500 MG TABLET (FP) PO SCH ×3 (00:44→22:28)
[2019-02-19] MEDS: MELATONIN 5 MG TABLETS PO PRN ×2 (00:44→22:25)
[2019-02-19] MEDS: VENLAFAXINE HCL 75 MG TABLET PO SCH ×4 (00:52→20:11)
[2019-02-19] MEDS: MAG HYDROX/AL HYDROX/SIMETH 30 ML UNIT-DOSE CUP PO PRN ×2 (06:43→13:17)
--- NOTE | 2019-02-19 08:41 | CONSULT ---
[facility] Psychiatric Consult - Data Date of interview: 02/19/19 Admission source: Self-referred Identifying data: Mr Aquino is a 43 years old single male, unemployed with no source of income, homeless seeking dettox treatment for alcohol Substance Abuse History: Reports history of alcohol use. Refer to addiction counselor's summary for further information Medical History: Significant for bronchial asthma and seizure disorder. Smokes 1 ppd Psychiatric History: Patient is well known to this facility from multiple previous admission. He was most recently seen by flex o writer operator on 01/23/19 while admitted to detox Historical narrative remains consistent. He reports that his first psychiatric contact was at age 17 when he was diagnosed with Anxiety Disorder and started on psychotropic medications. Reports that over the years, he has seen different psychiatrist and tried on different medications including Paxil, Prozac, Lexapro, Buspar, Valium etc. Reports that his most recent outpatient psychiatric treatment was at [facility]. He denies receiving outpatient psychiatric treament at present. However, received psychiatric treatment through his admissions to substance abuse inpatient and residential treatment. During his most recent admission to detox in this facility on December 2018, he saw flex o writer operator and he was prescribed Effexor XR 225 mg/day, Buspar 10 mg/tid and Remeron 15 mg/hs. Told flex o writer operator that foolowing his discharge from this facility, he was referred to [facility] for inpatient rehab, There he was prescribed Buspar 19 mg/tid and Remeron 30 mg/hs. This is confirmed by external medication history from [facility] pharmacy where 30 days supply of these medications prescribed by Dr Warren were filled on .Denies previous suicidal attempt. At present, denies anxiety symptoms, S/ H ideations. However, reports sleeping poorly Physical/Sexual Abuse/Trauma History: Denies history of emotional, physical or sexual abuse as DV as relationship. No service Additional Comment: Reports history of 5-6 previous misdemeanor arrests. denies being on parole/probation currently Mental Status Exam - Mental Status Exam Alert and Oriented to: Time, Place, Person Cognitive Function: Fair Patient Appearance: Well Groomed Mood: Hopeful, Euthymic Patient Behavior: Cooperative Speech Pattern: Clear Voice Loudness: Normal Thought Process: Intact, Goal Oriented Thought Disorder: Not Present Hallucinations: Denies Suicidal Ideation: Denies Homicidal Ideation: Denies Insight/Judgement: Poor Sleep: Poorly Appetite: Good Muscle strength/Tone: Normal Gait/Station: Normal Psychiatric Findings - Problem List ([place] 1, 2,3) (1) Anxiety Current Visit: Yes Status: Chronic (2) Panic disorder Current Visit: No Status: Ruled-out (3) Alcohol-induced sleep disorder Current Visit: No Status: Acute (4) Alcohol dependence with uncomplicated withdrawal Current Visit: No Status: Acute (5) Nicotine dependence Current Visit: Yes Status: Chronic Qualifiers: Nicotine product type: cigarettes Substance use status: uncomplicated Qualified Code(s): F17.210 - Nicotine dependence, cigarettes, uncomplicated (6) Asthma Current Visit: Yes Status: Chronic Qualifiers: Asthma severity: mild Asthma persistence: intermittent Asthma complication type: uncomplicated Qualified Code(s): J45.20 - Mild intermittent asthma, uncomplicated - Initial Treatment Plan Initial Treatment Plan: 1) Continue Buspar 10 mg po TID and Remeron 30 mg po HS. 2) Continue inpatient detoxification
[2019-02-19] MEDS: PRENATAL VITAMINS W/ FOLIC ACID TABLET (FP) PO SCH (09:11)
[2019-02-19] MEDS ORDERED: NICOTINE 14 MG/24 HOURS TOPICAL PATCH TD SCH (10:00)
[2019-02-19] MEDS ORDERED: DOXYCYCLINE HYCLATE 100 MG CAPSULE PO SCH (10:00)
[2019-02-19] MEDS: DOXYCYCLINE HYCLATE 100 MG TABLET PO SCH ×2 (10:26→20:32)
[2019-02-19] MEDS: NICOTINE 21 MG/24 HOURS TOPICAL PATCH TD SCH (10:27)
[2019-02-19] MEDS: ONDANSETRON *ODT* 4 MG TABLET SL PRN ×2 (10:50→18:07)
[2019-02-19 11:13] LABS: ALBUMIN 3.4 g/dl (3.4-5.0); BILIRUBIN,TOTAL 0.5 mg/dL (0.2-1); BLOOD UREA NITROGEN 4.6 mg/dL (7-18); CALCIUM 9.2 mg/dL (8.5-10.1); CREATININE 0.8 mg/dL (0.55-1.3); HEMATOCRIT 36.6 % (35.4-49); HEMOGLOBIN 12.5 GM/dL (11.7-16.9); MCH 31.4 pg (25.7-33.7); MCHC 34.1 g/dl (32.0-35.9); MEAN CELL VOLUME 92.1 fl (80-96); MEAN PLT VOLUME 8.1 fl (7.5-11.1); PLATELET COUNT 351 K/MM3 (134-434); POTASSIUM 4.1 mmol/L (3.5-5.1); RBC 3.97 M/mm3 (4.00-5.60); RDW 13.7 % (11.9-15.9); TOT PROT 6.3 g/dl (6.4-8.2); WHITE BLOOD COUNT 8.8 K/mm3 (4.0-10.0)
--- NOTE | 2019-02-19 11:56 | PN ---
S CIWA - CIWA Score Nausea/Vomitin Muscle Tremors: 2 Anxiety: 2 Agitation: 3 Paroxysmal Sweats: No Perspiration Orientation: 0-Oriented Tacttile Disturbances: 1-Very Mild Itch/Numbness Auditory Disturbances: 0-None Visual Disturbances: 0-None Headache: 2-Mild CIWA-Ar Total Score: 12 S Progress Note (SOAP) Subjective: alert,irritable,anxious,interrupted sleep,tremor Objective: 02/19/19 11:53 Vital Signs Temperature 98.6 F 02/19/19 09:30 Pulse Rate 93 H 02/19/19 09:30 Respiratory Rate 18 02/19/19 09:30 Blood Pressure 120/69 02/19/19 09:30 O2 Sat by Pulse Oximetry (%) Laboratory Last Values WBC 8.8 K/mm3 (4.0-10.0) 02/19/19 07:50 RBC 3.97 M/mm3 (4.00-5.60) L 02/19/19 07:50 Hgb 12.5 GM/dL (11.7-16.9) 02/19/19 07:50 Hct 36.6 % (35.4-49) D 02/19/19 07:50 MCV 92.1 fl (80-96) 02/19/19 07:50 MCH 31.4 pg (25.7-33.7) 02/19/19 07:50 MCHC 34.1 g/dl (32.0-35.9) 02/19/19 07:50 RDW 13.7 % (11.9-15.9) D 02/19/19 07:50 Plt Count 351 K/MM3 (134-434) 02/19/19 07:50 MPV 8.1 fl (7.5-11.1) 02/19/19 07:50 Sodium 141 mmol/L (136-145) 02/19/19 07:50 Potassium 4.1 mmol/L (3.5-5.1) 02/19/19 07:50 Chloride 106 mmol/L (98-107) 02/19/19 07:50 Carbon Dioxide 27 mmol/L (21-32) 02/19/19 07:50 Anion Gap 9 MMOL/L (8-16) 02/19/19 07:50 BUN 4.6 mg/dL (7-18) L 02/19/19 07:50 Creatinine 0.8 mg/dL (0.55-1.3) 02/19/19 07:50 Est GFR (CKD-EPI)AfAm 125.92 02/19/19 07:50 Est GFR (CKD-EPI)NonAf 108.65 02/19/19 07:50 Random Glucose 115 mg/dL (74-106) H 02/19/19 07:50 Calcium 9.2 mg/dL (8.5-10.1) 02/19/19 07:50 Total Bilirubin 0.5 mg/dL (0.2-1) 02/19/19 07:50 AST 55 U/L (15-37) H 02/19/19 07:50 ALT 37 U/L (13-61) 02/19/19 07:50 Alkaline Phosphatase 79 U/L (45-117) 02/19/19 07:50 Total Protein 6.3 g/dl (6.4-8.2) L 02/19/19 07:50 Albumin 3.4 g/dl (3.4-5.0) 02/19/19 07:50 Assessment: 02/19/19 11:54 withdrawal symptom Plan: continue detox librium regimen,glucose 115,ast 55,fasting bgm in am
[2019-02-19] MEDS: busPIRone HCL 10 MG TABLET (FP) PO SCH ×2 (13:04→22:28)
[2019-02-19] MEDS: chlordiazePOXIDE HCL 25 MG CAPSULE PO PRN ×2 (14:35→20:11)
[2019-02-19] MEDS: THIAMINE HCL 100 MG TABLET (FP) PO SCH (22:26)
[2019-02-19] MEDS: MIRTAZAPINE 30 MG TABLET (FP) PO SCH (22:28)
[2019-02-20] MEDS: chlordiazePOXIDE HCL 25 MG CAPSULE PO SCH ×4 (06:36→22:04)
[2019-02-20] MEDS: VENLAFAXINE HCL 75 MG TABLET PO SCH ×3 (07:00→17:15)
[2019-02-20] MEDS: NICOTINE 21 MG/24 HOURS TOPICAL PATCH TD SCH (10:11)
[2019-02-20] MEDS: levETIRAcetam 500 MG TABLET (FP) PO SCH ×2 (10:12→22:03)
[2019-02-20] MEDS: PRENATAL VITAMINS W/ FOLIC ACID TABLET (FP) PO SCH (10:12)
[2019-02-20] MEDS: busPIRone HCL 10 MG TABLET (FP) PO SCH ×2 (10:12→22:04)
[2019-02-20] MEDS: MAG HYDROX/AL HYDROX/SIMETH 30 ML UNIT-DOSE CUP PO PRN (10:13)
[2019-02-20] MEDS: DOXYCYCLINE HYCLATE 100 MG TABLET PO SCH ×2 (10:13→18:40)
--- NOTE | 2019-02-20 13:40 | EKG ---
Test Reason : Blood Pressure : / mmHG Vent. Rate : 088 BPM Atrial Rate : 088 BPM P-R Int : 128 ms QRS Dur : 086 ms QT Int : 330 ms P-R-T Axes : 059 071 063 degrees QTc Int : 399 ms SINUS RHYTHM WITH MARKED SINUS ARRHYTHMIA OTHERWISE NORMAL ECG WHEN COMPARED WITH ECG OF 27-APR-2018 12:50, NO SIGNIFICANT CHANGE WAS FOUND Confirmed by RODRÍGUEZ STODDARD MD ([id number]) on 02/20/2019 1:40:32 PM Referred By: Confirmed By:RODRÍGUEZ STODDARD MD
[2019-02-20] MEDS: chlordiazePOXIDE HCL 25 MG CAPSULE PO PRN (14:06)
--- NOTE | 2019-02-20 16:06 | PN ---
S CIWA - CIWA Score Nausea/Vomitin (Stomach Cramping.) Muscle Tremors: 3 Anxiety: 3 Agitation: 2 Paroxysmal Sweats: No Perspiration Orientation: 0-Oriented Tacttile Disturbances: 0-None Auditory Disturbances: 2-Mild Harshness/Frighten Visual Disturbances: 0-None Headache: 0-None Present CIWA-Ar Total Score: 12 BHS Progress Note (SOAP) Subjective: Anxious, Interrupted Sleep, Tremors. Objective: PATIENT A & O X 3. IN NO ACUTE DISTRESS. 02/20/19 16:07 Vital Signs Temperature 98.2 F 02/20/19 13:39 Pulse Rate 76 02/20/19 13:39 Respiratory Rate 18 02/20/19 13:39 Blood Pressure 115/68 02/20/19 13:39 O2 Sat by Pulse Oximetry (%) Laboratory Tests 02/19/19 02/19/19 02/19/19 07:50 07:50 07:50 WBC 8.8 RBC 3.97 L Hgb 12.5 Hct 36.6 D MCV 92.1 MCH 31.4 MCHC 34.1 RDW 13.7 D Plt Count 351 MPV 8.1 Sodium 141 Potassium 4.1 Chloride 106 Carbon Dioxide 27 Anion Gap 9 BUN 4.6 L Creatinine 0.8 Est GFR (CKD-EPI)AfAm 125.92 Est GFR (CKD-EPI)NonAf 108.65 Random Glucose 115 H Fasting Glucose Calcium 9.2 Total Bilirubin 0.5 AST 55 H ALT 37 Alkaline Phosphatase 79 Total Protein 6.3 L Albumin 3.4 RPR Titer Nonreactive 02/20/19 07:00 WBC RBC Hgb Hct MCV MCH MCHC RDW Plt Count MPV Sodium Potassium Chloride Carbon Dioxide Anion Gap BUN Creatinine Est GFR (CKD-EPI)AfAm Est GFR (CKD-EPI)NonAf Random Glucose Fasting Glucose 103 Calcium Total Bilirubin AST ALT Alkaline Phosphatase Total Protein Albumin RPR Titer LABS NOTED. PATIENT HAS HAD ELEVATED AST LEVELS ON PREVIOUS ADMISSIONS. RESULTS OF DETOX ADMISSION QFT /TB AND OF HIB AB TESTS PENDING. RESULT OF FASTING GLUCOSE LEVEL DRAWN EARLIER TODAY NOTED (RESULT WITHIN NORMAL RANGE). 02/20/19 16:07 Assessment: 02/20/19 16:08 WITHDRAWAL SYMPTOMS. ELEVATED AST LEVEL. Plan: CONTINUE DETOX. INCREASE DAILY PO WATER INTAKE.
[2019-02-20] MEDS: IBUPROFEN 400 MG TABLET (FP) PO PRN ×2 (16:25→22:03)
[2019-02-20] MEDS: MIRTAZAPINE 30 MG TABLET (FP) PO SCH (22:03)
[2019-02-20] MEDS: THIAMINE HCL 100 MG TABLET (FP) PO SCH (22:04)
[2019-02-21] MEDS ORDERED: chlordiazePOXIDE HCL 10 MG CAPSULE PO PRN
[2019-02-21] MEDS: chlordiazePOXIDE HCL 10 MG CAPSULE PO SCH ×2 (06:30→10:25)
[2019-02-21] MEDS: VENLAFAXINE HCL 75 MG TABLET PO SCH (07:38)
[2019-02-21 09:31] VITALS: BP 108/59; PULSE 73; TEMP 97.5
[2019-02-21] MEDS: IBUPROFEN 400 MG TABLET (FP) PO PRN (10:24)
[2019-02-21] MEDS: levETIRAcetam 500 MG TABLET (FP) PO SCH (10:25)
[2019-02-21] MEDS: PRENATAL VITAMINS W/ FOLIC ACID TABLET (FP) PO SCH (10:25)
[2019-02-21] MEDS: DOXYCYCLINE HYCLATE 100 MG TABLET PO SCH (10:25)
[2019-02-21] MEDS: NICOTINE 21 MG/24 HOURS TOPICAL PATCH TD SCH (10:25)
[2019-02-21] MEDS: busPIRone HCL 10 MG TABLET (FP) PO SCH (10:25)
--- NOTE | 2019-02-21 10:57 | PN ---
S Progress Note Note: pt was admitted in withdrawals. pt c/o withdrawals s/s and aggressive symptomatic management attempted however, pt in spite of extensive motivational counseling regarding the risk of relapse, seizures, DT's and or loss, pt chose to sign out AMA.
--- NOTE | 2019-02-21 12:22 | DS ---
[facility] Detox Discharge Summary Admission Date: 02/18/19 - History Present History: Alcohol Dependence - Physical Exam Results Vital Signs: Vital Signs Temperature 97.5 F L 02/21/19 09:30 Pulse Rate 73 02/21/19 09:30 Respiratory Rate 20 02/21/19 09:30 Blood Pressure 108/59 L 02/21/19 09:30 O2 Sat by Pulse Oximetry (%) Pertinent Admission Physical Exam Findings: pt arrived in withdrawal sx Laboratory Tests 02/19/19 02/19/19 02/19/19 07:50 07:50 07:50 WBC 8.8 RBC 3.97 L Hgb 12.5 Hct 36.6 D MCV 92.1 MCH 31.4 MCHC 34.1 RDW 13.7 D Plt Count 351 MPV 8.1 Sodium 141 Potassium 4.1 Chloride 106 Carbon Dioxide 27 Anion Gap 9 BUN 4.6 L Creatinine 0.8 Est GFR (CKD-EPI)AfAm 125.92 Est GFR (CKD-EPI)NonAf 108.65 Random Glucose 115 H Fasting Glucose Calcium 9.2 Total Bilirubin 0.5 AST 55 H ALT 37 Alkaline Phosphatase 79 Total Protein 6.3 L Albumin 3.4 Levetiracetam RPR Titer Nonreactive 02/19/19 02/20/19 07:50 07:00 WBC RBC Hgb Hct MCV MCH MCHC RDW Plt Count MPV Sodium Potassium Chloride Carbon Dioxide Anion Gap BUN Creatinine Est GFR (CKD-EPI)AfAm Est GFR (CKD-EPI)NonAf Random Glucose Fasting Glucose 103 Calcium Total Bilirubin AST ALT Alkaline Phosphatase Total Protein Albumin Levetiracetam 13.9 RPR Titer aaox3 ambulating no acute distress - Treatment Hospital Course: Detox Protocol Followed, Detoxed Safely, Responded well, Discharged Condition Good, Rehab Referral Accepted Patient has Accepted a Rehab Referral to: referral provided - Medication Discharge Medications: Ambulatory Orders Mirtazapine [Remeron -] 30 mg PO HS 02/07/17 Venlafaxine HCl [Effexor -] 75 mg PO TID 04/27/18 hydrOXYzine PAMOATE [Vistaril -] 50 mg PO TID 09/13/18 Buspirone HCl [Buspar -] 10 mg PO BID 01/16/19 Folic Acid 1 mg PO DAILY #14 tablet 01/24/19 levETIRAcetam [Keppra -] 1,000 mg PO BID 30 Days #60 tablet 01/24/19 Acamprosate Calcium [Campral -] 666 mg PO TID 02/16/19 Doxycycline Monohydrate [Monodox] 100 mg PO Q12H 02/18/19 - Diagnosis (1) Alcohol dependence with uncomplicated withdrawal Status: Chronic (2) Alcohol-induced anxiety disorder Status: Acute (3) Alcohol-induced sleep disorder Status: Acute (4) History of asthma Status: Chronic (5) Alcohol withdrawal seizure Status: Suspected Qualifiers: Complication of substance-induced condition: with unspecified complication Qualified Code(s): F10.239 - Alcohol dependence with withdrawal, unspecified; R56.9 - Unspecified convulsions (6) Anxiety disorder Status: Chronic (7) Asthma Status: Chronic Qualifiers: Asthma severity: mild Asthma persistence: intermittent Asthma complication type: uncomplicated Qualified Code(s): J45.20 - Mild intermittent asthma, uncomplicated (8) Depression Status: Chronic Qualifiers: Depression Type: unspecified Qualified Code(s): F32.9 - Major depressive disorder, single episode, unspecified (9) Insomnia Status: Chronic (10) MDD (major depressive disorder) Status: Chronic (11) Nicotine dependence Status: Chronic Qualifiers: Nicotine product type: cigarettes Substance use status: uncomplicated Qualified Code(s): F17.210 - Nicotine dependence, cigarettes, uncomplicated - AMA Did Patient Leave Against Medical Advice: Yes
[2019-02-22] MEDS ORDERED: chlordiazePOXIDE HCL 10 MG CAPSULE PO SCH (05:00)
[2019-02-23] MEDS ORDERED: chlordiazePOXIDE HCL 10 MG CAPSULE PO ONE (05:00)
== END 2019-02-21 11:20 | disposition left against medical advice (07) | DRG 770 ==
LOC: YASAS 14:53 → Y6N 23:15
PROVIDERS: ADMIT Surgery; ATTEND Surgery
PROC: HZ2ZZZZ Detoxification Services for Substance Abuse Treatment (ICD-10-PCS; principal; 2019-02-18)
DX: F10.230 Alcohol dependence with withdrawal, uncomplicated (principal); F10.280 Alcohol dependence with alcohol-induced anxiety disorder; F10.282 Alcohol dependence with alcohol-induced sleep disorder; F17.210 Nicotine dependence, cigarettes, uncomplicated; F41.9 Anxiety disorder, unspecified; F32.9 Major depressive disorder, single episode, unspecified; F41.0 Panic disorder [episodic paroxysmal anxiety]; J45.20 Mild intermittent asthma, uncomplicated; G47.00 Insomnia, unspecified; R74.0 Nonspecific elevation of levels of transaminase and lactic acid dehydrogenase [LDH]; Z86.69 Personal history of other diseases of the nervous system and sense organs
CPT/HCPCS: 36415; 80053; 80177; 82947; 85027; 86480; 86593; 93005; 93010; Q0162

== ENCOUNTER 2019-03-26 15:06 | Inpatient (IN) | payer OTHER ==
--- NOTE | 2019-03-26 19:25 | HP ---
CIWA Score Nausea/Vomitin Muscle Tremors: 3 Anxiety: 4-Mod. Anxious/Guarded Agitation: 0-Normal Activity Paroxysmal Sweats: 2 Orientation: 0-Oriented Tacttile Disturbances: 0-None Auditory Disturbances: 0-None Visual Disturbances: 0-None Headache: 1-Very Mild CIWA-Ar Total Score: 13 - Admission Criteria OASAS Guidelines: Admission for Medically Managed Detox: Requires at least one of the followin. CIWA greater than 12 2. Seizures within the past 24 hours 3. Delirium tremens within the past 24 hours 4. Hallucinations within the past 24 hours 5. Acute intervention needed for co occurring medical disorder 6. Acute intervention needed for co occurring psychiatric disorder 7. Severe withdrawal that cannot be handled at a lower level of care (continued vomiting, continued diarrhea, abnormal vital signs) requiring intravenous medication and/or fluids 8. 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 Would like to quit because he wants to get a job and wants to rekindle relationship with his family. Last here for detox on 02/18 and completed it. Has been to detox and rehab multiple times, has left AMA from both detox and rehab in the past. Had an alcohol withdrawal seizure yesterday for which he went to [facility]. After discharge, they sent him here for detox. Alcohol use: Ten 25oz cans of beer a day, two 0.5 pints of ENJ, last drink this morning, has drunk to the point of blacking out in the past. Has had alcohol withdrawal seizures in the past > 5 times; started drinking heavily since he was 25. 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 Social: not , no children Living Situation: lives in a private house Surgery: never Allergies: benadryl (asthma acts up) CIWA 13 Exam Limitations: No Limitations - Ebola screening Have you traveled outside of the country in the last 21 days: No (N) Have you had contact with anyone from an Ebola affected area: No Do you have a fever: No - Review of Systems Constitutional: No Symptoms Reported, Loss of Appetite EENT: reports: No Symptoms Reported, Throat Pain Respiratory: reports: Cough, Wheezing Cardiac: reports: No Symptoms Reported GI: reports: Diarrhea, Nausea, Poor Appetite, Abdominal cramping : reports: No Symptoms Reported Musculoskeletal: reports: No Symptoms Reported Integumentary: reports: No Symptoms Reported Neuro: reports: No Symptoms reported, Paresthesia (L leg) Endocrine: reports: No Symptoms Reported Hematology: reports: No Symptoms Reported Psychiatric: reports: Judgement Intact, Mood/Affect Appropiate, Orientated x3, Depressed Patient History - Patient Medical History Hx Anemia: No Hx Asthma: Yes (on albuterol inhaler) Hx Chronic Obstructive Pulmonary Disease (COPD): No Hx Cancer: No Hx Cardiac Disorders: No Hx Congestive Heart Failure: No Hx Hypertension: No Hx Hypercholesterolemia: No Hx Pacemaker: No HX Cerebrovascular Accident: No Hx Seizures: No Hx Dementia: No Hx Diabetes: No Hx Gastrointestinal Disorders: No Hx Liver Disease: No Hx Genitourinary Disorders: No Hx Sexually Transmitted Disorders: No Hx Renal Disease (ESRD): No Hx Thyroid Disease: No Hx Human Immunodeficiency Virus (HIV): No (last tested 07/20 negative) Hx Hepatitis C: No Hx Depression: Yes Hx Suicide Attempt: No Hx Bipolar Disorder: No Hx Schizophrenia: No - Patient Surgical History Past Surgical History: No Hx Neurologic Surgery: No Hx Cataract Extraction: No Hx Cardiac Surgery: No Hx Lung Surgery: No Hx Breast Surgery: No Hx Breast Biopsy: No Hx Abdominal Surgery: No Hx Appendectomy: No Hx Cholecystectomy: No Hx Genitourinary Surgery: No Hx Section: No Hx Orthopedic Surgery: No Anesthesia Reaction: No - PPD History Date: 04/29/18 Results: 0 mm - Smoking Cessation Smoking history: Current every day smoker Have you smoked in the past 12 months: Yes Aproximately how many cigarettes per day: 20 Cigars Per Day: 0 Hx Chewing Tobacco Use: No Initiated information on smoking cessation: Yes 'Breaking Loose' booklet given: 03/26/19 - Substances abused Alcohol Substance route: Oral Frequency: Daily Amount used: 12 25oz CANS OF BEER Age of first use: 16 Date of last use: 03/25/19 Admission Physical Exam [facility] - Vital Signs Vital Signs: Vital Signs - 24 hr 03/26/19 18:49 Temperature 97.0 F L Pulse Rate 92 H Respiratory 16 Rate Blood Pressure 137/87 - Physical General Appearance: Yes: No Apparent Distress, Nourished, Appropriately Dressed HEENTM: Yes: Normocephalic, Normal Voice, Pharynx Normal Respiratory: Yes: Chest Non-Tender, Lungs Clear, Wheezing Neck: Yes: No masses,lesions,Nodules Breast: Yes: Within Normal Limits Cardiology: Yes: Regular Rhythm, Regular Rate Abdominal: Yes: Normal Bowel Sounds, Flat, Soft Genitourinary: Yes: Within Normal Limits Back: Yes: Normal Inspection Musculoskeletal: Yes: full range of Motion Extremities: Yes: Normal Capillary Refill, Normal Range of Motion, Non-Tender Neurological: Yes: molecular biologist II-XII NML intact, Fully Oriented, Alert, Other (minor weakness and sensory deficit in LLE) Integumentary: Yes: Normal Color, Dry, Warm - Diagnostic (1) Alcohol dependence with uncomplicated withdrawal Current Visit: No Status: Chronic (2) History of asthma Current Visit: No Status: Chronic Cleared for Admission [facility] - Detox or Rehab [facility] Level of Care: Medically Managed Breathalyzer - Breathalyzer Breathalyzer: 0.243 Urine Drug Screen - Test Device Lot number: [id number] Expiration date: 11/30/20 - Control Is test valid?: Yes - Results Drug screen NEGATIVE: No Urine drug screen results: BZO-Benzodiazepines Inpatient Rehab Admission - Rehab Decision to Admit Inpatient rehab admission?: No
[2019-03-26] MEDS ORDERED: ACETAMINOPHEN 325 MG TABLET (FP) PO PRN ×2 (19:37)
[2019-03-26] MEDS ORDERED: BISMUTH SUBSALICYLATE 524 MG/30 ML UD PO PRN (19:37)
[2019-03-26] MEDS ORDERED: METHOCARBAMOL 500 MG TABLET PO PRN (19:37)
[2019-03-26] MEDS ORDERED: MENTHOL/PHENOL 1 EACH UD MM PRN (19:37)
[2019-03-26] MEDS ORDERED: MAGNESIUM CITRATE 300 ML BOTTLE PO PRN (19:37)
[2019-03-26] MEDS ORDERED: MAGNESIUM HYDROX 2400MG/30ML ORAL SUSPENSION 30 ML CUP PO PRN (19:37)
[2019-03-26] MEDS ORDERED: MELATONIN 5 MG TABLETS PO PRN (19:37)
[2019-03-26] MEDS ORDERED: IBUPROFEN 400 MG TABLET (FP) PO PRN (19:37)
[2019-03-26] MEDS ORDERED: MAG HYDROX/AL HYDROX/SIMETH 30 ML UNIT-DOSE CUP PO PRN (19:37)
[2019-03-26] MEDS ORDERED: ALBUTEROL SO4 8 GM HFA INHALER IH PRN (19:44)
--- NOTE | 2019-03-26 19:50 | PN ---
Teaching Attending Note Name of Resident: Jaison Mariscal ATTENDING PHYSICIAN STATEMENT I saw and evaluated the patient. I reviewed the resident's note and discussed the case with the resident. I agree with the resident's findings and plan as documented. SUBJECTIVE: 43 yo with asthma, h/o seizure yesterday related to alcohol was seen at [facility], left this morning, referred here but continued to drink. DIANA-0.24 OBJECTIVE: Vital Signs - 24 hr 03/26/19 18:49 Temperature 97.0 F L Pulse Rate 92 H Respiratory 16 Rate Blood Pressure 137/87 sleepy ASSESSMENT AND PLAN: alcohol use disorder- librium detox protocol
[2019-03-26 20:04] VITALS: BMI 19.0
[2019-03-26] MEDS: hydrOXYzine PAMOATE 50 MG CAPSULE (FP) PO SCH (21:22)
[2019-03-26] MEDS: levETIRAcetam 500 MG TABLET (FP) PO SCH (21:22)
[2019-03-26] MEDS: busPIRone HCL 10 MG TABLET (FP) PO SCH (21:22)
[2019-03-26] MEDS: THIAMINE HCL 100 MG TABLET (FP) PO SCH (21:22)
[2019-03-26] MEDS: MIRTAZAPINE 15 MG TABLET (FP) PO SCH (21:23)
[2019-03-26] MEDS: chlordiazePOXIDE HCL 25 MG CAPSULE PO SCH ×2 (21:23→22:59)
[2019-03-26] MEDS: VENLAFAXINE HCL 75 MG TABLET PO SCH (22:59)
[2019-03-27] MEDS: chlordiazePOXIDE HCL 25 MG CAPSULE PO SCH ×4 (05:19→22:06)
[2019-03-27] MEDS: VENLAFAXINE HCL 75 MG TABLET PO SCH ×2 (05:19→13:19)
[2019-03-27] MEDS: hydrOXYzine PAMOATE 50 MG CAPSULE (FP) PO SCH ×3 (07:19→22:06)
--- NOTE | 2019-03-27 09:49 | PN ---
S CIWA - CIWA Score Nausea/Vomitin-Mild Nausea/No Vomiting Muscle Tremors: 3 Anxiety: 3 Agitation: 2 Paroxysmal Sweats: 2 Orientation: 1-Uncertain about Date (date of week) Tacttile Disturbances: 0-None Auditory Disturbances: 0-None Visual Disturbances: 0-None Headache: 0-None Present CIWA-Ar Total Score: 12 BHS Progress Note (SOAP) Subjective: doing well with librium detox regimen feeling tired resting on bed bp elevation begin amlodipin 5 mg po daily continue seizure treatment keppra 1000 mg po bid Objective: 03/27/19 09:51 Vital Signs Temperature 97.0 F L 03/27/19 09:14 Pulse Rate 97 H 03/27/19 09:14 Respiratory Rate 18 03/27/19 09:14 Blood Pressure 152/93 03/27/19 09:14 O2 Sat by Pulse Oximetry (%) 03/27/19 09:52 lab pending begin amlodipine 5 mg po daily Assessment: 03/27/19 09:52 alcohol withdrawal sx Plan: continue librium detox regimen
[2019-03-27] MEDS ORDERED: amLODIPine BESYLATE 5 MG TABLET (FP) PO SCH (10:00)
[2019-03-27] MEDS ORDERED: FOLIC ACID 1 MG TABLET (FP) PO SCH (10:00)
[2019-03-27] MEDS: levETIRAcetam 500 MG TABLET (FP) PO SCH ×2 (10:21→22:06)
[2019-03-27] MEDS: busPIRone HCL 10 MG TABLET (FP) PO SCH ×2 (10:21→22:06)
[2019-03-27] MEDS: PRENATAL VITAMINS W/ FOLIC ACID TABLET (FP) PO SCH (10:21)
[2019-03-27 11:19] LABS: HEMATOCRIT 41.9 % (35.4-49); MCHC 33.3 g/dl (32.0-35.9); MEAN PLT VOLUME 7.3 fl (7.5-11.1); PLATELET COUNT 411 K/MM3 (134-434); RBC 4.51 M/mm3 (4.00-5.60); WHITE BLOOD COUNT 8.9 K/mm3 (4.0-10.0)
[2019-03-27 11:20] LABS: ALBUMIN 3.7 g/dl (3.4-5.0); BILIRUBIN,TOTAL 0.4 mg/dL (0.2-1); BLOOD UREA NITROGEN 7.1 mg/dL (7-18); CALCIUM 9.8 mg/dL (8.5-10.1); CREATININE 0.9 mg/dL (0.55-1.3); POTASSIUM 4.1 mmol/L (3.5-5.1); TOT PROT 6.8 g/dl (6.4-8.2)
[2019-03-27] MEDS ORDERED: NICOTINE POLACRILEX 4 MG GUM BUC PRN (11:40)
[2019-03-27] MEDS: NICOTINE 21 MG/24 HOURS TOPICAL PATCH TD SCH (13:20)
--- NOTE | 2019-03-27 15:01 | CONSULT ---
[facility] Psychiatric Consult - Data Date of interview: 03/27/19 Admission source: [facility] Identifying data: This is one of multiple admissions to [facility] for this 43 y/ o male self-referred for detoxification. SONI issues : alcohol, nicotine. Seen on 3 . Patient is single, no children, domiciled (lives with his mother), unemployed and dependent on relatives for financial assistance. Substance Abuse History: Discussed with the patient. Details in current [facility] report as follows : Smoking history: Current every day smoker. Have you smoked in the past 12 months: Yes. Aproximately how many cigarettes per day: 20. Cigars Per Day: 0. Hx Chewing Tobacco Use: No. Initiated information on smoking cessation: Yes. 'Breaking Loose' booklet given: 03/26/19. - Substances abused. Alcohol. Substance route: Oral. Frequency: Daily. Amount used: 12 25oz CANS OF BEER. Age of first use: 16. Date of last use: Medical History: Bronchial asthma, GERD and substance-related seizures. Psychiatric History: Patient denies history of psychiatric hospitalizations. Diagnosed with Anxiety Disorder and Panic Disorder. Mr Aquino sees a psychiatrist , for medication management (effexor 75 mg/bid + buspar 10 mg/bid + remeron 30 mg/hs), [facility] [place] [facility] Patient denies history of suicide attempts. Physical/Sexual Abuse/Trauma History: No reported history of abuse. Additional Comment: Urine drug screen results: BZO-Benzodiazepines. Noted. Mental Status Exam - Mental Status Exam Alert and Oriented to: Time, Place, Person Cognitive Function: Good Patient Appearance: Unkempt, Disheveled Mood: Nervous, Withdrawn Affect: Mood Congruent, Constricted Patient Behavior: Fatigued, Appropriate, Cooperative Speech Pattern: Clear Voice Loudness: Normal Thought Process: Goal Oriented Thought Disorder: Not Present Hallucinations: Denies Suicidal Ideation: Denies Homicidal Ideation: Denies Insight/Judgement: Poor Sleep: Poorly, Difficulty falling asleep Appetite: Good Muscle strength/Tone: Normal Gait/Station: Normal Psychiatric Findings - Problem List ([place] 1, 2,3) (1) Alcohol dependence with uncomplicated withdrawal Current Visit: Yes Status: Acute (2) Anxiety disorder Current Visit: Yes Status: Chronic (3) MDD (major depressive disorder) Current Visit: Yes Status: Chronic Comment: Self-report. (4) Insomnia Current Visit: Yes Status: Chronic (5) Nicotine dependence Current Visit: No Status: Chronic Qualifiers: Nicotine product type: cigarettes Substance use status: uncomplicated Qualified Code(s): F17.210 - Nicotine dependence, cigarettes, uncomplicated - Initial Treatment Plan Initial Treatment Plan: Case conference with medical students (with patient's verbal permission). Sleep hygiene. Psychoeducation. AA meetings. Support. External pharmacy activity reviewed (noted refills dated 02/12/19).Resumed : effexor 37.5 mg po bid + remeron 15 mg po hs + buspar 10 mg po bid. Side effects /benefits of each drug are discussed with patient. Mr Aquino gave verbal consent for this plan of care. Observation.
[2019-03-27] MEDS: chlordiazePOXIDE HCL 25 MG CAPSULE PO PRN (19:22)
[2019-03-27] MEDS: PROCHLORPERAZINE MALEATE 5 MG TABLET PO PRN (20:22)
[2019-03-27] MEDS: MIRTAZAPINE 15 MG TABLET (FP) PO SCH (22:06)
[2019-03-27] MEDS: THIAMINE HCL 100 MG TABLET (FP) PO SCH (22:06)
[2019-03-28] MEDS: VENLAFAXINE HCL 37.5 MG TABLET PO SCH ×3 (00:01→22:09)
[2019-03-28] MEDS: chlordiazePOXIDE HCL 25 MG CAPSULE PO SCH ×4 (05:55→22:08)
[2019-03-28] MEDS: hydrOXYzine PAMOATE 50 MG CAPSULE (FP) PO SCH ×3 (05:55→22:09)
[2019-03-28] MEDS ORDERED: LOPERAMIDE HCL 2 MG CAPSULE PO ONE (09:46)
--- NOTE | 2019-03-28 09:49 | PN ---
S CIWA - CIWA Score Nausea/Vomitin-Mild Nausea/No Vomiting Muscle Tremors: 2 Anxiety: 3 Agitation: 2 Paroxysmal Sweats: No Perspiration Orientation: 0-Oriented Tacttile Disturbances: 0-None Auditory Disturbances: 0-None Visual Disturbances: 0-None Headache: 1-Very Mild CIWA-Ar Total Score: 9 S Progress Note (SOAP) Subjective: had diarrhea x 1 earlier today ate breakfast tolerate food and fluid well moist oral mucosa imodium 4 mg po x 1 Objective: 03/28/19 09:47 Vital Signs Temperature 98.0 F 03/28/19 09:14 Pulse Rate 128 H 03/28/19 09:14 Respiratory Rate 20 03/28/19 09:14 Blood Pressure 156/93 03/28/19 09:14 O2 Sat by Pulse Oximetry (%) Laboratory Last Values WBC 8.9 K/mm3 (4.0-10.0) 03/27/19 07:45 RBC 4.51 M/mm3 (4.00-5.60) 03/27/19 07:45 Hgb 14.0 GM/dL (11.7-16.9) 03/27/19 07:45 Hct 41.9 % (35.4-49) 03/27/19 07:45 MCV 93.0 fl (80-96) 03/27/19 07:45 MCH 31.0 pg (25.7-33.7) 03/27/19 07:45 MCHC 33.3 g/dl (32.0-35.9) 03/27/19 07:45 RDW 14.0 % (11.9-15.9) 03/27/19 07:45 Plt Count 411 K/MM3 (134-434) 03/27/19 07:45 MPV 7.3 fl (7.5-11.1) L 03/27/19 07:45 Sodium 142 mmol/L (136-145) 03/27/19 07:45 Potassium 4.1 mmol/L (3.5-5.1) 03/27/19 07:45 Chloride 106 mmol/L (98-107) 03/27/19 07:45 Carbon Dioxide 28 mmol/L (21-32) 03/27/19 07:45 Anion Gap 8 MMOL/L (8-16) 03/27/19 07:45 BUN 7.1 mg/dL (7-18) 03/27/19 07:45 Creatinine 0.9 mg/dL (0.55-1.3) 03/27/19 07:45 Est GFR (CKD-EPI)AfAm 119.97 03/27/19 07:45 Est GFR (CKD-EPI)NonAf 103.51 03/27/19 07:45 Random Glucose 79 mg/dL (74-106) 03/27/19 07:45 Calcium 9.8 mg/dL (8.5-10.1) 03/27/19 07:45 Total Bilirubin 0.4 mg/dL (0.2-1) 03/27/19 07:45 AST 29 U/L (15-37) 03/27/19 07:45 ALT 24 U/L (13-61) 03/27/19 07:45 Alkaline Phosphatase 84 U/L (45-117) 03/27/19 07:45 Total Protein 6.8 g/dl (6.4-8.2) 03/27/19 07:45 Albumin 3.7 g/dl (3.4-5.0) 03/27/19 07:45 RPR Titer Nonreactive (NONREACTIVE) 03/27/19 07:45 lab noted 03/28/19 09:48 bp elevation increase amlodipine to 10 mg po daily Assessment: 03/28/19 09:49 alcohol withdrawal sx Plan: continue librium detox regimen
[2019-03-28] MEDS: busPIRone HCL 10 MG TABLET (FP) PO SCH ×2 (10:22→22:09)
[2019-03-28] MEDS: PRENATAL VITAMINS W/ FOLIC ACID TABLET (FP) PO SCH (10:22)
[2019-03-28] MEDS: amLODIPine BESYLATE 10 MG TABLET (FP) PO SCH (10:22)
[2019-03-28] MEDS: levETIRAcetam 500 MG TABLET (FP) PO SCH ×2 (10:22→22:09)
[2019-03-28] MEDS: NICOTINE 21 MG/24 HOURS TOPICAL PATCH TD SCH (10:23)
[2019-03-28] MEDS: hydrOXYzine PAMOATE 25 MG CAPSULE (FP) PO PRN ×2 (10:26→20:56)
[2019-03-28] MEDS: chlordiazePOXIDE HCL 25 MG CAPSULE PO PRN (13:16)
[2019-03-28] MEDS: PROCHLORPERAZINE MALEATE 5 MG TABLET PO PRN ×2 (14:00→17:58)
[2019-03-28] MEDS: MIRTAZAPINE 15 MG TABLET (FP) PO SCH (22:08)
[2019-03-28] MEDS: THIAMINE HCL 100 MG TABLET (FP) PO SCH (22:09)
[2019-03-29] MEDS ORDERED: chlordiazePOXIDE HCL 10 MG CAPSULE PO PRN
[2019-03-29] MEDS: chlordiazePOXIDE HCL 10 MG CAPSULE PO SCH ×2 (05:43→10:04)
[2019-03-29] MEDS: hydrOXYzine PAMOATE 50 MG CAPSULE (FP) PO SCH ×2 (05:44→13:23)
[2019-03-29] MEDS: amLODIPine BESYLATE 10 MG TABLET (FP) PO SCH (10:04)
[2019-03-29] MEDS: busPIRone HCL 10 MG TABLET (FP) PO SCH (10:04)
[2019-03-29] MEDS: levETIRAcetam 500 MG TABLET (FP) PO SCH (10:04)
[2019-03-29] MEDS: VENLAFAXINE HCL 37.5 MG TABLET PO SCH (10:05)
[2019-03-29] MEDS: PRENATAL VITAMINS W/ FOLIC ACID TABLET (FP) PO SCH (10:05)
[2019-03-29] MEDS: NICOTINE 21 MG/24 HOURS TOPICAL PATCH TD SCH (10:05)
--- NOTE | 2019-03-29 10:09 | PN ---
S CIWA - CIWA Score Nausea/Vomitin-No Nausea/No Vomiting Muscle Tremors: 1-None Visible, but [place] Anxiety: 3 Agitation: 0-Normal Activity Paroxysmal Sweats: 2 Orientation: 0-Oriented Tacttile Disturbances: 1-Very Mild Itch/Numbness Auditory Disturbances: 0-None Visual Disturbances: 1-Very Mild Sensitivity Headache: 1-Very Mild CIWA-Ar Total Score: 9 BHS Progress Note (SOAP) Subjective: c/o of anxious, interrupted sleep, chills Objective: 03/29/19 10:09 Vital Signs Temperature 97.1 F L 03/29/19 09:10 Pulse Rate 127 H 03/29/19 09:10 Respiratory Rate 20 03/29/19 09:10 Blood Pressure 133/86 03/29/19 09:10 O2 Sat by Pulse Oximetry (%) Laboratory Last Values WBC 8.9 K/mm3 (4.0-10.0) 03/27/19 07:45 RBC 4.51 M/mm3 (4.00-5.60) 03/27/19 07:45 Hgb 14.0 GM/dL (11.7-16.9) 03/27/19 07:45 Hct 41.9 % (35.4-49) 03/27/19 07:45 MCV 93.0 fl (80-96) 03/27/19 07:45 MCH 31.0 pg (25.7-33.7) 03/27/19 07:45 MCHC 33.3 g/dl (32.0-35.9) 03/27/19 07:45 RDW 14.0 % (11.9-15.9) 03/27/19 07:45 Plt Count 411 K/MM3 (134-434) 03/27/19 07:45 MPV 7.3 fl (7.5-11.1) L 03/27/19 07:45 Sodium 142 mmol/L (136-145) 03/27/19 07:45 Potassium 4.1 mmol/L (3.5-5.1) 03/27/19 07:45 Chloride 106 mmol/L (98-107) 03/27/19 07:45 Carbon Dioxide 28 mmol/L (21-32) 03/27/19 07:45 Anion Gap 8 MMOL/L (8-16) 03/27/19 07:45 BUN 7.1 mg/dL (7-18) 03/27/19 07:45 Creatinine 0.9 mg/dL (0.55-1.3) 03/27/19 07:45 Est GFR (CKD-EPI)AfAm 119.97 03/27/19 07:45 Est GFR (CKD-EPI)NonAf 103.51 03/27/19 07:45 Random Glucose 79 mg/dL (74-106) 03/27/19 07:45 Calcium 9.8 mg/dL (8.5-10.1) 03/27/19 07:45 Total Bilirubin 0.4 mg/dL (0.2-1) 03/27/19 07:45 AST 29 U/L (15-37) 03/27/19 07:45 ALT 24 U/L (13-61) 03/27/19 07:45 Alkaline Phosphatase 84 U/L (45-117) 03/27/19 07:45 Total Protein 6.8 g/dl (6.4-8.2) 03/27/19 07:45 Albumin 3.7 g/dl (3.4-5.0) 03/27/19 07:45 RPR Titer Nonreactive (NONREACTIVE) 03/27/19 07:45 Assessment: 03/29/19 13:27 Patient Aox3, no acute distress no adventitious breath sounds EENT WNL no tremors present full ROM no gait abnormality, ambulating in the unit Plan: increase PO fluids one time dose of clondine 0.1 mg d/t elevated pulse and elevated BP secondary to withdrawal sx continue detox continue to monitor
[2019-03-29] MEDS ORDERED: cloNIDine HCL 0.1 MG TABLET PO ONE (10:25)
[2019-03-29] MEDS ORDERED: COLLOIDAL OATMEAL 1 BAR EACH TP PRN (10:31)
[2019-03-29] MEDS: PROCHLORPERAZINE MALEATE 5 MG TABLET PO PRN (10:37)
[2019-03-29 13:17] VITALS: BP 116/73; PULSE 92; TEMP 97
--- NOTE | 2019-03-29 13:23 | DS ---
[facility] Detox Discharge Summary Admission Date: 03/26/19 Discharge Date: 03/29/19 - History Present History: Alcohol Dependence Additional Comments: Patient left AMA, no longer wishes to continue treatment. Patient encourage to continue treatment to no avail. Patient advised on the risk of discontinue treatment. Patient verbalizes understanding. Narcan Kit offered, patient declined. Patient to follow up with primary care provider, if worsening symptoms are present patient is to seek medical attention or call 911 Pertinent Past History: PMHX: asthma Vital Signs Temperature 97.0 F L 03/29/19 13:16 Pulse Rate 92 H 03/29/19 13:16 Respiratory Rate 20 03/29/19 13:16 Blood Pressure 116/73 03/29/19 13:16 O2 Sat by Pulse Oximetry (%) Laboratory Last Values WBC 8.9 K/mm3 (4.0-10.0) 03/27/19 07:45 RBC 4.51 M/mm3 (4.00-5.60) 03/27/19 07:45 Hgb 14.0 GM/dL (11.7-16.9) 03/27/19 07:45 Hct 41.9 % (35.4-49) 03/27/19 07:45 MCV 93.0 fl (80-96) 03/27/19 07:45 MCH 31.0 pg (25.7-33.7) 03/27/19 07:45 MCHC 33.3 g/dl (32.0-35.9) 03/27/19 07:45 RDW 14.0 % (11.9-15.9) 03/27/19 07:45 Plt Count 411 K/MM3 (134-434) 03/27/19 07:45 MPV 7.3 fl (7.5-11.1) L 03/27/19 07:45 Sodium 142 mmol/L (136-145) 03/27/19 07:45 Potassium 4.1 mmol/L (3.5-5.1) 03/27/19 07:45 Chloride 106 mmol/L (98-107) 03/27/19 07:45 Carbon Dioxide 28 mmol/L (21-32) 03/27/19 07:45 Anion Gap 8 MMOL/L (8-16) 03/27/19 07:45 BUN 7.1 mg/dL (7-18) 03/27/19 07:45 Creatinine 0.9 mg/dL (0.55-1.3) 03/27/19 07:45 Est GFR (CKD-EPI)AfAm 119.97 03/27/19 07:45 Est GFR (CKD-EPI)NonAf 103.51 03/27/19 07:45 Random Glucose 79 mg/dL (74-106) 03/27/19 07:45 Calcium 9.8 mg/dL (8.5-10.1) 03/27/19 07:45 Total Bilirubin 0.4 mg/dL (0.2-1) 03/27/19 07:45 AST 29 U/L (15-37) 03/27/19 07:45 ALT 24 U/L (13-61) 03/27/19 07:45 Alkaline Phosphatase 84 U/L (45-117) 03/27/19 07:45 Total Protein 6.8 g/dl (6.4-8.2) 03/27/19 07:45 Albumin 3.7 g/dl (3.4-5.0) 03/27/19 07:45 RPR Titer Nonreactive (NONREACTIVE) 03/27/19 07:45 Patient Aox3 no acute distress no adventitious breath sounds EENT WNL full ROM no gait abnormality - Physical Exam Results Vital Signs: Vital Signs Temperature 97.0 F L 03/29/19 13:16 Pulse Rate 92 H 03/29/19 13:16 Respiratory Rate 20 03/29/19 13:16 Blood Pressure 116/73 03/29/19 13:16 O2 Sat by Pulse Oximetry (%) - Treatment Hospital Course: Discharged Condition Good - Medication Discharge Medications: Ambulatory Orders Mirtazapine [Remeron -] 30 mg PO HS 02/07/17 Venlafaxine HCl [Effexor -] 75 mg PO TID 04/27/18 hydrOXYzine PAMOATE [Vistaril -] 50 mg PO TID 09/13/18 Buspirone HCl [Buspar -] 10 mg PO BID 01/16/19 Folic Acid 1 mg PO DAILY #14 tablet 01/24/19 Acamprosate Calcium [Campral -] 666 mg PO TID 02/16/19 Mirtazapine [Remeron -] 30 mg PO HS #30 tablet 03/29/19 levETIRAcetam [Keppra -] 1,000 mg PO BID 30 Days #60 tablet 03/29/19 - Diagnosis (1) Alcohol dependence with uncomplicated withdrawal Current Visit: Yes Status: Acute (2) Asthma Current Visit: Yes Status: Chronic Qualifiers: Asthma severity: mild Asthma persistence: intermittent Asthma complication type: uncomplicated Qualified Code(s): J45.20 - Mild intermittent asthma, uncomplicated - AMA Did Patient Leave Against Medical Advice: Yes
[2019-03-30] MEDS ORDERED: chlordiazePOXIDE HCL 10 MG CAPSULE PO SCH (05:00)
[2019-03-31] MEDS ORDERED: chlordiazePOXIDE HCL 10 MG CAPSULE PO ONE (05:00)
== END 2019-03-29 13:42 | disposition left against medical advice (07) | DRG 770 ==
LOC: YASAS 15:06 → Y3N 20:11
PROVIDERS: ADMIT Surgery; ATTEND Surgery
PROC: HZ2ZZZZ Detoxification Services for Substance Abuse Treatment (ICD-10-PCS; principal; 2019-03-26)
DX: F10.230 Alcohol dependence with withdrawal, uncomplicated (principal); F17.210 Nicotine dependence, cigarettes, uncomplicated; F41.9 Anxiety disorder, unspecified; F32.9 Major depressive disorder, single episode, unspecified; G40.909 Epilepsy, unspecified, not intractable, without status epilepticus; J45.20 Mild intermittent asthma, uncomplicated; R03.0 Elevated blood-pressure reading, without diagnosis of hypertension; G47.00 Insomnia, unspecified; K21.9 Gastro-esophageal reflux disease without esophagitis; Z88.8 Allergy status to other drugs, medicaments and biological substances
CPT/HCPCS: 36415; 80053; 85027; 86593; J0735

== ENCOUNTER 2019-05-10 12:07 | Inpatient (IN) | payer OTHER ==
--- NOTE | 2019-05-10 15:12 | HP ---
CIWA Score Nausea/Vomitin Muscle Tremors: 3 Anxiety: 2 Agitation: 2 Paroxysmal Sweats: 2 Orientation: 0-Oriented Tacttile Disturbances: 0-None Auditory Disturbances: 0-None Visual Disturbances: 0-None Headache: 0-None Present CIWA-Ar Total Score: 12 - Admission Criteria OASAS Guidelines: Admission for Medically Managed Detox: Requires at least one of the followin. CIWA greater than 12 2. Seizures within the past 24 hours 3. Delirium tremens within the past 24 hours 4. Hallucinations within the past 24 hours 5. Acute intervention needed for co occurring medical disorder 6. Acute intervention needed for co occurring psychiatric disorder 7. Severe withdrawal that cannot be handled at a lower level of care (continued vomiting, continued diarrhea, abnormal vital signs) requiring intravenous medication and/or fluids 8. Admitting History and Physical - Admission Chief Complaint: Alcohol detox History of Present Illness: Pt is a 43 yo M with PMHx panic, anxiety, asthma, post traumatic nerve damage L leg, presenting for alcohol detox Last detox [facility] 03/21, said he lost an Uncle and restarted and has been drinking daily for a month Has also had rehab in the past Has been throwing up daily, vomited this am. Currently feels nauseous. ETOH: Last alcohol this am- 12noon- used 3 cans beer and 1 nips Vodka Drinks daily eight 25 floz of beer a day and 2 pints of vodka Last Seizure- December 19, on keppra 100mg bid , took keppra this am Blackouts- in past past Started drinking at 16, Has been drinking 14 years Sober longest for 1 year about 4 years ago, detox, rehab and AAA Benzos: Was in [facility] and received librium unsure of date. 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 No problems with the law, never went to custodial History Source: Patient Limitations to Obtaining History: No Limitations - Past Medical History Pulmonary: Yes: Asthma - Smoking History Smoking history: Current every day smoker Have you smoked in the past 12 months: Yes Aproximately how many cigarettes per day: 20 - Alcohol/Substance Use Hx Alcohol Use: Yes Admission ROS S - HPI Allergies/Adverse Reactions: Allergies Allergy/AdvReac Type Severity Reaction Status Date / Time diphenhydramine HCl Allergy Severe Difficulty Verified 05/10/19 13:27 [From Benadryl] Breathing - Ebola screening Have you traveled outside of the country in the last 21 days: No (NN) Have you had contact with anyone from an Ebola affected area: No Do you have a fever: No - Review of Systems Constitutional: No Symptoms Reported EENT: reports: No Symptoms Reported Respiratory: reports: No Symptoms reported Cardiac: reports: No Symptoms Reported GI: reports: Nausea, Vomiting, Abdominal cramping : reports: No Symptoms Reported Musculoskeletal: reports: No Symptoms Reported Neuro: reports: No Symptoms reported Endocrine: reports: No Symptoms Reported Hematology: reports: No Symptoms Reported Psychiatric: reports: Orientated x3, Anxious Patient History - Patient Medical History Hx Anemia: No Hx Asthma: Yes (on albuterol inhaler) Hx Chronic Obstructive Pulmonary Disease (COPD): No Hx Cancer: No Hx Cardiac Disorders: No Hx Congestive Heart Failure: No Hx Hypertension: No Hx Hypercholesterolemia: No Hx Pacemaker: No HX Cerebrovascular Accident: No Hx Seizures: No Hx Dementia: No Hx Diabetes: No Hx Gastrointestinal Disorders: No Hx Liver Disease: No Hx Genitourinary Disorders: No Hx Sexually Transmitted Disorders: No Hx Renal Disease (ESRD): No Hx Thyroid Disease: No Hx Human Immunodeficiency Virus (HIV): No (last tested 07/20 negative) Hx Hepatitis C: No Hx Depression: Yes Hx Suicide Attempt: No Hx Bipolar Disorder: No Hx Schizophrenia: No - Patient Surgical History Past Surgical History: No Hx Neurologic Surgery: No Hx Cataract Extraction: No Hx Cardiac Surgery: No Hx Lung Surgery: No Hx Breast Surgery: No Hx Breast Biopsy: No Hx Abdominal Surgery: No Hx Appendectomy: No Hx Cholecystectomy: No Hx Genitourinary Surgery: No Hx Section: No Hx Orthopedic Surgery: No Anesthesia Reaction: No - PPD History Date: 04/29/18 Results: 0 mm - Reproductive History Patient is a Female of Child Bearing Age (11 -55 yrs old): No - Smoking Cessation Smoking history: Current every day smoker Have you smoked in the past 12 months: Yes Aproximately how many cigarettes per day: 30 Cigars Per Day: 0 Hx Chewing Tobacco Use: No Initiated information on smoking cessation: Yes 'Breaking Loose' booklet given: 05/10/19 - Substance & Tx. History Hx Alcohol Use: Yes Hx Substance Use: No Substance Use Type: Alcohol Hx Substance Use Treatment: Yes - Substances abused Alcohol Substance route: Oral Frequency: Daily Amount used: 8 25oz CANS OF BEER/ 2PINTS EAND J Age of first use: 16 Date of last use: 05/10/19 Admission Physical Exam S - Vital Signs Vital Signs: Vital Signs - 24 hr 05/10/19 13:29 Temperature 97.1 F L Pulse Rate 102 H Respiratory 19 Rate Blood Pressure 152/92 - Physical General Appearance: Yes: Anxious HEENTM: Yes: Other (tongue ring) Respiratory: Yes: Chest Non-Tender, Lungs Clear Neck: Yes: Within Normal Limits Breast: Yes: Breast Exam Deferred Cardiology: Yes: S1, S2, Tachycardia Abdominal: Yes: Normal Bowel Sounds. No: Tenderness Genitourinary: Yes: Within Normal Limits Back: Yes: Within Normal Limits Musculoskeletal: Yes: Within Normal Limits Extremities: Yes: Within Normal Limits Neurological: Yes: Fully Oriented Integumentary: Yes: Within Normal Limits Cleared for Admission [facility] - Detox or Rehab [facility] Level of Care: Medically Supervised Screened but not Admitted - Documentation of Visit Screened but not Admitted: No Left Prior to Completion of Assessment: No Insurance Authorization Denied: No Patient Does Not Meet Criteria for Admission: No Alternative Treatment/Penitentiary Info Provided: No Breathalyzer - Breathalyzer Breathalyzer: 0.133 Vital Signs - Vital Signs Vital signs refused: No Temperature: 97 F Temperature source: Oral Pulse Rate: 102 Respiratory Rate: 19 Blood Pressure: 152/92 Blood Pressure position: Sitting - Height Height: 1.73 m - Weight Weight: 59.874 kg - BMI Body Mass Index (BMI): 20.0 - Bowel Function Bowel Movement: Yes Urine Drug Screen - Test Device Lot number: [id number] Expiration date: 12/30/20 - Control Is test valid?: Yes - Results Drug screen NEGATIVE: No Urine drug screen results: BZO-Benzodiazepines Inpatient Rehab Admission - Rehab Decision to Admit Inpatient rehab admission?: No
--- NOTE | 2019-05-10 15:27 | PN ---
Teaching Attending Note Name of Resident: Marianne Rodriguez ATTENDING PHYSICIAN STATEMENT I saw and evaluated the patient. I reviewed the resident's note and discussed the case with the resident. I agree with the resident's findings and plan as documented. SUBJECTIVE: pt here requesting detox from etoh use , reports 1 pint liquor and 3 x 24 oz beer/day x 1 month , reports w/d seizures, tremors and blackouts started drinking alcohol 14 yrs ago , longest sobriety 1 yr w/ AA meetings . PMHx panic, anxiety, asthma, post traumatic nerve damage L leg Nicotine : 1 pack/1/2 a day OBJECTIVE: wnwd , mild UE tremors, anxious . Vital Signs - 24 hr 05/10/19 13:29 Temperature 97.1 F L Pulse Rate 102 H Respiratory 19 Rate Blood Pressure 152/92 ASSESSMENT AND PLAN: Alcohol dependence - Librium detox Nicotine dependence- smoking cessation counseling.
[2019-05-10] MEDS ORDERED: MAGNESIUM HYDROX 2400MG/30ML ORAL SUSPENSION 30 ML CUP PO PRN (15:33)
[2019-05-10] MEDS ORDERED: chlordiazePOXIDE HCL 25 MG CAPSULE PO PRN (15:33)
[2019-05-10] MEDS ORDERED: MAGNESIUM CITRATE 300 ML BOTTLE PO PRN (15:33)
[2019-05-10] MEDS ORDERED: IBUPROFEN 400 MG TABLET (FP) PO PRN (15:33)
[2019-05-10] MEDS ORDERED: MENTHOL/PHENOL 1 EACH UD MM PRN (15:33)
[2019-05-10] MEDS ORDERED: BISMUTH SUBSALICYLATE 524 MG/30 ML UD PO PRN (15:33)
[2019-05-10] MEDS ORDERED: ACETAMINOPHEN 325 MG TABLET (FP) PO PRN ×2 (15:33)
[2019-05-10] MEDS: NICOTINE 21 MG/24 HOURS TOPICAL PATCH TD SCH (17:21)
[2019-05-10] MEDS: chlordiazePOXIDE HCL 25 MG CAPSULE PO SCH ×2 (17:22→22:19)
[2019-05-10] MEDS ORDERED: hydrOXYzine PAMOATE 25 MG CAPSULE (FP) PO ONE (17:45)
[2019-05-10] MEDS ORDERED: PROCHLORPERAZINE MALEATE 5 MG TABLET PO ONE (18:00)
[2019-05-10] MEDS: levETIRAcetam 500 MG TABLET (FP) PO SCH (22:19)
[2019-05-10] MEDS: THIAMINE HCL 100 MG TABLET (FP) PO SCH (22:20)
[2019-05-10] MEDS: METHOCARBAMOL 500 MG TABLET PO PRN (22:21)
[2019-05-10] MEDS: MELATONIN 5 MG TABLETS PO PRN (22:21)
[2019-05-11] MEDS: chlordiazePOXIDE HCL 25 MG CAPSULE PO SCH ×4 (05:21→22:21)
[2019-05-11] MEDS: levETIRAcetam 500 MG TABLET (FP) PO SCH ×2 (10:09→22:20)
[2019-05-11] MEDS: NICOTINE 21 MG/24 HOURS TOPICAL PATCH TD SCH (10:09)
[2019-05-11] MEDS: PRENATAL VITAMINS W/ FOLIC ACID TABLET (FP) PO SCH (10:10)
[2019-05-11] MEDS: METHOCARBAMOL 500 MG TABLET PO PRN ×3 (10:10→23:15)
[2019-05-11] MEDS: MAG HYDROX/AL HYDROX/SIMETH 30 ML UNIT-DOSE CUP PO PRN ×2 (10:12→17:15)
[2019-05-11] MEDS ORDERED: hydrOXYzine PAMOATE 25 MG CAPSULE (FP) PO ONE (10:24)
[2019-05-11 11:00] LABS: ALBUMIN 3.7 g/dl (3.4-5.0); BILIRUBIN,TOTAL 0.6 mg/dL (0.2-1); BLOOD UREA NITROGEN 6.7 mg/dL (7-18); POTASSIUM 4.1 mmol/L (3.5-5.1); TOT PROT 6.7 g/dl (6.4-8.2)
[2019-05-11 11:06] LABS: HEMATOCRIT 43.6 % (35.4-49); HEMOGLOBIN 14.6 GM/dL (11.7-16.9); MCH 30.8 pg (25.7-33.7); MCHC 33.6 g/dl (32.0-35.9); MEAN CELL VOLUME 91.7 fl (80-96); MEAN PLT VOLUME 8.1 fl (7.5-11.1); PLATELET COUNT 299 K/MM3 (134-434); RBC 4.75 M/mm3 (4.00-5.60); RDW 13.7 % (11.9-15.9)
--- NOTE | 2019-05-11 11:26 | PN ---
S CIWA - CIWA Score Nausea/Vomitin-No Nausea/No Vomiting Muscle Tremors: 2 Anxiety: 3 Agitation: 0-Normal Activity Paroxysmal Sweats: 3 Orientation: 0-Oriented Tacttile Disturbances: 0-None Auditory Disturbances: 0-None Visual Disturbances: 0-None Headache: 2-Mild CIWA-Ar Total Score: 10 BHS Progress Note (SOAP) Subjective: c/o anxiety, headache, sweats, and shakes. Objective: 05/11/19 11:26 Vital Signs 05/11/19 05/11/19 05/11/19 03:30 06:07 09:28 Temperature 97.4 F L 96.6 F L Pulse Rate 82 85 Respiratory 18 18 18 Rate Blood Pressure 130/69 151/87 Lab Results WBC 7.0 K/mm3 (4.0-10.0) 05/11/19 07:50 RBC 4.75 M/mm3 (4.00-5.60) 05/11/19 07:50 Hgb 14.6 GM/dL (11.7-16.9) 05/11/19 07:50 Hct 43.6 % (35.4-49) 05/11/19 07:50 MCV 91.7 fl (80-96) 05/11/19 07:50 MCHC 33.6 g/dl (32.0-35.9) 05/11/19 07:50 RDW 13.7 % (11.9-15.9) 05/11/19 07:50 Plt Count 299 K/MM3 (134-434) D 05/11/19 07:50 Sodium 139 mmol/L (136-145) 05/11/19 07:50 Potassium 4.1 mmol/L (3.5-5.1) 05/11/19 07:50 Chloride 106 mmol/L (98-107) 05/11/19 07:50 Carbon Dioxide 28 mmol/L (21-32) 05/11/19 07:50 Anion Gap 6 MMOL/L (8-16) L 05/11/19 07:50 BUN 6.7 mg/dL (7-18) L 05/11/19 07:50 Creatinine 1.0 mg/dL (0.55-1.3) 05/11/19 07:50 Random Glucose 77 mg/dL (74-106) 05/11/19 07:50 Calcium 9.0 mg/dL (8.5-10.1) 05/11/19 07:50 Labs noted. Assessment: 05/11/19 11:26 AOX3, in no acute respiratory distress. Full rom, ambulating in the unit. Withdrawal symptoms. Plan: continue detox.
[2019-05-11] MEDS: COLLOIDAL OATMEAL 1 BAR EACH TP PRN (11:56)
--- NOTE | 2019-05-11 12:24 | CONSULT ---
[facility] Psychiatric Consult - Data Date of interview: 05/11/19 Admission source: [facility] Identifying data: Readmission to [facility] for this 43 y/o male self- referred for detoxification (SONI issues : alcohol, nicotine). Interviewed at [address] [place] [address]. Patient is single, no children, domiciled (lives with his mother), unemployed and supported on food stamps + financial assistance from relatives. Substance Abuse History: Discussed with patient. Details in current [facility] report as follows : Smoking history: Current every day smoker. Have you smoked in the past 12 months: Yes. Aproximately how many cigarettes per day: 30. Cigars Per Day: 0. Hx Chewing Tobacco Use: No. Initiated information on smoking cessation : Yes. 'Breaking Loose' booklet given: 05/10/19. - Substance & Tx. History. Hx Alcohol Use: Yes. Hx Substance Use: No. Substance Use Type: Alcohol. Hx Substance Use Treatment: Yes. - Substances abused. Alcohol. Substance route: Oral. Frequency: Daily. Amount used: 8 25oz CANS OF BEER/ 2PINTS EAND J. Age of first use: 16. Date of last use: 05/10/19 Medical History: Medical profile is remarkable for bronchial asthma, GERD and substance-related seizures. Psychiatric History: No reported history of psychiatric hospitalizations. Patient has been diagnosed with Anxiety Disorder and Panic Disorder. Mr Aquino continues to see a psychiatrist for medication management (effexor 75 mg/bid + buspar 10 mg/bid + remeron 15 mg/hs), [facility] in the [place] ([facility]). Denies history of suicide attempts. Physical/Sexual Abuse/Trauma History: Denies history of abuse. Additional Comment: Urine drug screen results: BZO-Benzodiazepines. Noted. Mental Status Exam - Mental Status Exam Alert and Oriented to: Time, Place, Person Cognitive Function: Good Patient Appearance: Unkempt, Disheveled Mood: Nervous, Withdrawn Affect: Mood Congruent, Constricted Patient Behavior: Fatigued, Appropriate, Cooperative Speech Pattern: Clear Voice Loudness: Normal Thought Process: Intact, Goal Oriented Thought Disorder: Not Present Hallucinations: Denies Suicidal Ideation: Denies Insight/Judgement: Poor Sleep: Poorly, Difficulty falling asleep Appetite: Good Muscle strength/Tone: Normal Gait/Station: Normal Psychiatric Findings - Problem List ([place] 1, 2,3) (1) Alcohol dependence with uncomplicated withdrawal Current Visit: Yes Status: Acute (2) Nicotine dependence Current Visit: Yes Status: Chronic Qualifiers: Nicotine product type: cigarettes Substance use status: uncomplicated Qualified Code(s): F17.210 - Nicotine dependence, cigarettes, uncomplicated (3) Anxiety disorder Current Visit: Yes Status: Chronic (4) MDD (major depressive disorder) Current Visit: Yes Status: Chronic Comment: Self-report. (5) Insomnia Current Visit: Yes Status: Chronic - Initial Treatment Plan Initial Treatment Plan: Records revisited ([facility]). Psychoeducation. Sleep hygiene. Detoxification. Support. MAT services discussed with patient. Medications resumed as : effexor 75 mg po bid + remeron 15 mg po hs + buspar 10 mg po bid. Side effects/benefits of these drugs are discussed with patient. Gave verbal consent to MD. Rhodes.
[2019-05-11] MEDS: VENLAFAXINE HCL 75 MG TABLET PO SCH ×2 (13:51→22:20)
[2019-05-11] MEDS ORDERED: MIRTAZAPINE 15 MG TABLET (FP) ONE (21:21)
[2019-05-11] MEDS: busPIRone HCL 10 MG TABLET (FP) PO SCH (22:20)
[2019-05-11] MEDS: MIRTAZAPINE 30 MG TABLET (FP) PO SCH (22:20)
[2019-05-11] MEDS: THIAMINE HCL 100 MG TABLET (FP) PO SCH (22:20)
[2019-05-12] MEDS: chlordiazePOXIDE HCL 25 MG CAPSULE PO SCH ×4 (05:48→22:16)
[2019-05-12] MEDS: PRENATAL VITAMINS W/ FOLIC ACID TABLET (FP) PO SCH (10:24)
[2019-05-12] MEDS: busPIRone HCL 10 MG TABLET (FP) PO SCH ×2 (10:24→22:14)
[2019-05-12] MEDS: VENLAFAXINE HCL 75 MG TABLET PO SCH ×2 (10:24→22:15)
[2019-05-12] MEDS: NICOTINE 21 MG/24 HOURS TOPICAL PATCH TD SCH (10:24)
[2019-05-12] MEDS: METHOCARBAMOL 500 MG TABLET PO PRN ×3 (10:24→22:18)
[2019-05-12] MEDS: levETIRAcetam 500 MG TABLET (FP) PO SCH ×2 (11:19→22:15)
--- NOTE | 2019-05-12 11:20 | PN ---
S CIWA - CIWA Score Nausea/Vomitin-No Nausea/No Vomiting Muscle Tremors: 2 Anxiety: 2 Agitation: 2 Paroxysmal Sweats: No Perspiration Orientation: 0-Oriented Tacttile Disturbances: 0-None Auditory Disturbances: 0-None Visual Disturbances: 0-None Headache: 0-None Present CIWA-Ar Total Score: 6 BHS Progress Note (SOAP) Subjective: 43 years old male admitted on 05/10/19 for alcohol withdrawal sx management treated with librium detox regimen patient tolerated well long history of seizure treated with keppra 1000 mg po bid patient tolerated well Objective: 05/12/19 11:19 Vital Signs Temperature 96.1 F L 05/12/19 09:05 Pulse Rate 85 05/12/19 09:05 Respiratory Rate 18 05/12/19 09:05 Blood Pressure 126/78 05/12/19 09:05 O2 Sat by Pulse Oximetry (%) Laboratory Last Values WBC 7.0 K/mm3 (4.0-10.0) 05/11/19 07:50 RBC 4.75 M/mm3 (4.00-5.60) 05/11/19 07:50 Hgb 14.6 GM/dL (11.7-16.9) 05/11/19 07:50 Hct 43.6 % (35.4-49) 05/11/19 07:50 MCV 91.7 fl (80-96) 05/11/19 07:50 MCH 30.8 pg (25.7-33.7) 05/11/19 07:50 MCHC 33.6 g/dl (32.0-35.9) 05/11/19 07:50 RDW 13.7 % (11.9-15.9) 05/11/19 07:50 Plt Count 299 K/MM3 (134-434) D 05/11/19 07:50 MPV 8.1 fl (7.5-11.1) D 05/11/19 07:50 Sodium 139 mmol/L (136-145) 05/11/19 07:50 Potassium 4.1 mmol/L (3.5-5.1) 05/11/19 07:50 Chloride 106 mmol/L (98-107) 05/11/19 07:50 Carbon Dioxide 28 mmol/L (21-32) 05/11/19 07:50 Anion Gap 6 MMOL/L (8-16) L 05/11/19 07:50 BUN 6.7 mg/dL (7-18) L 05/11/19 07:50 Creatinine 1.0 mg/dL (0.55-1.3) 05/11/19 07:50 Est GFR (CKD-EPI)AfAm 105.62 05/11/19 07:50 Est GFR (CKD-EPI)NonAf 91.13 05/11/19 07:50 Random Glucose 77 mg/dL (74-106) 05/11/19 07:50 Calcium 9.0 mg/dL (8.5-10.1) 05/11/19 07:50 Total Bilirubin 0.6 mg/dL (0.2-1) 05/11/19 07:50 AST 48 U/L (15-37) H 05/11/19 07:50 ALT 49 U/L (13-61) 05/11/19 07:50 Alkaline Phosphatase 77 U/L (45-117) 05/11/19 07:50 Total Protein 6.7 g/dl (6.4-8.2) 05/11/19 07:50 Albumin 3.7 g/dl (3.4-5.0) 05/11/19 07:50 lab noted Assessment: 05/12/19 11:19 alcohol withdrawal sx Plan: continue librium detox regimen
[2019-05-12] MEDS: COLLOIDAL OATMEAL 1 BAR EACH TP PRN (11:26)
[2019-05-12] MEDS: hydrOXYzine PAMOATE 25 MG CAPSULE (FP) PO PRN ×2 (13:42→22:14)
[2019-05-12] MEDS: THIAMINE HCL 100 MG TABLET (FP) PO SCH (22:13)
[2019-05-12] MEDS: MIRTAZAPINE 30 MG TABLET (FP) PO SCH (22:15)
[2019-05-12] MEDS: MELATONIN 5 MG TABLETS PO PRN (22:15)
[2019-05-13] MEDS ORDERED: chlordiazePOXIDE HCL 10 MG CAPSULE PO PRN
[2019-05-13] MEDS: chlordiazePOXIDE HCL 10 MG CAPSULE PO SCH ×4 (05:12→22:28)
[2019-05-13] MEDS: hydrOXYzine PAMOATE 25 MG CAPSULE (FP) PO PRN ×2 (05:13→14:06)
--- NOTE | 2019-05-13 10:25 | PN ---
S CIWA - CIWA Score Nausea/Vomitin-No Nausea/No Vomiting Muscle Tremors: 1-None Visible, but [place] Anxiety: 2 Agitation: 1-Slight > Activity Paroxysmal Sweats: No Perspiration Orientation: 0-Oriented Tacttile Disturbances: 0-None Auditory Disturbances: 0-None Visual Disturbances: 0-None Headache: 0-None Present CIWA-Ar Total Score: 4 [facility] Progress Note (SOAP) Subjective: 43 years old male admitted on 05/10/19 for alcohol withdrawal sx management treated with librium detox regimen c/o abdominal cramping bentyle 20 mg po x 1 adjacent with maalox ate breakfast tolerated food and fluid well Objective: 05/13/19 10:27 Vital Signs Temperature 96.6 F L 05/13/19 09:23 Pulse Rate 85 05/13/19 09:23 Respiratory Rate 16 05/13/19 09:23 Blood Pressure 111/74 05/13/19 09:23 O2 Sat by Pulse Oximetry (%) Laboratory Last Values WBC 7.0 K/mm3 (4.0-10.0) 05/11/19 07:50 RBC 4.75 M/mm3 (4.00-5.60) 05/11/19 07:50 Hgb 14.6 GM/dL (11.7-16.9) 05/11/19 07:50 Hct 43.6 % (35.4-49) 05/11/19 07:50 MCV 91.7 fl (80-96) 05/11/19 07:50 MCH 30.8 pg (25.7-33.7) 05/11/19 07:50 MCHC 33.6 g/dl (32.0-35.9) 05/11/19 07:50 RDW 13.7 % (11.9-15.9) 05/11/19 07:50 Plt Count 299 K/MM3 (134-434) D 05/11/19 07:50 MPV 8.1 fl (7.5-11.1) D 05/11/19 07:50 Sodium 139 mmol/L (136-145) 05/11/19 07:50 Potassium 4.1 mmol/L (3.5-5.1) 05/11/19 07:50 Chloride 106 mmol/L (98-107) 05/11/19 07:50 Carbon Dioxide 28 mmol/L (21-32) 05/11/19 07:50 Anion Gap 6 MMOL/L (8-16) L 05/11/19 07:50 BUN 6.7 mg/dL (7-18) L 05/11/19 07:50 Creatinine 1.0 mg/dL (0.55-1.3) 05/11/19 07:50 Est GFR (CKD-EPI)AfAm 105.62 05/11/19 07:50 Est GFR (CKD-EPI)NonAf 91.13 05/11/19 07:50 Random Glucose 77 mg/dL (74-106) 05/11/19 07:50 Calcium 9.0 mg/dL (8.5-10.1) 05/11/19 07:50 Total Bilirubin 0.6 mg/dL (0.2-1) 05/11/19 07:50 AST 48 U/L (15-37) H 05/11/19 07:50 ALT 49 U/L (13-61) 05/11/19 07:50 Alkaline Phosphatase 77 U/L (45-117) 05/11/19 07:50 Total Protein 6.7 g/dl (6.4-8.2) 05/11/19 07:50 Albumin 3.7 g/dl (3.4-5.0) 05/11/19 07:50 lab noted Assessment: 05/13/19 10:27 alcohol withdrawal sx Plan: continue librium detox regimen
[2019-05-13] MEDS: levETIRAcetam 500 MG TABLET (FP) PO SCH ×2 (10:32→22:28)
[2019-05-13] MEDS: busPIRone HCL 10 MG TABLET (FP) PO SCH ×2 (10:32→22:28)
[2019-05-13] MEDS: VENLAFAXINE HCL 75 MG TABLET PO SCH ×2 (10:34→22:28)
[2019-05-13] MEDS: NICOTINE 21 MG/24 HOURS TOPICAL PATCH TD SCH (10:34)
[2019-05-13] MEDS: PRENATAL VITAMINS W/ FOLIC ACID TABLET (FP) PO SCH (10:34)
[2019-05-13] MEDS: METHOCARBAMOL 500 MG TABLET PO PRN ×2 (10:35→17:30)
[2019-05-13] MEDS ORDERED: DICYCLOMINE HCL 10 MG CAPSULE PO ONE (12:00)
[2019-05-13] MEDS ORDERED: DICYCLOMINE HCL 20 MG TABLET PO ONE (12:00)
[2019-05-13] MEDS: COLLOIDAL OATMEAL 1 BAR EACH TP PRN (19:36)
[2019-05-13] MEDS: MIRTAZAPINE 15 MG TABLET (FP) PO SCH (22:28)
[2019-05-13] MEDS: THIAMINE HCL 100 MG TABLET (FP) PO SCH (22:28)
[2019-05-14] MEDS: chlordiazePOXIDE HCL 10 MG CAPSULE PO SCH ×2 (05:39→17:10)
[2019-05-14] MEDS: levETIRAcetam 500 MG TABLET (FP) PO SCH ×2 (10:08→22:01)
[2019-05-14] MEDS: VENLAFAXINE HCL 75 MG TABLET PO SCH ×2 (10:08→22:01)
[2019-05-14] MEDS: busPIRone HCL 10 MG TABLET (FP) PO SCH ×2 (10:08→22:01)
[2019-05-14] MEDS: PRENATAL VITAMINS W/ FOLIC ACID TABLET (FP) PO SCH (10:08)
[2019-05-14] MEDS: hydrOXYzine PAMOATE 25 MG CAPSULE (FP) PO PRN ×2 (10:08→17:11)
[2019-05-14] MEDS: NICOTINE 21 MG/24 HOURS TOPICAL PATCH TD SCH (10:10)
--- NOTE | 2019-05-14 14:23 | PN ---
[facility] CIWA - CIWA Score Nausea/Vomitin-No Nausea/No Vomiting Muscle Tremors: 1-None Visible, but [place] Anxiety: 1-Mildly Anxious Agitation: 0-Normal Activity Paroxysmal Sweats: No Perspiration Orientation: 0-Oriented Tacttile Disturbances: 0-None Auditory Disturbances: 0-None Visual Disturbances: 0-None Headache: 0-None Present CIWA-Ar Total Score: 2 S Progress Note (SOAP) Subjective: 43 years old male admitted on 05/10/19 for alcohol withdrawal sx management treated with librium detox regimen long history of seizure treated with keppra patient tolerated well Objective: 05/14/19 14:21 Vital Signs Temperature 97.1 F L 05/14/19 13:19 Pulse Rate 69 05/14/19 13:19 Respiratory Rate 18 05/14/19 13:19 Blood Pressure 112/71 05/14/19 13:19 O2 Sat by Pulse Oximetry (%) Laboratory Last Values WBC 7.0 K/mm3 (4.0-10.0) 05/11/19 07:50 RBC 4.75 M/mm3 (4.00-5.60) 05/11/19 07:50 Hgb 14.6 GM/dL (11.7-16.9) 05/11/19 07:50 Hct 43.6 % (35.4-49) 05/11/19 07:50 MCV 91.7 fl (80-96) 05/11/19 07:50 MCH 30.8 pg (25.7-33.7) 05/11/19 07:50 MCHC 33.6 g/dl (32.0-35.9) 05/11/19 07:50 RDW 13.7 % (11.9-15.9) 05/11/19 07:50 Plt Count 299 K/MM3 (134-434) D 05/11/19 07:50 MPV 8.1 fl (7.5-11.1) D 05/11/19 07:50 Sodium 139 mmol/L (136-145) 05/11/19 07:50 Potassium 4.1 mmol/L (3.5-5.1) 05/11/19 07:50 Chloride 106 mmol/L (98-107) 05/11/19 07:50 Carbon Dioxide 28 mmol/L (21-32) 05/11/19 07:50 Anion Gap 6 MMOL/L (8-16) L 05/11/19 07:50 BUN 6.7 mg/dL (7-18) L 05/11/19 07:50 Creatinine 1.0 mg/dL (0.55-1.3) 05/11/19 07:50 Est GFR (CKD-EPI)AfAm 105.62 05/11/19 07:50 Est GFR (CKD-EPI)NonAf 91.13 05/11/19 07:50 Random Glucose 77 mg/dL (74-106) 05/11/19 07:50 Calcium 9.0 mg/dL (8.5-10.1) 05/11/19 07:50 Total Bilirubin 0.6 mg/dL (0.2-1) 05/11/19 07:50 AST 48 U/L (15-37) H 05/11/19 07:50 ALT 49 U/L (13-61) 05/11/19 07:50 Alkaline Phosphatase 77 U/L (45-117) 05/11/19 07:50 Total Protein 6.7 g/dl (6.4-8.2) 05/11/19 07:50 Albumin 3.7 g/dl (3.4-5.0) 05/11/19 07:50 lab noted Assessment: 05/14/19 14:21 alcohol withdrawal sx Plan: continue librium detox regimen
[2019-05-14] MEDS: METHOCARBAMOL 500 MG TABLET PO PRN (17:09)
[2019-05-14] MEDS: MELATONIN 5 MG TABLETS PO PRN (22:01)
[2019-05-14] MEDS: MIRTAZAPINE 15 MG TABLET (FP) PO SCH (22:01)
[2019-05-14] MEDS: THIAMINE HCL 100 MG TABLET (FP) PO SCH (22:01)
[2019-05-15] MEDS ORDERED: chlordiazePOXIDE HCL 10 MG CAPSULE PO ONE (05:00)
[2019-05-15] MEDS: hydrOXYzine PAMOATE 25 MG CAPSULE (FP) PO PRN ×2 (05:41→12:32)
[2019-05-15] MEDS: METHOCARBAMOL 500 MG TABLET PO PRN ×2 (05:41→12:31)
[2019-05-15 09:19] VITALS: BP 124/74; PULSE 81; TEMP 96.6
[2019-05-15] MEDS: busPIRone HCL 10 MG TABLET (FP) PO SCH (09:44)
[2019-05-15] MEDS: VENLAFAXINE HCL 75 MG TABLET PO SCH (09:45)
[2019-05-15] MEDS: PRENATAL VITAMINS W/ FOLIC ACID TABLET (FP) PO SCH (09:45)
[2019-05-15] MEDS: levETIRAcetam 500 MG TABLET (FP) PO SCH (09:45)
[2019-05-15] MEDS: NICOTINE 21 MG/24 HOURS TOPICAL PATCH TD SCH (10:01)
--- NOTE | 2019-05-15 10:59 | DS ---
[facility] Detox Discharge Summary Admission Date: 05/10/19 Discharge Date: 05/15/19 - History Present History: Alcohol Dependence Additional Comments: 43 years old male admitted on 05/10/19 for alcohol withdrawal sx management treated with librium detox regimen patient is alert oriented x 3 respiratory clear lung bilaterally on auscultation extremities full range of motion abdomen soft no rebound tenderness - Physical Exam Results Vital Signs: Vital Signs Temperature 96.6 F L 05/15/19 09:19 Pulse Rate 81 05/15/19 09:19 Respiratory Rate 18 05/15/19 09:19 Blood Pressure 124/74 05/15/19 09:19 O2 Sat by Pulse Oximetry (%) Pertinent Admission Physical Exam Findings: alcohol withdrawal sx Laboratory Last Values WBC 7.0 K/mm3 (4.0-10.0) 05/11/19 07:50 RBC 4.75 M/mm3 (4.00-5.60) 05/11/19 07:50 Hgb 14.6 GM/dL (11.7-16.9) 05/11/19 07:50 Hct 43.6 % (35.4-49) 05/11/19 07:50 MCV 91.7 fl (80-96) 05/11/19 07:50 MCH 30.8 pg (25.7-33.7) 05/11/19 07:50 MCHC 33.6 g/dl (32.0-35.9) 05/11/19 07:50 RDW 13.7 % (11.9-15.9) 05/11/19 07:50 Plt Count 299 K/MM3 (134-434) D 05/11/19 07:50 MPV 8.1 fl (7.5-11.1) D 05/11/19 07:50 Sodium 139 mmol/L (136-145) 05/11/19 07:50 Potassium 4.1 mmol/L (3.5-5.1) 05/11/19 07:50 Chloride 106 mmol/L (98-107) 05/11/19 07:50 Carbon Dioxide 28 mmol/L (21-32) 05/11/19 07:50 Anion Gap 6 MMOL/L (8-16) L 05/11/19 07:50 BUN 6.7 mg/dL (7-18) L 05/11/19 07:50 Creatinine 1.0 mg/dL (0.55-1.3) 05/11/19 07:50 Est GFR (CKD-EPI)AfAm 105.62 05/11/19 07:50 Est GFR (CKD-EPI)NonAf 91.13 05/11/19 07:50 Random Glucose 77 mg/dL (74-106) 05/11/19 07:50 Calcium 9.0 mg/dL (8.5-10.1) 05/11/19 07:50 Total Bilirubin 0.6 mg/dL (0.2-1) 05/11/19 07:50 AST 48 U/L (15-37) H 05/11/19 07:50 ALT 49 U/L (13-61) 05/11/19 07:50 Alkaline Phosphatase 77 U/L (45-117) 05/11/19 07:50 Total Protein 6.7 g/dl (6.4-8.2) 05/11/19 07:50 Albumin 3.7 g/dl (3.4-5.0) 05/11/19 07:50 lab noted - Treatment Hospital Course: Detox Protocol Followed, Detoxed Safely, Responded well, Discharged Condition Good, Rehab Referral Accepted Patient has Accepted [facility] Ref[facility] - Medication Discharge Medications: Ambulatory Orders Mirtazapine [Remeron -] 15 mg PO HS 02/07/17 Venlafaxine HCl [Effexor -] 75 mg PO TID 04/27/18 Acamprosate Calcium [Campral -] 666 mg PO TID 02/16/19 Buspirone HCl [Buspar -] 10 mg PO BID #30 tablet 03/29/19 Thiamine HCl [B-1] 100 mg PO DAILY 05/10/19 Buspirone HCl [Buspar -] 10 mg PO BID #30 tablet 05/13/19 levETIRAcetam [Keppra -] 1,000 mg PO BID 30 Days #60 tablet 05/14/19 - Diagnosis (1) Alcohol dependence with uncomplicated withdrawal Current Visit: Yes Status: Acute (2) Nicotine dependence Current Visit: Yes Status: Acute Qualifiers: Nicotine product type: cigarettes Substance use status: in withdrawal Qualified Code(s): F17.213 - Nicotine dependence, cigarettes, with withdrawal (3) Asthma Current Visit: Yes Status: Chronic Qualifiers: Asthma severity: mild Asthma persistence: intermittent Asthma complication type: uncomplicated Qualified Code(s): J45.20 - Mild intermittent asthma, uncomplicated - AMA Did Patient Leave Against Medical Advice: No CIWA Score - CIWA Score Nausea/Vomitin-No Nausea/No Vomiting Muscle Tremors: 1-None Visible, but [place] Anxiety: 0-No Anxiety, at Ease Agitation: 0-Normal Activity Paroxysmal Sweats: No Perspiration Orientation: 0-Oriented Tacttile Disturbances: 0-None Auditory Disturbances: 0-None Visual Disturbances: 0-None Headache: 0-None Present CIWA-Ar Total Score: 1
== END 2019-05-15 12:33 | disposition other institution (70) | DRG 775 ==
LOC: YASAS 12:07 → Y3N 17:00
PROVIDERS: ADMIT Allergy & Immunology; ATTEND Allergy & Immunology
PROC: HZ2ZZZZ Detoxification Services for Substance Abuse Treatment (ICD-10-PCS; principal; 2019-05-10)
DX: F10.230 Alcohol dependence with withdrawal, uncomplicated (principal); F17.210 Nicotine dependence, cigarettes, uncomplicated; F41.9 Anxiety disorder, unspecified; F32.9 Major depressive disorder, single episode, unspecified; J45.20 Mild intermittent asthma, uncomplicated; G47.00 Insomnia, unspecified; K21.9 Gastro-esophageal reflux disease without esophagitis; Z88.8 Allergy status to other drugs, medicaments and biological substances
CPT/HCPCS: 36415; 80053; 85027

== ENCOUNTER 2019-05-15 13:06 | Inpatient (IN) | payer OTHER ==
--- NOTE | 2019-05-15 11:07 | HP ---
[facility] Rehab Assess/Revision - Admission History Admitted to Rehab from: [facility] Date of Admission to Rehab: 05/15/19 - Findings Detox History & Physical reviewed: Yes Concur with findings: Yes Comments/Additional Findings: transferred from detox to rehab admission as per protocol Inpatient Rehab Admission - Rehab Decision to Admit Inpatient rehab admission?: Yes - Initial Determination Are CD services needed?: Yes Free of communicable disease: Yes Not in need of hospitalization: Yes - Rehab Admission Criteria Previous failed treatment: Yes Poor recovery environment: Yes Comorbidities: Yes Lacks judgement: Yes Patient is meeting Inpatient Rehab admission criteria:: Yes
[~2019-05-15 13:06] MED LIST: ACETAMINOPHEN 325 MG TABLET (FP) PO PRN; IBUPROFEN 400 MG TABLET (FP) PO PRN; LOPERAMIDE HCL 2 MG CAPSULE PO PRN; MAGNESIUM CITRATE 300 ML BOTTLE PO PRN; MAGNESIUM HYDROX 2400MG/30ML ORAL SUSPENSION 30 ML CUP PO PRN; MENTHOL/PHENOL 1 EACH UD MM PRN; NICOTINE POLACRILEX 4 MG GUM BC PRN; P-EPHED 60MG/TRIPROLIDI 2.5MG TABLET PO PRN; guaiFENesin 200 MG/10 ML 10 ML UNIT-DOSE CUPS PO PRN
[2019-05-15] MEDS ORDERED: hydrOXYzine PAMOATE 25 MG CAPSULE (FP) PO PRN (15:46)
[2019-05-15] MEDS ORDERED: MELATONIN 5 MG TABLETS PO PRN (22:00)
[2019-05-15] MEDS ORDERED: VENLAFAXINE HCL PO SCH (22:00)
[2019-05-15] MEDS: levETIRAcetam 500 MG TABLET (FP) PO SCH (22:05)
[2019-05-15] MEDS: THIAMINE HCL 100 MG TABLET (FP) PO SCH (22:06)
[2019-05-15] MEDS: busPIRone HCL 10 MG TABLET (FP) PO SCH (22:06)
[2019-05-15] MEDS: VENLAFAXINE HCL 75 MG TABLET PO SCH (22:06)
[2019-05-15] MEDS: MIRTAZAPINE 30 MG TABLET (FP) PO SCH (22:07)
[2019-05-15] MEDS: METHOCARBAMOL 500 MG TABLET PO PRN (22:08)
[2019-05-15] MEDS ORDERED: COLLOIDAL OATMEAL 1 BAR EACH TP PRN (22:32)
[2019-05-16] MEDS: HYDROCORTISONE 1% TOPICAL CREAM 30 GM TUBE TP SCH ×2 (10:33→21:31)
[2019-05-16] MEDS: levETIRAcetam 500 MG TABLET (FP) PO SCH ×2 (10:34→21:29)
[2019-05-16] MEDS: busPIRone HCL 10 MG TABLET (FP) PO SCH ×2 (10:34→21:29)
[2019-05-16] MEDS: VENLAFAXINE HCL 75 MG TABLET PO SCH ×2 (10:34→21:30)
[2019-05-16] MEDS: NICOTINE 21 MG/24 HOURS TOPICAL PATCH TD SCH (10:34)
[2019-05-16] MEDS: PRENATAL VITAMINS W/ FOLIC ACID TABLET (FP) PO SCH (10:34)
[2019-05-16] MEDS: METHOCARBAMOL 500 MG TABLET PO PRN ×2 (10:34→21:31)
[2019-05-16] MEDS: hydrOXYzine PAMOATE 25 MG CAPSULE (FP) PO PRN ×2 (10:36→17:39)
--- NOTE | 2019-05-16 16:32 | PN ---
S Progress Note Note: Pt is a 43 y/o male with a hx of SONI admitted to rehab from [address] [place] [address] after completing treatment. P reports he is on Campral and would like to restart in rehab. Confirmed medication on pt's [facility] pharmacy as posted online. Pt is alert o x 3. Oob ambulating with steady gait and participated in unit activities today. Vital Signs - 24 hr 05/16/19 05/16/19 00:30 07:20 Temperature 97.4 F L Pulse Rate 97 H Respiratory 20 20 Rate Blood Pressure 140/74 A/P s/p detox Restart Campral 666 mg po TID from 05/17/19. Increase po fluids.
[2019-05-16] MEDS: MIRTAZAPINE 30 MG TABLET (FP) PO SCH (21:30)
[2019-05-16] MEDS: THIAMINE HCL 100 MG TABLET (FP) PO SCH (21:30)
[2019-05-17] MEDS: METHOCARBAMOL 500 MG TABLET PO PRN ×3 (08:37→21:31)
[2019-05-17] MEDS: hydrOXYzine PAMOATE 25 MG CAPSULE (FP) PO PRN ×3 (08:37→21:31)
[2019-05-17] MEDS: NICOTINE 21 MG/24 HOURS TOPICAL PATCH TD SCH (09:58)
[2019-05-17] MEDS: levETIRAcetam 500 MG TABLET (FP) PO SCH ×2 (09:58→21:30)
[2019-05-17] MEDS: busPIRone HCL 10 MG TABLET (FP) PO SCH ×2 (09:58→17:48)
[2019-05-17] MEDS ORDERED: ACAMPROSATE CALCIUM 333 MG TABLET.DR PO SCH (10:00)
[2019-05-17] MEDS: HYDROCORTISONE 1% TOPICAL CREAM 30 GM TUBE TP SCH ×2 (10:00→21:29)
[2019-05-17] MEDS: ACAMPROSATE CALCIUM 333 MG TABLET.DR PO SCH ×3 (11:33→21:30)
[2019-05-17] MEDS: PRENATAL VITAMINS W/ FOLIC ACID TABLET (FP) PO SCH (11:34)
[2019-05-17] MEDS: VENLAFAXINE HCL 75 MG TABLET PO SCH ×2 (11:38→17:48)
[2019-05-17] MEDS: THIAMINE HCL 100 MG TABLET (FP) PO SCH (21:31)
[2019-05-17] MEDS: MIRTAZAPINE 15 MG TABLET (FP) PO SCH (21:31)
[2019-05-18] MEDS: ACAMPROSATE CALCIUM 333 MG TABLET.DR PO SCH ×3 (07:15→21:16)
[2019-05-18] MEDS: busPIRone HCL 10 MG TABLET (FP) PO SCH ×2 (07:15→17:05)
[2019-05-18] MEDS: hydrOXYzine PAMOATE 25 MG CAPSULE (FP) PO PRN ×3 (07:16→21:18)
[2019-05-18] MEDS: METHOCARBAMOL 500 MG TABLET PO PRN ×3 (07:16→21:17)
[2019-05-18] MEDS: VENLAFAXINE HCL 75 MG TABLET PO SCH ×2 (07:18→17:05)
[2019-05-18] MEDS: PRENATAL VITAMINS W/ FOLIC ACID TABLET (FP) PO SCH (10:12)
[2019-05-18] MEDS: levETIRAcetam 500 MG TABLET (FP) PO SCH ×2 (10:12→21:16)
[2019-05-18] MEDS: NICOTINE 21 MG/24 HOURS TOPICAL PATCH TD SCH (10:12)
[2019-05-18] MEDS: HYDROCORTISONE 1% TOPICAL CREAM 30 GM TUBE TP SCH ×2 (10:13→21:18)
[2019-05-18] MEDS: MAG HYDROX/AL HYDROX/SIMETH 30 ML UNIT-DOSE CUP PO PRN (11:02)
[2019-05-18] MEDS: MIRTAZAPINE 15 MG TABLET (FP) PO SCH (21:16)
[2019-05-18] MEDS: THIAMINE HCL 100 MG TABLET (FP) PO SCH (21:16)
[2019-05-19] MEDS: ACAMPROSATE CALCIUM 333 MG TABLET.DR PO SCH ×3 (06:37→21:18)
[2019-05-19] MEDS: METHOCARBAMOL 500 MG TABLET PO PRN ×3 (07:36→21:19)
[2019-05-19] MEDS: hydrOXYzine PAMOATE 25 MG CAPSULE (FP) PO PRN ×3 (07:36→21:20)
[2019-05-19] MEDS: busPIRone HCL 10 MG TABLET (FP) PO SCH ×2 (07:37→17:07)
[2019-05-19] MEDS: VENLAFAXINE HCL 75 MG TABLET PO SCH ×2 (08:09→17:07)
[2019-05-19] MEDS: NICOTINE 21 MG/24 HOURS TOPICAL PATCH TD SCH (09:40)
[2019-05-19] MEDS: levETIRAcetam 500 MG TABLET (FP) PO SCH ×2 (09:40→21:19)
[2019-05-19] MEDS: HYDROCORTISONE 1% TOPICAL CREAM 30 GM TUBE TP SCH ×2 (09:40→21:18)
[2019-05-19] MEDS: PRENATAL VITAMINS W/ FOLIC ACID TABLET (FP) PO SCH (09:40)
[2019-05-19] MEDS: MAG HYDROX/AL HYDROX/SIMETH 30 ML UNIT-DOSE CUP PO PRN (09:42)
[2019-05-19] MEDS ORDERED: ONDANSETRON 8 MG TABLET (FP) PO PRN (12:29)
[2019-05-19] MEDS ORDERED: ONDANSETRON 4 MG TABLET PO PRN (12:37)
[2019-05-19] MEDS: ONDANSETRON *ODT* 4 MG TABLET SL PRN (12:48)
[2019-05-19] MEDS ORDERED: levETIRAcetam 250 MG TABLET (FP) PO ONE (19:44)
[2019-05-19] MEDS: MIRTAZAPINE 15 MG TABLET (FP) PO SCH (21:17)
[2019-05-19] MEDS: THIAMINE HCL 100 MG TABLET (FP) PO SCH (21:18)
[2019-05-20] MEDS: ACAMPROSATE CALCIUM 333 MG TABLET.DR PO SCH ×3 (06:41→21:20)
[2019-05-20] MEDS: METHOCARBAMOL 500 MG TABLET PO PRN ×3 (06:43→21:16)
[2019-05-20] MEDS: hydrOXYzine PAMOATE 25 MG CAPSULE (FP) PO PRN (06:43)
[2019-05-20] MEDS: busPIRone HCL 10 MG TABLET (FP) PO SCH ×2 (07:34→17:25)
[2019-05-20] MEDS: VENLAFAXINE HCL 75 MG TABLET PO SCH ×2 (07:35→17:26)
[2019-05-20] MEDS: ONDANSETRON *ODT* 4 MG TABLET SL PRN (09:25)
[2019-05-20] MEDS ORDERED: levETIRAcetam 250 MG TABLET (FP) PO ONE (09:30)
[2019-05-20] MEDS: levETIRAcetam 500 MG TABLET (FP) PO SCH ×2 (10:34→21:16)
[2019-05-20] MEDS: PRENATAL VITAMINS W/ FOLIC ACID TABLET (FP) PO SCH (10:34)
[2019-05-20] MEDS: NICOTINE 21 MG/24 HOURS TOPICAL PATCH TD SCH (10:34)
[2019-05-20] MEDS: HYDROCORTISONE 1% TOPICAL CREAM 30 GM TUBE TP SCH ×2 (10:34→21:21)
--- NOTE | 2019-05-20 10:46 | PN ---
S Progress Note Note: Pt c/o nausea with no vomiting x 2 days. Pt reports was started on zofran with some relief. Pt reports queezy abdomen.Denies dizziness or headache today but reports had them yesterday. Requests wants to take it easy today. Vital Signs - 24 hr 05/20/19 05/20/19 05/20/19 00:30 03:30 07:11 Temperature 97.8 F Pulse Rate 79 Respiratory 17 18 18 Rate Blood Pressure 113/72 Abdomen:soft,+bs,flat,nt. A/P nausea Zofran as directed Increase po fluids as tolerated. D/w pt about unit activities as tolerated x 24 hours.
[2019-05-20] MEDS: hydrOXYzine PAMOATE 50 MG CAPSULE (FP) PO PRN ×2 (13:06→19:34)
[2019-05-20] MEDS: MIRTAZAPINE 15 MG TABLET (FP) PO SCH (21:16)
[2019-05-20] MEDS: THIAMINE HCL 100 MG TABLET (FP) PO SCH (21:21)
[2019-05-21] MEDS: ACAMPROSATE CALCIUM 333 MG TABLET.DR PO SCH ×3 (06:26→21:14)
[2019-05-21] MEDS: METHOCARBAMOL 500 MG TABLET PO PRN ×3 (06:26→21:13)
[2019-05-21] MEDS: hydrOXYzine PAMOATE 50 MG CAPSULE (FP) PO PRN ×3 (06:26→18:00)
[2019-05-21] MEDS: busPIRone HCL 10 MG TABLET (FP) PO SCH (07:10)
[2019-05-21] MEDS: VENLAFAXINE HCL 75 MG TABLET PO SCH ×2 (07:10→17:17)
[2019-05-21] MEDS: ONDANSETRON *ODT* 4 MG TABLET SL PRN (07:39)
--- NOTE | 2019-05-21 09:56 | PN ---
[facility] Progress Note Note: Pt requesting psych re-evaluation for meds. C/o Increased Anxiety, irritability. Pt reports Vistaril is not helping. Currently on Remeron,Effexor and Buspar. Denies s/h/i. Vital Signs - 24 hr 05/21/19 05/21/19 05/21/19 00:30 03:30 06:50 Temperature 97.6 F Pulse Rate 99 H Respiratory 18 18 18 Rate Blood Pressure 110/72 A/P Hx of MDD Insomnia Follow up with psych re-evaluation today.
[2019-05-21] MEDS: HYDROCORTISONE 1% TOPICAL CREAM 30 GM TUBE TP SCH ×2 (10:12→21:15)
[2019-05-21] MEDS: PRENATAL VITAMINS W/ FOLIC ACID TABLET (FP) PO SCH (10:12)
[2019-05-21] MEDS: NICOTINE 21 MG/24 HOURS TOPICAL PATCH TD SCH (10:12)
[2019-05-21] MEDS: levETIRAcetam 500 MG TABLET (FP) PO SCH ×2 (10:12→21:13)
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
[2019-05-21] MEDS: THIAMINE HCL 100 MG TABLET (FP) PO SCH (21:13)
[2019-05-21] MEDS: MIRTAZAPINE 15 MG TABLET (FP) PO SCH (21:13)
[2019-05-22] MEDS: hydrOXYzine PAMOATE 50 MG CAPSULE (FP) PO PRN ×2 (06:17→11:57)
[2019-05-22] MEDS: METHOCARBAMOL 500 MG TABLET PO PRN (06:17)
[2019-05-22] MEDS: ACAMPROSATE CALCIUM 333 MG TABLET.DR PO SCH (06:17)
[2019-05-22 06:49] VITALS: BP 140/95; PULSE 116; TEMP 97.4
[2019-05-22] MEDS: VENLAFAXINE HCL 75 MG TABLET PO SCH (07:06)
[2019-05-22] MEDS: ONDANSETRON *ODT* 4 MG TABLET SL PRN (08:25)
[2019-05-22] MEDS: PRENATAL VITAMINS W/ FOLIC ACID TABLET (FP) PO SCH (10:08)
[2019-05-22] MEDS: NICOTINE 21 MG/24 HOURS TOPICAL PATCH TD SCH (10:09)
[2019-05-22] MEDS: levETIRAcetam 500 MG TABLET (FP) PO SCH (10:09)
[2019-05-22] MEDS: HYDROCORTISONE 1% TOPICAL CREAM 30 GM TUBE TP SCH (10:10)
--- NOTE | 2019-05-22 11:37 | DS ---
[facility] Rehab Discharge Summary - [facility] Rehab Discharge Summary Admission Date: 05/15/19 Discharge Date: 05/22/19 - History Present History: Alcohol dependence Additional Comments: Pt is a 43 y/o male with a hx of alcohol dependence admitted to rehab and requesting early discharge today to follow up [facility] program [facility] program(S[facility] Roach) at [facility]. Pt reports he called and made appointment to follow up tomorrow after discharge today. Pt reports he has a psychiatric provider, Dr. Pollock at [facility]. Pt reports he will utilizes [place], [place] for primary medical care. Pertinent Past History: Asthma Seizure disorder Panic Disorder Depression/Anxiety disorder. - Discharge Physical Exam Vital Signs: Vital Signs Temperature 97.4 F L 05/22/19 06:48 Pulse Rate 116 H 05/22/19 06:48 Respiratory Rate 16 05/22/19 06:48 Blood Pressure 140/95 05/22/19 06:48 O2 Sat by Pulse Oximetry (%) Alert o x 3,high anxiety patient(calms down when encouraged) nad oob ambulating with steady gait cardiac:s1 s2,tachy lungs:cta,john. abdomen:soft,flat,+bs,nt extremities/skin:no edema,full ROM/weight bearing,skin intact. Pertinent Admission Physical Exam Findings: Unchanged from admission - Treatment Discharge Condition: Discharge condition good Hospital Course: rehabilitated safely - Medication Discharge Medications: Ambulatory Orders Mirtazapine [Remeron -] 30 mg PO HS 02/07/17 Thiamine HCl [B-1] 100 mg PO BID 05/10/19 Buspirone HCl [Buspar -] 10 mg PO TID 05/15/19 Venlafaxine HCl ER [Effexor Xr -] 75 mg PO BID 05/15/19 Acamprosate Calcium [Campral -] 666 mg PO TID 30 Days #180 tablet. 05/22/19 levETIRAcetam [Keppra -] 1,000 mg PO BID 30 Days #60 tablet 05/22/19 - Medication-Assisted Treatment (MAT) Medication-Assisted Treatment (MAT): No - Discharge Instructions Diet, activity, other medical instructions: Diet:Regular Activity: oob ad monse Other medical instructions:follow up with CD aftercare as scheduled Follow up with primary care at [facility] within 1-2 weeks after discharge. - Diagnosis (1) Alcohol dependence Current Visit: Yes Status: Chronic Qualifiers: Substance use status: uncomplicated Qualified Code(s): F10.20 - Alcohol dependence, uncomplicated (2) Asthma Current Visit: Yes Status: Chronic Qualifiers: Asthma severity: mild Asthma persistence: intermittent Asthma complication type: uncomplicated Qualified Code(s): J45.20 - Mild intermittent asthma, uncomplicated (3) Nicotine dependence Current Visit: Yes Status: Chronic Qualifiers: Nicotine product type: cigarettes Substance use status: uncomplicated Qualified Code(s): F17.210 - Nicotine dependence, cigarettes, uncomplicated (4) Alcohol withdrawal seizure Current Visit: Yes Status: Suspected Qualifiers: Complication of substance-induced condition: with unspecified complication Qualified Code(s): F10.239 - Alcohol dependence with withdrawal, unspecified; R56.9 - Unspecified convulsions - Follow-up Referral Minutes to complete discharge: 25 - AMA Did Patient Leave Against Medical Advice: No Additional Comments: Courtesy Rx for [place] electronically sent to pt's preferred home pharmacy for continuous 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
--- NOTE | 2019-05-22 12:01 | PN ---
[facility] Progress Note Note: Patient is discharged today. Scripts for 30 days supply of medications(Effexor XR 75 mg/bid, Remeron 15 mg/hs, Buspar 15 mg/tid) are electronically transmitted to [facility] at [address] [place] [address]
== END 2019-05-22 12:25 | disposition home or self-care (01) | DRG 772 ==
LOC: YASAS 13:06 → Y5N 13:07
PROVIDERS: ADMIT Neuromusculoskeletal Medicine & OMM; ATTEND Neuromusculoskeletal Medicine & OMM
PROC: HZ42ZZZ Group Counseling for Substance Abuse Treatment, Cognitive-Behavioral (ICD-10-PCS; principal; 2019-05-15)
DX: F10.20 Alcohol dependence, uncomplicated (principal); F10.280 Alcohol dependence with alcohol-induced anxiety disorder; F10.282 Alcohol dependence with alcohol-induced sleep disorder; F17.210 Nicotine dependence, cigarettes, uncomplicated; F41.0 Panic disorder [episodic paroxysmal anxiety]; J45.20 Mild intermittent asthma, uncomplicated; K21.9 Gastro-esophageal reflux disease without esophagitis; G40.909 Epilepsy, unspecified, not intractable, without status epilepticus; G47.00 Insomnia, unspecified; R11.0 Nausea; Z88.8 Allergy status to other drugs, medicaments and biological substances
CPT/HCPCS: Q0162

== ENCOUNTER 2021-09-12 12:12 | Inpatient (IN) | payer OTHER ==
[2021-09-12] MEDS ORDERED: MENTHOL/PHENOL 1 EACH UD MM PRN (13:32)
[2021-09-12] MEDS ORDERED: LOPERAMIDE HCL 2 MG CAPSULE PO PRN (13:32)
[2021-09-12] MEDS ORDERED: NICOTINE 10 MG CARTRIDGE (INHALER) IH PRN (13:32)
[2021-09-12] MEDS ORDERED: ACETAMINOPHEN 325 MG TABLET (FP) PO PRN (13:32)
[2021-09-12] MEDS ORDERED: METHOCARBAMOL 500 MG TABLET PO PRN (13:32)
[2021-09-12] MEDS ORDERED: MAGNESIUM CITRATE 300 ML BOTTLE PO PRN (13:32)
[2021-09-12] MEDS ORDERED: MAGNESIUM HYDROX 2400MG/30ML ORAL SUSPENSION 30 ML CUP PO PRN (13:32)
[2021-09-12] MEDS ORDERED: MAG HYDROX/AL HYDROX/SIMETH 30 ML UNIT-DOSE CUP PO PRN (13:32)
[2021-09-12] MEDS ORDERED: chlordiazePOXIDE HCL 25 MG CAPSULE PO PRN (13:32)
[2021-09-12] MEDS ORDERED: IBUPROFEN 400 MG TABLET (FP) PO PRN (13:32)
[2021-09-12 14:03] VITALS: BMI 22.1
[2021-09-12] MEDS ORDERED: COLLOIDAL OATMEAL 1 BAR EACH TP PRN (14:19)
[2021-09-12] MEDS ORDERED: ALBUTEROL SO4 HFA INHALER IH PRN (14:19)
[2021-09-12] MEDS: ONDANSETRON *ODT* 4 MG TABLET SL PRN ×2 (14:49→22:01)
[2021-09-12] MEDS: NICOTINE 21 MG/24 HOURS TOPICAL PATCH TD SCH (14:52)
[2021-09-12] MEDS: hydrOXYzine PAMOATE 25 MG CAPSULE (FP) PO SCH ×3 (14:52→22:02)
[2021-09-12] MEDS: ACETAMINOPHEN 325 MG TABLET (FP) PO PRN (17:01)
[2021-09-12] MEDS: BISMUTH SUBSALICYLATE 524 MG/30 ML PO PRN (17:04)
[2021-09-12] MEDS: chlordiazePOXIDE HCL 25 MG CAPSULE PO SCH ×2 (17:41→22:04)
[2021-09-12] MEDS ORDERED: THIAMINE HCL 100 MG TABLET (FP) PO SCH (22:00)
[2021-09-12] MEDS ORDERED: MELATONIN 5 MG TABLETS PO SCH (22:00)
[2021-09-12] MEDS: levETIRAcetam 500 MG TABLET (FP) PO SCH (22:03)
[2021-09-13] MEDS: chlordiazePOXIDE HCL 25 MG CAPSULE PO SCH ×2 (06:08→10:11)
[2021-09-13] MEDS: hydrOXYzine PAMOATE 25 MG CAPSULE (FP) PO SCH ×3 (06:08→13:41)
[2021-09-13] MEDS: ACETAMINOPHEN 325 MG TABLET (FP) PO PRN (06:09)
[2021-09-13] MEDS: ONDANSETRON *ODT* 4 MG TABLET SL PRN (08:28)
[2021-09-13 09:51] LABS: ALBUMIN 3.4 g/dl (3.4-5.0); CALCIUM 8.6 mg/dL (8.5-10.1)
[2021-09-13 09:52] LABS: BLOOD UREA NITROGEN 8.2 mg/dL (7-18)
[2021-09-13 09:54] LABS: BILIRUBIN,TOTAL 0.4 mg/dL (0.2-1); TOT PROT 6.4 g/dl (6.4-8.2)
[2021-09-13] MEDS ORDERED: COLLOIDAL OATMEAL 1 BAR EACH TP SCH (10:00)
[2021-09-13] MEDS ORDERED: PRENATAL VITAMINS W/ FOLIC ACID TABLET (FP) PO SCH (10:00)
[2021-09-13 10:05] LABS: HEMATOCRIT 38.4 % (35.4-49); HEMOGLOBIN 13.1 GM/dL (11.7-16.9); MCH 31.3 pg (25.7-33.7); MCHC 34.2 g/dl (32.0-35.9); MEAN CELL VOLUME 91.6 fl (80-96); MEAN PLT VOLUME 7.8 fl (7.5-11.1); PLATELET COUNT 308 10^3/uL (134-434); RBC 4.19 M/mm3 (4.00-5.60); RDW 16.2 % (11.9-15.9); WHITE BLOOD COUNT 8.6 K/mm3 (4.0-10.0)
[2021-09-13] MEDS: BISMUTH SUBSALICYLATE 524 MG/30 ML PO PRN ×2 (10:10→13:24)
[2021-09-13] MEDS: NICOTINE 21 MG/24 HOURS TOPICAL PATCH TD SCH (10:11)
[2021-09-13] MEDS: levETIRAcetam 500 MG TABLET (FP) PO SCH (10:11)
[2021-09-13 12:48] VITALS: BP 112/75; PULSE 90; TEMP 97.5
[2021-09-13] MEDS ORDERED: VENLAFAXINE HCL 150 MG E.R. CAPSULE PO SCH (13:15)
[2021-09-13] MEDS ORDERED: GABAPENTIN 300 MG CAPSULE PO SCH (14:00)
[2021-09-13] MEDS ORDERED: MIRTAZAPINE 30 MG TABLET PO SCH (22:00)
[2021-09-14] MEDS ORDERED: chlordiazePOXIDE HCL 25 MG CAPSULE PO SCH (05:00)
[2021-09-14 06:06] LABS: SARS-CoV-2 NAA Not Detected (Not Detected)
[2021-09-15] MEDS ORDERED: chlordiazePOXIDE HCL 10 MG CAPSULE PO PRN
[2021-09-15] MEDS ORDERED: chlordiazePOXIDE HCL 10 MG CAPSULE PO SCH (05:00)
[2021-09-16] MEDS ORDERED: chlordiazePOXIDE HCL 10 MG CAPSULE PO SCH (05:00)
[2021-09-17] MEDS ORDERED: chlordiazePOXIDE HCL 10 MG CAPSULE PO ONE (05:00)
== END 2021-09-13 14:13 | disposition left against medical advice (07) | DRG 770 ==
LOC: YASAS 12:12 → Y3N 13:43
PROVIDERS: ADMIT Allergy & Immunology; ATTEND Allergy & Immunology
PROC: HZ2ZZZZ Detoxification Services for Substance Abuse Treatment (ICD-10-PCS; principal; 2021-09-12)
DX: F10.230 Alcohol dependence with withdrawal, uncomplicated (principal); F14.10 Cocaine abuse, uncomplicated; F17.210 Nicotine dependence, cigarettes, uncomplicated; F19.24 Other psychoactive substance dependence with psychoactive substance-induced mood disorder; F32.A Depression, unspecified; G62.9 Polyneuropathy, unspecified; J45.20 Mild intermittent asthma, uncomplicated; R56.9 Unspecified convulsions; Z88.8 Allergy status to other drugs, medicaments and biological substances
CPT/HCPCS: 36415; 80053; 85027; 86780; 87811; C9803; Q0162; U0003; U0005